=== PATIENT | male | born 1945 | race Caucasian/White ===

== ENCOUNTER 2016-08-15 05:56 | Inpatient (IN) | payer MEDICARE ==
[~2016-08-15] VITALS: Ht 167.6 cm; Wt 71.5 kg
[~2016-08-15 05:56] MED LIST: ADVAIR 500/501 DISK INH; ALDACTONE25 MG PO; ANUSOL-HC 2.5%30 GM RC; ASPIRIN81 MG PO; BYSTOLIC5 MG PO; CATAPRES0.1 MG PO; CELEXA20 MG PO; CORDARONE200 MG PO; EXFORGE HCT 101 EAC2 PO; FERREX 150 PLUS1 CAP PO; FLAGYL500 MG PO; FOLIC ACID1 MG PO; HYDROCODONE-APA1 TAB PO; K-DUR20 MEQ PO; K-TAB10 MEQ PO; LASIX20 MG PO; LASIX40 MG PO; MELATONIN 3 MG1 TAB PO; METOPROLOL TART50 MG PO; MUCINEX DM ER1 EAC1 PO; PLAVIX75 MG PO; PRAVACHOL20 MG PO; PREDNISONE20 MG PO; PROTONIX40 MG PO; SODIUM BICARBO650 MG PO; STERAPRED 5MG 125 MG PO; TESSALON PERLE100 MG PO; THIAMINE HCL50 MG PO; XOPENEX 1.1.25 MG/3 UPD; ZITHROMAX250 MG PO; ZITHROMAX500 MG PO
[2016-08-15 06:40] LABS: BASOPHILS 0.3 % (0.0-2.0); EOSINOPHILS 0.3 % (0-7); HEMATOCRIT 37.7 % (42.0-54.0); HEMOGLOBIN 12.1 g/dL (13.5-17.5); IMMATURE GRANULOCYTES 0.4 % (0-5); MCH 28.1 pg (26.0-34.0); MCHC 32.1 g/dL (31.0-37.0); MCV 87.5 fL (80.0-100.0); MEAN PLATELET VOLUME 10.5 fL (7.4-10.4); PLATELET COUNT 242 10x3/uL (130-400); RBC 4.31 10x6/uL (4.20-6.10); RDW 14.8 % (11.5-14.5); WBC 10.3 10x3/uL (4.8-10.8)
[2016-08-15 07:07] LABS: ALBUMIN 3.4 g/dL (3.4-5.0); ANION GAP 17.3 mmol/L (8-16); BILIRUBIN - TOTAL 1.3 mg/dL (0.2-1.3); CALCIUM 8.8 mg/dL (8.5-10.1); CARBON DIOXIDE 20.4 mmol/L (21.0-32.0); CREATININE - SERUM 2.1 mg/dL (0.6-1.3); POTASSIUM - SERUM 3.7 mmol/L (3.5-5.1); PROTEIN - SERUM 6.8 g/dL (6.4-8.2)
[2016-08-15 07:23] LABS: TROPONIN-I 0.072 ng/mL (0.000-0.060)
[2016-08-15 09:56] VITALS: BP 176/111; BMI 25.8
[2016-08-15] MEDS ORDERED: BYSTOLIC5 MG PO (10:32)
[2016-08-15] MEDS ORDERED: MUCINEX DM ER1 EAC1 PO (10:34)
[2016-08-15] MEDS ORDERED: LASIX40 MG PO (10:36)
[2016-08-15 11:47] VITALS: BP 156/106
[2016-08-15 15:54] VITALS: BP 150/97
--- NOTE | 2016-08-15 20:21 | NUR ---
BEDSIDE SHIFT REPORT COMPLETED PT LAYING IN BED EYES CLOSED PT APPERS TO BE SLEEPING PT ON 2LNC AND RESPERATIONS EVEN AND UNLABORED. TELEMETRY READING SR AND NO DISTRESS OBSERVED CALL LIGHT IN REACH SRX2 BED LOW AND LOCKED WILL MONITOR
[2016-08-15 20:37] VITALS: BP 150/87
--- NOTE | 2016-08-15 22:29 | NUR ---
PT ASSESSMENT COMPLETED NO DISTRESS OBSERVED CALL LIGHT IN REACH SRX2 BED LOW AND LOCKED RESPERATIONS EVEN AND UNLABORED WILL MONITOR
[2016-08-16 00:17] VITALS: BP 135/97
[2016-08-16 04:29] VITALS: BP 142/109
[2016-08-16 05:09] LABS: BASOPHILS 0.1 % (0.0-2.0); EOSINOPHILS 0 % (0-7); HEMATOCRIT 35.3 % (42.0-54.0); HEMOGLOBIN 11.3 g/dL (13.5-17.5); IMMATURE GRANULOCYTES 0.4 % (0-5); LYMPHOCYTES 2.6 % (15-50); MCV 87.4 fL (80.0-100.0); MEAN PLATELET VOLUME 10.6 fL (7.4-10.4); MONOCYTES 2.8 % (2-11); NEUTROPHILS 94.1 % (40-80); PLATELET COUNT 204 10x3/uL (130-400); RBC 4.04 10x6/uL (4.20-6.10); RDW 14.8 % (11.5-14.5); WBC 11.4 10x3/uL (4.8-10.8)
[2016-08-16 05:43] LABS: ANION GAP 16.8 mmol/L (8-16); CREATININE - SERUM 2.5 mg/dL (0.6-1.3); POTASSIUM - SERUM 3.8 mmol/L (3.5-5.1)
[2016-08-16 07:55] VITALS: BP 148/94
--- NOTE | 2016-08-16 09:34 | NUR ---
RESP UL ON 02 2L NC. TELEMETRY SR. CALL LIGHT IN REACH. WILL MONITOR NEEDS.
[2016-08-16 12:00] VITALS: BP 144/91
[2016-08-16 16:00] VITALS: BP 176/114
--- NOTE | 2016-08-16 19:19 | NUR ---
BEDSIDE SHIFT REPORT COMPLETED PT LAYING IN BED ON LEFT SIDE EYES CLOSED PT APPERS TO BE SLEEPING NO DISTRESS OBSERVED RESPERATIONS EVEN AND UNLABORED ON 2LNC IVP SALINE LOCKED WILL MONITOR CALL LIGHT IN REACH SRX2 BED LOW AND LOCKED
[2016-08-16 20:00] VITALS: BP 139/93
--- NOTE | 2016-08-16 21:59 | NUR ---
PT LAYING IN BED EYES CLOSED NO DISTRESS OBSERVED PT APPERS TO BE SLEEPING CALL LIGHT IN REACH SRX2 WILL MONITOR
[2016-08-17] VITALS: BP 120/75
[2016-08-17 04:00] VITALS: BP 138/91
[2016-08-17 05:46] LABS: BASOPHILS 0 % (0.0-2.0); EOSINOPHILS 0 % (0-7); HEMATOCRIT 36.6 % (42.0-54.0); HEMOGLOBIN 11.5 g/dL (13.5-17.5); IMMATURE GRANULOCYTES 0.5 % (0-5); MCH 27.8 pg (26.0-34.0); MCHC 31.4 g/dL (31.0-37.0); MCV 88.6 fL (80.0-100.0); MEAN PLATELET VOLUME 10.8 fL (7.4-10.4); MONOCYTES 2.3 % (2-11); NEUTROPHILS 95.2 % (40-80); PLATELET COUNT 231 10x3/uL (130-400); RBC 4.13 10x6/uL (4.20-6.10); RDW 15.1 % (11.5-14.5)
[2016-08-17 06:04] LABS: ANION GAP 16.1 mmol/L (8-16); CALCIUM 9.1 mg/dL (8.5-10.1); CARBON DIOXIDE 25.4 mmol/L (21.0-32.0); CREATININE - SERUM 2.9 mg/dL (0.6-1.3); POTASSIUM - SERUM 3.5 mmol/L (3.5-5.1)
[2016-08-17 06:11] LABS: WBC 17.2 10x3/uL (4.8-10.8)
--- NOTE | 2016-08-17 07:14 | NUR ---
RESTING QUIETLY EYES CLOSED RESP UNLABORED NAD NOTED
[2016-08-17 08:07] VITALS: BP 137/89
[2016-08-17 12:07] VITALS: BP 136/98
[2016-08-17 12:37] VITALS: Ht 167.6 cm; Wt 71.5 kg
[2016-08-17 16:00] VITALS: BP 135/82
[2016-08-17 19:00] VITALS: BP 139/82
[2016-08-18] VITALS (7 sets, daily range): BP systolic 113–191; BP diastolic 68–114
--- NOTE | 2016-08-18 01:14 | NUR ---
RESTING, WATCHING TELEVISION. UNLABORED BREATHING, TELEMETRY SHOWING 71 BPM IN NSR. 2L NC FOR O2 THERAPY. BED LOW AND LOCKED, CALL LIGHT IN REACH, WILL CONTINUE TO MONITOR.
--- NOTE | 2016-08-18 01:22 | NUR ---
NO S&S OF ACUTED DISTRESS NOTED.
--- NOTE | 2016-08-18 03:05 | NUR ---
RESTING WITH EYES CLOSED, RESPERATIONS EVEN, NO S/S DISTRESS NOTED.
--- NOTE | 2016-08-18 07:14 | NUR ---
0655-AM ROUNDING DONE. ON HEART MONITOR SHOWING SR, HR 60. ON 2L PER NC, BILATERAL LUNGS ARE CLEAR. SALINE LOCK SEEN TO RIGHT FOREARM. DENIES NEEDS AT PRESENT TIME. WILL CONTINUE TO MONITOR.
--- NOTE | 2016-08-18 12:27 | NUR ---
JUST FINISHING HIS LUNCH. DENIES NEEDS AT THIS TIME. WILL CONTINUE TO MONITOR.
[2016-08-18 12:33] LABS: BASOPHILS 0 % (0.0-2.0); EOSINOPHILS 0 % (0-7); HEMOGLOBIN 12.8 g/dL (13.5-17.5); IMMATURE GRANULOCYTES 0.2 % (0-5); LYMPHOCYTES 1.6 % (15-50); MCH 28.3 pg (26.0-34.0); MCHC 31.2 g/dL (31.0-37.0); NEUTROPHILS 95.2 % (40-80); PLATELET COUNT 220 10x3/uL (130-400); RBC 4.52 10x6/uL (4.20-6.10)
[2016-08-18 12:34] LABS: MCV 90.7 fL (80.0-100.0); WBC 12.8 10x3/uL (4.8-10.8)
[2016-08-18 12:40] LABS: ANION GAP 13.6 mmol/L (8-16); CALCIUM 8.2 mg/dL (8.5-10.1); CARBON DIOXIDE 29.1 mmol/L (21.0-32.0); CREATININE - SERUM 2.7 mg/dL (0.6-1.3); POTASSIUM - SERUM 3.7 mmol/L (3.5-5.1)
--- NOTE | 2016-08-18 15:29 | NUR ---
B/P IS 191/117, CATAPRESS GIVEN ORDERED.
--- NOTE | 2016-08-18 16:18 | NUR ---
RE-CHECKED B/P WITH RESULTS OF 113/68
--- NOTE | 2016-08-18 16:27 | NUR ---
CALL PLACED TO SABAS MARTINEZ NP TO SEE ABOUT GIVING LASIX B/P IS 113/68. AWAITING CALL BACK.
--- NOTE | 2016-08-18 17:04 | NUR ---
SABAS MARTINEZ TO CALL BACK AND TELL ME IT IS OKAY TO HOLD THE LASIX FOR TODAY.
--- NOTE | 2016-08-18 19:50 | NUR ---
ASSESSMENT COMPLETE. A&O. RESPERAITONS EVEN ON 02 AT 2 LITER. IV TO RIGHT FOREARM SL. PT DENIES PAIN OR NEEDS, BED LOW, CL IN REACH.
[2016-08-19 01:12] VITALS: BP 123/74
--- NOTE | 2016-08-19 01:48 | NUR ---
RESTING QUIETLY EYES CLOSED RESP UNLABORED NAD NOTED
--- NOTE | 2016-08-19 02:39 | NUR ---
RESTING WITH EYES CLOSED, RESPERATIONS EVEN, NO S/S DISTRESS NOTED.
[2016-08-19 05:21] VITALS: BP 121/71
[2016-08-19 06:56] LABS: BASOPHILS 0 % (0.0-2.0); EOSINOPHILS 0 % (0-7); HEMATOCRIT 38.7 % (42.0-54.0); IMMATURE GRANULOCYTES 0.5 % (0-5); LYMPHOCYTES 1.9 % (15-50); MCH 27.8 pg (26.0-34.0); MCV 89.6 fL (80.0-100.0); MONOCYTES 3.4 % (2-11); NEUTROPHILS 94.2 % (40-80); PLATELET COUNT 217 10x3/uL (130-400); RBC 4.32 10x6/uL (4.20-6.10); RDW 14.7 % (11.5-14.5); WBC 11.5 10x3/uL (4.8-10.8)
[2016-08-19 07:07] LABS: ANION GAP 11.2 mmol/L (8-16); CALCIUM 8.6 mg/dL (8.5-10.1); CARBON DIOXIDE 32.2 mmol/L (21.0-32.0); CREATININE - SERUM 2.7 mg/dL (0.6-1.3); POTASSIUM - SERUM 3.4 mmol/L (3.5-5.1)
[2016-08-19 08:21] VITALS: BP 133/85
--- NOTE | 2016-08-19 09:17 | NUR ---
TELEMETRY SR. RESP UL ON 02 2L NC. CALL LIGHT IN REACH. WILL MONITOR NEEDS.
--- NOTE | 2016-08-19 09:39 | NUR ---
AMBULATES 250 FT WITH PT ASSIST.
[2016-08-19 12:05] VITALS: BP 135/77
--- NOTE | 2016-08-19 14:16 | CN ---
PATIENT NAME:HUI FAUST MEDICAL RECORD: [id number] : 49 LOCATION:[facility] D.2116 ADMIT DATE: 08/15/16 ACCOUNT: [id number] CONSULTING PHYSICIAN: SERA BERTRAND MD REFERRING PHYSICIAN: JOVAN SAEED MD DATE OF CONSULTATION: HISTORY OF PRESENT ILLNESS: A 71-year-old gentleman with a history of coronary artery disease as well as cardiomyopathy, atrial fibrillation and longstanding tobacco, alcohol and illicit substance abuse. Apparently, he ran out of his oxygen, was at neighbor's house. The patient is a very poor historian, began getting more dyspneic as of late. He has a history of respiratory failure in the past requiring intubation secondary to COPD, noted to have markedly elevated BNP as well as elevated troponin. We are asked to see him concerning his cardiovascular status. PAST MEDICAL HISTORY: Include: 1. History of hypertension. 2. O2 dependent COPD. 3. Prostatic cancer. 4. Cardiomyopathy. 5. Coronary artery disease as described above. 6. Noncompliance. ALLERGIES: None known. MEDICATIONS: When taken, include Plavix 75 daily, pravastatin 20 daily, clonidine 0.1 p.r.n., Aldactone 25 daily, amiodarone 200 b.i.d., Lopressor 50 b.i.d., Blair 10/325 daily, aspirin 81 daily, Lasix 40 daily and Protonix 40 daily. SOCIAL HISTORY: He is a smoker, drinks intermittently heavily, occasionally uses amphetamine and/or cocaine. REVIEW OF SYSTEMS: The patient reports easy bruising but reports no swollen glands. The patient reports no fever, no night sweats, no significant weight gain, no significant weight loss. No significant exercise tolerance. The patient reports no dry eyes, no irritation, no vision change. Patient reports no difficulty hearing and no ear pain. Patient reports no frequent nose bleeds or nose and sinus problems. Patient reports on arm pain on exertion. No shortness of breath while lying down. No history of heart murmur. Patient reports no cough, no wheezing or coughing up blood. Patient reports no abdominal pain, no vomiting. Normal appetite. No diarrhea and not vomiting blood. No nausea and no constipation. Patient reports no incontinence. No difficulty urinating. No hematuria. No increased frequency. Patient reports no muscle aches. No weakness, no arthralgias, no back pain. No swelling of the extremities. Patient reports no abnormal mole, no jaundice, no rashes. Reports no loss of consciousness. No weakness and no numbness. No seizures, dizziness, or headaches. The patient reports no depression, no sleep disturbance, feeling safe in a relationship and no alcohol abuse. Patient reports on fatigue. Reports no runny nose or sinus pressure. No itching, no hives, and no frequent sneezing. PHYSICAL EXAMINATION: GENERAL: Unkempt gentleman in no acute distress, poor historian. CONSULT REPORT [id number] GOVINDHUI Clare VITAL SIGNS: Blood pressure 176/111 and pulse 89. HEENT: Normocephalic and atraumatic. NECK: No bruits noted. HEART: Regular. S3 gallop is noted, II/ systolic ejection murmur. LUNGS: Fair air excursion, expiratory wheezes. ABDOMEN: Soft and nontender. EXTREMITIES: Pulses are decreased 1+. There is no edema. DIAGNOSTIC DATA: ECG without acute change. IMPRESSION: Elevated BNP, suspect exacerbation secondary to noncompliance with O2, etc., [id number] systolic dysfunction, we will diurese gently and restart home meds. TRANSINT:[id number] Voice Confirmation ID: [id number] DOCUMENT ID: [id number] SERA BERTRAND MD at 1416 CC: [id number] DICTATION DATE: 08/15/16 1118 PRINCIPAL GIFTS OFFICER: 08/15/161955 ADM IN [facility] [address] [id number]
--- NOTE | 2016-08-19 14:16 | EC ---
PATIENT:HUI FAUST DATE OF SERVICE: 08/15/16 SEX: M MEDICAL RECORD: [id number] DATE OF : [birth year] LOCATION:D.M2 D.211 AGE OF PATIENT: 71 ADMISSION DATE: 08/15/16 REFERRING PHYSICIAN: INTERPRETING PHYSICIAN: SERA BERTRAND MD ECHOCARDIOGRAM REPORT ECHO CHARGES 4 ECHO COMPLETE CLINICAL DIAGNOSIS: CHF ECHOCARDIOGRAPHIC MEASUREMENTS (adult normal given) AC root (d.<3.7cm) 3.3 LV Septum d (<1.2 cm> 1.6 Valve Excursion 1.6 LV Septum (systole) 1.8 Left Atria (s.<4.0cm> 4.3 LVPW d(<1.2cm) 1.4 RV (d.<2.3cm) 3.5 LVPW (sytole) 1.6 LV diastole(<5.6CM) 6.3 MV E-F(>70mm/sec) LV systole 5.3 LVOT Diameter 1.8 MV exc.(>10mm) 1.2 Est.ejection fraction (50-75%) Pericardial Effusion N DOPPLER: LVIT A 73.0 E 93.0 LA RVSP 16 LVOT 106 AOP1/2T Asc. Ao 140 RVOT 99 RA PA 149 AV Gradient Peak 7.89 AV Mean 4.09 AV Area 1.7 MV Gradient Peak 4.4 MV Mean 1.56 MV Area COMMENTS: Reel Cutter: Wilma BRUNNER Shipper/Receiver:Eula Callaway TAPE# PACS DATE OF SERVICE: 08/15/2016 Adequate 2D echo, color flow and spectral Doppler, and M-mode. LVH is present. LV internal dimensions are dilated at 6.3 cm. LV is globally hypokinetic with EF reduced, estimated EF 30% to 35%. Aortic valve sclerosis without stenosis by Doppler interrogation. The left atrium is mildly dilated at 4.3 cm. Mitral valve shows no prolapse. Mild MR. Right-sided chamber is grossly normal. Trace TR. TRANSINT:[id number] Voice Confirmation ID: [id number] DOCUMENT ID: [id number] ECHOCARDIOGRAM REPORT [id number] HUI FAUST 08/19/2013 Edited to correct date of service, dmm. SERA BERTRAND MD at 0958 CC: [id number] DICTATION DATE: 08/16/16 1051 LOG WASHER: 08/16/16 193 ADM IN [facility] [address] [id number]
[2016-08-19 16:00] VITALS: BP 128/71
--- NOTE | 2016-08-19 19:24 | NUR ---
RESUMED CARE OF PT, LYING IN BED RESPIRATIONS EVEN AND UNLABORED ON 2LPM VIA NC. UPDRAFT IN PROGRESS. 64 SR ON TELEMETRY. LEFT FOREARM SALINE LOCKED. NO NEEDS VOICED AT THIS TIME. WILL CONTINUE TO MONITOR. SEE NURSE ASSESSMENT. CALL LIGHT IN REACH.
[2016-08-19 19:56] VITALS: BP 115/66
[2016-08-20] VITALS: BP 122/72
--- NOTE | 2016-08-20 01:30 | NUR ---
LYING IN BED, CALL LIGHT IN REACH. WILL CONTINUE WITH PLAN OF CARE.
[2016-08-20 04:00] VITALS: BP 121/73
[2016-08-20 06:05] LABS: BASOPHILS 0 % (0.0-2.0); EOSINOPHILS 0 % (0-7); HEMATOCRIT 39.2 % (42.0-54.0); HEMOGLOBIN 12.1 g/dL (13.5-17.5); IMMATURE GRANULOCYTES 0.5 % (0-5); LYMPHOCYTES 4.4 % (15-50); MCH 27.5 pg (26.0-34.0); MCHC 30.9 g/dL (31.0-37.0); MCV 89.1 fL (80.0-100.0); MEAN PLATELET VOLUME 10.4 fL (7.4-10.4); MONOCYTES 6.9 % (2-11); NEUTROPHILS 88.2 % (40-80); PLATELET COUNT 187 10x3/uL (130-400); RDW 14.5 % (11.5-14.5); WBC 10.1 10x3/uL (4.8-10.8)
--- NOTE | 2016-08-20 06:28 | NUR ---
NO CHANGES FROM PREVIOUS ASSESSMENT, CALL LIGHT IN REACH.
[2016-08-20 06:44] LABS: ANION GAP 12.8 mmol/L (8-16); CALCIUM 8.6 mg/dL (8.5-10.1); CREATININE - SERUM 2.8 mg/dL (0.6-1.3); POTASSIUM - SERUM 3.8 mmol/L (3.5-5.1)
[2016-08-20 08:34] VITALS: BP 116/80
--- NOTE | 2016-08-20 09:46 | NUR ---
TELEMETRY SR. AMBULATES HALLWAY WITH PT ON RA. 02 SATS 95%. WILL CONT. PLAN OF CARE.
[2016-08-20 11:00] VITALS: BP 122/73
--- NOTE | 2016-08-20 11:49 | NUR ---
Patient Name: HUI FAUST Admission Status: ER Accout number: [id number] Admission Date: 08-15-2016 : 1945 Admission Diagnosis:ACUTE ON CHRONIC SYSTOLIC (CONGESTIVE) HEART FAILURE Attending: CHRISTOPHE Current LOS: 5 Anticipated DC Date: 08-20-2016 Planned Disposition: Inpatient Rehab Primary Insurance: MEDICARE A & B PLANNED EXTERNAL PROVIDER: [facility] Discharge Planning Comments: * Is the patient Alert and Oriented? Yes 0 * How many steps to enter\exit or inside your home? 3 0 * PCP NO PRIMARY DOCTOR PT DID NOT FOLLOW UP WITH [facility] INSTRUCTED AFTER LAST VISIT 05-08-16. 0 * Pharmacy [facility] [place] 0 * Preadmission Environment Home with Family 0 * ADLs Independent 0 * Equipment Cane Oxygen Walker 0 * Other Equipment [facility] 0 * List name and contact numbers for known caregivers / representatives who currently or will assist patient after discharge: NATY FAUST, MOTHER, (LIVES AT [facility]) 0 * Community resources currently utilized None 0 * Please name any agencies selected above. NONE 0 * Additional services required to return to the preadmission environment? Yes * Can the patient safely return to the preadmission environment? Yes 0 * Has this patient been hospitalized within the prior 30 days at any hospital? No 0 CM MET WITH PT IN ROOM TO DISCUSS DISCHARGE PLANNING AND NEEDS. PT REPORTS LIVING AT HOME INDEPENDENTLY WITH FRIENDS AT [address] [place] [address] [place]. PT HAS A CANE, WALKER AND OXYGEN THAT HE USES AT NIGHT FROM [facility]. PT HAS NO OUTSIDE SERVICES ASSISTING IN THE HOME. CM DISCUSSED AVAILABILITY OF HOME HEALTH, REHAB SERVICES AND MEDICAL EQUIPMENT. PT WOULD LIKE REHAB AT [place] IF THEY WILL ACCEPT HIM AND PLANS TO RETURN TO HIS FRIENDS HOME AT DISCHARGE. PT REPORTS HIS FRIEND WILL PICK HIM UP FOR DISCHARGE HOME. IMPORTANT MESSAGE FROM MEDICARE PROVIDED AND EXPLAINED. CM ENCOURAGED PT TO CONTACT AND MAKE APPOINTMENT WITH [facility] TO GET ESTABLISHED WITH PRIMARY CARE DOCTOR. RN AZ TAMAYO SPOKE TO CARA OF [facility], THEY PLAN TO ACCEPT PT TODAY FOR REHAB. [facility] TO CONTACT MED 2 NURSE WITH ROOM NUMBER WHEN READY TO ACCEPT PT AND NURSE REPORT. Special Education Teaching Assistant: Miguel Calderon
[2016-08-20] MEDS ORDERED: PREDNISONE10 MG PO (12:57)
[2016-08-20 16:39] VITALS: BP 128/68
--- NOTE | 2016-08-20 19:32 | NUR ---
RESUMED CARE OF PT, LYING IN BED RESPIRATIONS EVEN AND UNLABORED ON ROOM AIR. 62 SR ON TELEMETRY. AWAITING ACCEPTANCE FROM REHAB, CALL LIGHT IN REACH. WILL CONTINUE TO MONITOR. SEE NURSE ASSESSMENT.
[2016-08-20 20:00] VITALS: BP 125/59
[2016-08-21] VITALS: BP 128/75
--- NOTE | 2016-08-21 03:19 | NUR ---
AUTOPSY PATHOLOGIST AT BEDSIDE TO OBTAIN VITALS, CALL LIGHT IN REACH. WILL CONTINUE WITH PLAN OF CARE.
[2016-08-21 06:07] LABS: ANION GAP 13.1 mmol/L (8-16); BASOPHILS 0.1 % (0.0-2.0); CALCIUM 8.6 mg/dL (8.5-10.1); CARBON DIOXIDE 30.2 mmol/L (21.0-32.0); CREATININE - SERUM 2.9 mg/dL (0.6-1.3); EOSINOPHILS 0 % (0-7); HEMATOCRIT 39.6 % (42.0-54.0); HEMOGLOBIN 12.4 g/dL (13.5-17.5); IMMATURE GRANULOCYTES 0.6 % (0-5); LYMPHOCYTES 3.2 % (15-50); MCH 27.7 pg (26.0-34.0); MCHC 31.3 g/dL (31.0-37.0); MCV 88.6 fL (80.0-100.0); MEAN PLATELET VOLUME 11.3 fL (7.4-10.4); MONOCYTES 7.6 % (2-11); NEUTROPHILS 88.5 % (40-80); PLATELET COUNT 198 10x3/uL (130-400); POTASSIUM - SERUM 4.3 mmol/L (3.5-5.1); RBC 4.47 10x6/uL (4.20-6.10); RDW 14.4 % (11.5-14.5); WBC 10.8 10x3/uL (4.8-10.8)
[2016-08-21 07:26] VITALS: BP 136/81
--- NOTE | 2016-08-21 09:57 | NUR ---
TELEMETRY SR. CALL LIGHT N REACH. WILL CONT. PLAN OF CARE.
--- NOTE | 2016-08-21 11:17 | NUR ---
RECIEVED/WC FROM ACUTE CARE TO ROOM 1118B.ORIENTED TO ROOM AND SURROUNDINGS;ACTIVITY,FALL PRECAUTIONS.CL SYSTEM.WATER GIVEN AND BED ALARM SET.
--- NOTE | 2016-08-21 11:39 | NUR ---
DC PLANS CALLED TO REHAB. ESCORTED TO REHAB BY W/C.
--- NOTE | 2016-09-28 12:39 | DS ---
PATIENT:HUI FAUST :49 MEDICAL RECORD: [id number] DISCHARGE SUMMARY ADMISSION DATE: 08/15/16 DISCHARGE DATE: 08/21/16 ADMISSION DATE: 08/15/2016. DISCHARGE DATE: 08/21/2016. DISCHARGE DIAGNOSES: 1. Atrial fibrillation with rapid ventricular response. 2. Acute shortness of breath. 3. Acute exacerbation of chronic obstructive pulmonary disease. 4. Hypertension. 5. Cocaine abuse. 6. Acute systolic congestive heart failure. 7. Chronic kidney disease. CONSULTS: Dr. Juarez Callaway. HOSPITAL COURSE: The full H&P is listed elsewhere on the chart for this patient, who was admitted with acute shortness of breath, was noted to have a COPD exacerbation and some zeosb-kd-bbieazq systolic dysfunction. He was started on aggressive pulmonary toilet with updrafts and IV steroids as well as gentle diuresis with IV Lasix. A 2D Echo revealed an EF of 30% to 35% with mild MR and TR. His LV function was improved from a previous echo back in 2014, which showed his EF at 10%. The patient did have some atrial fib with RVR, was placed on p.o. amiodarone and metoprolol for rate control. He did convert to normal sinus rhythm on the antiarrhythmic and his rates were controlled. He was counseled on cessation of crack cocaine. His medical therapy in terms of his steroids were deescalated. He was ambulating in the hoffman about 100 feet without any problems. He was thought to be medically stable and was discharged to home to follow up in the outpatient setting TRANSINT:[id number] Voice Confirmation ID: [id number] DOCUMENT ID: [id number] Dictated By: CHRIS RUIZ I have interviewed/examined the above patient and agree with these documented findings. CHRIS ARIZA MD at 1233 at 1238 CC: [id number] DICTATION DATE: 09/24/16 08 MACHINING TECHNICIAN: 09/24/16 2314 DIS IN 08/21/16 [place] [id number] [place] [id number]
== END 2016-08-21 11:40 | DRG 291 ==
LOC: D.ER 05:56 → D.REHAB 08:52 → D.M2 08:52 → D.REHAB 08-21 11:05 → D.M2 08-21 11:34
PROVIDERS: Family Medicine; ADMIT Family Medicine
DX: I13.0 Hypertensive heart and chronic kidney disease with heart failure and stage 1 through stage 4 chronic kidney disease, or unspecified chronic kidney disease (principal); I50.23 Acute on chronic systolic (congestive) heart failure; N18.4 Chronic kidney disease, stage 4 (severe); J44.1 Chronic obstructive pulmonary disease with (acute) exacerbation; N17.9 Acute kidney failure, unspecified; I25.10 Atherosclerotic heart disease of native coronary artery without angina pectoris; I42.9 Cardiomyopathy, unspecified; I48.91 Unspecified atrial fibrillation; F10.10 Alcohol abuse, uncomplicated; F14.10 Cocaine abuse, uncomplicated; E78.5 Hyperlipidemia, unspecified; I08.1 Rheumatic disorders of both mitral and tricuspid valves; R73.9 Hyperglycemia, unspecified; T38.0X5A Adverse effect of glucocorticoids and synthetic analogues, initial encounter; Z99.81 Dependence on supplemental oxygen; Z91.19 Patient's noncompliance with other medical treatment and regimen; Z72.0 Tobacco use

== ENCOUNTER 2016-08-21 11:36 | Inpatient (IN) | payer MEDICARE ==
[~2016-08-21] VITALS: Ht 167.6 cm; Wt 71.2 kg
[~2016-08-21 11:36] MED LIST changes: +PREDNISONE10 MG PO
--- NOTE | 2016-08-21 11:41 | NUR ---
RECIEVED FROM ACUTE CARE/ TO ROOM 1118B.ORIENTED TO ROOM AND SURROUNDINGS.REVIEWED CL AND PREVENTION OF FALLS.ALARM SET.STATES UNDERSTANDING.
--- NOTE | 2016-08-21 16:00 | NUR ---
RESTING QUIETLY IN BED.DENIES NEEDS.CL IN REACH.HAD 1 ACCIDENT WITH URINAL;CHANGED INTO NEW SCRUBS.
[2016-08-21 16:04] VITALS: BP 118/71; BMI 25.5
[2016-08-21 19:50] VITALS: BP 117/75
--- NOTE | 2016-08-21 20:30 | NUR ---
PT RESTING IN BED. HAS O2 AT BEDSIDE FOR PRN USE. PT REQ AND REC'D PRN MELATONIN ALONG WITH HS MEDS. WCTM. BED LOW. CL IN REACH.
--- NOTE | 2016-08-21 23:15 | NUR ---
PT RESTING, EYES CLOSED. BED LOW. CL IN REACH.
--- NOTE | 2016-08-22 02:45 | NUR ---
PT RESTING, EYES CLOSED. BED LOW. CL IN REACH.
--- NOTE | 2016-08-22 05:10 | NUR ---
PT AWAKE, RESTING IN BED, DENIES NEEDS. WCTM BED LOW. CL IN REACH.
[2016-08-22 07:00] VITALS: BP 104/45
--- NOTE | 2016-08-22 08:00 | NUR ---
SHIFT ASSMT COMPLETED.DENIES NEEDS.EATING BREAKFAST.
[2016-08-22 08:10] LABS: BASOPHILS 0 % (0.0-2.0); EOSINOPHILS 0.7 % (0-7); HEMATOCRIT 41.2 % (42.0-54.0); HEMOGLOBIN 12.9 g/dL (13.5-17.5); IMMATURE GRANULOCYTES 0.8 % (0-5); MCH 27.8 pg (26.0-34.0); MCHC 31.3 g/dL (31.0-37.0); MCV 88.8 fL (80.0-100.0); MEAN PLATELET VOLUME 9.9 fL (7.4-10.4); MONOCYTES 9.6 % (2-11); NEUTROPHILS 81.9 % (40-80); PLATELET COUNT 175 10x3/uL (130-400); RBC 4.64 10x6/uL (4.20-6.10); RDW 14.5 % (11.5-14.5); WBC 10.1 10x3/uL (4.8-10.8)
[2016-08-22 08:24] LABS: CALCIUM 8.3 mg/dL (8.5-10.1); CARBON DIOXIDE 30.2 mmol/L (21.0-32.0); CREATININE - SERUM 2.7 mg/dL (0.6-1.3); POTASSIUM - SERUM 4.2 mmol/L (3.5-5.1)
--- NOTE | 2016-08-22 12:00 | NUR ---
EATING LUNCH.DENIES NEEDS.
--- NOTE | 2016-08-22 16:00 | NUR ---
RESTING ON SIDE.CL IN REACH.
[2016-08-22 17:01] VITALS: Ht 167.6 cm; Wt 71.2 kg
--- NOTE | 2016-08-22 19:30 | NUR ---
PT IS RESTING IN BED WITH EYES OPEN. ALERT AND ORIENTED X 3. VSS. NO 02 ON. NO SOB NOTED. SR'S ARE UP X 3 IN BED. CALL LIGHT AND BEDSIDE TABLE ARE WITHIN EASY REACH.
[2016-08-22 20:00] VITALS: BP 110/61
--- NOTE | 2016-08-22 22:03 | NUR ---
PT IS RESTING IN BED WITH EYES CLOSED. RESPS ARE EVEN AND UNLABORED. NO ACUTE DISTRESS NOTED.
--- NOTE | 2016-08-23 00:30 | NUR ---
PT RESTING IN BED WITH EYES CLOSED. NO ACUTE DISTRESS NOTED.
--- NOTE | 2016-08-23 01:05 | NUR ---
pt stated he couldn't sleep and requested vanilla ice cream and a coke, pt eating the ice cream now. Needed some assistance to get the top of of the ice cream.
--- NOTE | 2016-08-23 03:51 | NUR ---
RESTING QUIETLY IN BED WITH EYES CLOSED. NO DISTRESS NOTED.
--- NOTE | 2016-08-23 06:15 | NUR ---
pt resting quietly, light on in room, ate 100% of midnight snack. respirations reg and unlabored.
[2016-08-23 07:00] VITALS: BP 138/72
--- NOTE | 2016-08-23 08:00 | NUR ---
SHIFT ASSMT COMPLETED.AWAKE AND ALERT.DENIES NEEDS.CL IN REACH.MEAL PROVIDED.
--- NOTE | 2016-08-23 12:00 | NUR ---
MEAL TRAY GIVEN.DENIES NEEDS.
--- NOTE | 2016-08-23 20:00 | NUR ---
PT RESTING IN BED WATCHING TV. ALERT AND ORIENTED X 3. DENIES PAIN OR DISCOMFORT AT THIS TIME. VSS. SR'S ARE UP X 2 IN BED. CALL LIGHT AND BEDSIDE TABLE ARE WITHIN EASY REACH.
[2016-08-23 20:39] VITALS: BP 127/73
--- NOTE | 2016-08-23 22:15 | NUR ---
RESTING IN BED WITH EYES CLOSED. NO DISTRESS NOTED.
--- NOTE | 2016-08-24 00:12 | NUR ---
PT RESTING IN BED, AWAKE, DENIES NEEDS AT THIS TIME. BED LOW. CL IN REACH.
--- NOTE | 2016-08-24 06:06 | NUR ---
RESTING IN BED WITH EYES CLOSED. AWOKE EASILY TO VERBAL STIMULI. TOLERATED AM MED WITHOUT DIFFICULTY. NO NEEDS VOICED.
[2016-08-24 06:50] LABS: ANION GAP 12.7 mmol/L (8-16); CALCIUM 8.3 mg/dL (8.5-10.1); CARBON DIOXIDE 27.9 mmol/L (21.0-32.0); CREATININE - SERUM 2.6 mg/dL (0.6-1.3); POTASSIUM - SERUM 4.6 mmol/L (3.5-5.1)
[2016-08-24 06:53] LABS: BASOPHILS 0.1 % (0.0-2.0); EOSINOPHILS 0.1 % (0-7); HEMATOCRIT 39.1 % (42.0-54.0); HEMOGLOBIN 12.3 g/dL (13.5-17.5); IMMATURE GRANULOCYTES 1.3 % (0-5); LYMPHOCYTES 4.9 % (15-50); MCH 27.5 pg (26.0-34.0); MCHC 31.5 g/dL (31.0-37.0); MCV 87.3 fL (80.0-100.0); MEAN PLATELET VOLUME 11.1 fL (7.4-10.4); MONOCYTES 6.2 % (2-11); NEUTROPHILS 87.4 % (40-80); RBC 4.48 10x6/uL (4.20-6.10); RDW 14.7 % (11.5-14.5)
[2016-08-24 07:00] LABS: PLATELET COUNT 219 10x3/uL (130-400); WBC 13.9 10x3/uL (4.8-10.8)
[2016-08-24 07:54] VITALS: BP 118/67
--- NOTE | 2016-08-24 18:36 | NUR ---
RESTING QUIETLY IN BED WATCHING TV. CALL LIGHT IN REACH
[2016-08-24 19:15] VITALS: BP 118/69
--- NOTE | 2016-08-24 19:40 | NUR ---
PT. REQUESTING BED ALARM WAIVER FORM. FORM EXPLAINED AND SIGNED BY PT. PT. HAS NO VOICED NEEDS AT THIS TIME. ASSESSMENT COMPLETED. CALL LIGHT WITHIN REACH FOR ANY NEEDS PT. MAY HAVE.
--- NOTE | 2016-08-24 22:25 | NUR ---
PT. IN BED WITH HOB UP FOR COMFORT AND AWAKENS EASILY UPON MY ENTERING ROOM. PT. DENIES ANY NEEDS AND HAS HIS CALL LIGHT WITHIN REACH.
--- NOTE | 2016-08-25 02:11 | NUR ---
PT. IN BED WITH HOB UP FOR COMFORT WITH EYES CLOSED AND RESP. EVEN. CALL LIGHT WITHIN REACH.
[2016-08-25 08:47] VITALS: BP 141/98
--- NOTE | 2016-08-25 13:48 | NUR ---
Nutrition Follow Up: Pt reported that his appetite is good. He is eating 92% meal avg on an AHA diet. Wt loss 1# since admit. +BM 08/22/16. Labs noted - BUN, Cr elevated. Meds noted including Prednisone, Thiamine, Lasix. Pt with good po intake at this time. Rec continue current diet. RD following.
--- NOTE | 2016-08-25 18:38 | NUR ---
RESTING QUIETLY IN BED. CALL LIGHT IN BED
[2016-08-25 18:40] VITALS: BP 118/72
--- NOTE | 2016-08-25 21:00 | NUR ---
PT RESTING IN BED, HS MEDS GIVEN. PT REQ AND REC'D PRN MELATONIN FOR SLEEP. PT DENIES FURTHUR NEEDS AT THIS TIME. BED LOW. CL INR EACH.
--- NOTE | 2016-08-25 22:16 | NUR ---
PT RESTING IN BED, WATCHING TV, DENIES NEEDS. WCTM. BED LOW. CLIN REACH.
--- NOTE | 2016-08-26 00:33 | NUR ---
PT RESTING, EYES CLOSED. BED LOW. CL IN REACH.
--- NOTE | 2016-08-26 02:07 | NUR ---
PT RESTING, EYES CLOSED. RR ARE EVEN AND UNLABORED. WCTM. BED LOW. CL IN REACH.
[2016-08-26 07:02] LABS: BASOPHILS 0.1 % (0.0-2.0); EOSINOPHILS 0.1 % (0-7); HEMATOCRIT 39.9 % (42.0-54.0); HEMOGLOBIN 12.6 g/dL (13.5-17.5); IMMATURE GRANULOCYTES 1.6 % (0-5); LYMPHOCYTES 5.6 % (15-50); MCH 27.8 pg (26.0-34.0); MCHC 31.6 g/dL (31.0-37.0); MCV 88.1 fL (80.0-100.0); MEAN PLATELET VOLUME 10.9 fL (7.4-10.4); MONOCYTES 6.2 % (2-11); NEUTROPHILS 86.4 % (40-80); PLATELET COUNT 219 10x3/uL (130-400); RBC 4.53 10x6/uL (4.20-6.10); WBC 13.6 10x3/uL (4.8-10.8)
[2016-08-26 07:04] LABS: CALCIUM 8.5 mg/dL (8.5-10.1); CARBON DIOXIDE 30.5 mmol/L (21.0-32.0); CREATININE - SERUM 2.9 mg/dL (0.6-1.3); POTASSIUM - SERUM 5.5 mmol/L (3.5-5.1)
--- NOTE | 2016-08-26 08:00 | NUR ---
SHIFT ASSMT COMPLETED.FINISHED BREAKFAST.DENIES NEEDS.
[2016-08-26 08:10] VITALS: BP 120/71
--- NOTE | 2016-08-26 08:44 | RHP ---
PATIENT: HUI FAUST MEDICAL RECORD: [id number] ACCOUNT: [id number] LOCATION:[facility]1118 : [birth year] ADMISSION DATE: 08/21/16 REHABILITATION HISTORY AND PHYSICAL EXAMINATION POST ADMISSION PHYSICIAN EXAMINATION Post Admission Physical Examination and History and Physical DATE OF ADMISSION: 08/21/2016 ADMITTING DIAGNOSES: Acute exacerbation of congestive heart failure, rmxpj-mi-kqslfva systolic dysfunction and acute atrial fibrillation with rapid ventricular response. HISTORY OF PRESENT ILLNESS: The patient was admitted for inpatient rehabilitation for acute exacerbation of congestive heart failure. Also, with acute exacerbation of chronic obstructive pulmonary disease, which is O2 dependent. He is a 71-year-old gentleman who is admitted from the Emergency Room on August 15 for shortness of breath. He reported history of congestive heart failure, chronic obstructive pulmonary disease and uses crack cocaine on August 14. He has had an increasing shortness of breath the past few days prior to this hospital admit. He left his O2 at a friend's house and ran out of his inhalers. He also had some chest pain, but got better during his hospital stay. He has got a chronic cough, lives with friends who apparently a pretty bad influences on him. He is admitting BNP of 122,000. He states he is independent with his ADLs and mobility. He is currently requiring amendable moderate assist with most ADLs and also with mobility, also required using a rolling walker at times. Prior to hospitalizations, he does not use assistive devices for ambulation. He has COPD and is O2 dependent, states he only wears it as needed. He is currently on 2 liters continuously and noted upon ambulation required up to 3 liters to keep his sat up, definitely inpatient rehab will benefit him to get back to his prior level of functioning. COMORBIDITIES: Include acute exacerbation of chronic obstructive pulmonary disease, dyspnea, acute atrial fibrillation with rapid ventricular response, uncontrolled hypertension, history of chronic cocaine use, and chronic gout. History of O2 dependency, history of prostate cancer, hyperlipidemia, pneumonia, history of tobacco and alcohol use and also use of illicit drugs. PAST MEDICAL HISTORY: Significant for hypertension, O2 dependent, chronic obstructive pulmonary disease, prostate cancer, cardiomyopathy, coronary artery disease, hyperlipidemia, pneumonia, and lymphoma. PAST SURGICAL HISTORY: Includes TURP and laparoscopic cholecystectomy. ALLERGIES: No known drug allergies. CURRENT MEDICATIONS: Include he is on a prednisone taper. He is on potassium 20 mEq daily, Protonix 40 mg daily, thiamine 100 mg daily, spironolactone 25 mg daily, sodium bicarbonate 650 mg daily, furosemide 40 mg daily, Folic acid 1 mg daily, Plavix 75 mg daily, Celexa 20 mg daily, 81 mg chewable aspirin daily, Pravachol 20 mg at bedtime, metoprolol 50 mg b.i.d., melatonin 3 mg at bedtime p.r.n., Xopenex 1.25 mg q.4 hours p.r.n., Niferex 1 cap b.i.d., [place] 1 tab q.4 hours p.r.n., Mucinex 2 tabs b.i.d. He is on Advair one inhalation b.i.d. at the 500/50 inhaler. He is on clonidine p.r.n. elevated blood pressures, HISTORY AND PHYSICAL [id number] HUI FAUST Perles 100 mg t.i.d. and amiodarone 200 mg b.i.d. HABITS: He does have a history of alcohol, tobacco and illicit drug use. FAMILY HISTORY: Noncontributory. SOCIAL HISTORY: The patient hopes to return back and continue with his current lifestyle, but hopefully avoid drugs if possible. REVIEW OF SYSTEMS: GENERAL: Does complain of some weakness or fatigue. HEENT: Denies cold, cough, or congestion. CARDIOVASCULAR: He denies any chest pain. LUNGS: ____ some shortness of breath at times. PHYSICAL EXAMINATION: VITAL SIGNS: Stable, afebrile. GENERAL: A thin gentleman in no acute distress, alert upon exam. HEENT: Normocephalic and atraumatic. Mucosa is moist. NECK: Supple. No lymphadenopathy. LUNGS: Clear at this time. HEART: Irregular rate and rhythm. ABDOMEN: Benign. EXTREMITIES: No clubbing, cyanosis or edema. NEUROLOGIC: Intact. LABORATORY DATA: His white count is 10.1, H&H of 12 and 41 and platelet count was noted to be 175. His sodium is 138, potassium 4.2, BUN and creatinine of 69 and 2.7 and blood sugar was noted to be 139. ASSESSMENT: This is a 71-year-old gentleman admitted to the rehab with a working diagnosis of exacerbation of congestive heart failure complicated by illicit drug use and chronic obstructive pulmonary disease. The patient has potential to make improvement. We instituted the following multidisciplinary therapies including to, but not limited to physical, occupational, respiratory, speech, nutritional services, prosthetics and orthotics. Given his complex condition and risk for more complications, rehabilitation services cannot be provided at a low level of care such as a fpc facility. PLAN: 1. Admit to [facility] rehab for intensive inpatient therapy to include the following disciplines: A. Physical therapy to improve gait, all transfer skills and bed mobility to a modified independent level. B. Occupational therapy to improve activities of daily living to a modified independent level. C. Case management to assist with discharge planning and placement options. D. Nutrition to assist with nutritional needs. E. Rehabilitation nursing to assist in monitoring the patient's underlying medical conditions and to assist with any type of bowel or bladder management. 3. The patient's current medication and medical care will be continued. 4. The patient will be placed on standard fall precautions. 5. The patient's estimated length of stay is approximately 7-10 days. 6. We will discuss this patient during care team staff meeting this week. HISTORY AND PHYSICAL [id number] HUI FAUST TRANSINT:[id number] Voice Confirmation ID: [id number] DOCUMENT ID: [id number] DIMAS ZEPEDA MD at 0844 CC: [id number] DICTATION DATE: 08/22/16 1014 SOFTWARE SYSTEMS ANALYST: 08/22/16 1412 ADM IN [facility] [address] [place] [address]
--- NOTE | 2016-08-26 12:00 | NUR ---
RESTING QUIETLY.LUNCH GIVEN.
--- NOTE | 2016-08-26 16:00 | NUR ---
SITTING UP IN CHAIR.DENIES NEEDS.
--- NOTE | 2016-08-26 16:50 | NUR ---
CARE TEAM MEETING: PATIENT TENATIVE DISCHARGE DATE IS 08/28/16. WILL CONTINUE TO FOLLOW WITH PATIENT UNTIL DISCHARGED.
[2016-08-26 19:10] VITALS: BP 98/65
--- NOTE | 2016-08-26 19:10 | NUR ---
IN BED, AWAKE. NO COMPLAINTS AT THIS TIME.
--- NOTE | 2016-08-26 19:31 | NUR ---
PT RESTING IN A RECLINER CHAIR IN HIS ROOM WATCHING TV. PT STATED: " I JUST HAD A GOOD SHOWER, AND NOW IM KICKING BACK FOR THE NIGHT. SR'S ARE UP X 2 IN BED. CALL LIGHT AND BEDSIDE TABLE ARE WITHIN EASY REACH.
--- NOTE | 2016-08-26 21:36 | NUR ---
RESTING QUIETLY IN BED WITH EYES CLOSED. RESPS ARE EVEN AND UNLABORED. NO ACUTE DISTRESS NOTED.
--- NOTE | 2016-08-27 | NUR ---
RESTING QUIETLY IN BED WITH EYES CLOSED. RESPS ARE EVEN AND UNLABORED. NO ACUTE DSITRESS NOTED.
--- NOTE | 2016-08-27 03:01 | NUR ---
RESTING IN BED STARTING A UPDRAFT TX AT THIS TIME.
--- NOTE | 2016-08-27 05:21 | NUR ---
RESTING IN BED WITH EYES CLOSED.
[2016-08-27 05:37] LABS: ANION GAP 13.1 mmol/L (8-16); CALCIUM 8.5 mg/dL (8.5-10.1); CREATININE - SERUM 3.2 mg/dL (0.6-1.3); POTASSIUM - SERUM 5.1 mmol/L (3.5-5.1)
--- NOTE | 2016-08-27 08:00 | NUR ---
SHIFT ASSMT COMPLETED.STATED RESTED GOOD THROUGH NIGHT.LOOKING FORWARD TO NE HOME TOMARROW.CL IN REACH.DENIES NEEDS.
[2016-08-27 09:44] VITALS: BP 108/61
--- NOTE | 2016-08-27 12:00 | NUR ---
EATING LUNCH.CL IN REACH.
--- NOTE | 2016-08-27 15:44 | NUR ---
PATIENT IS DISCHARGING HOME WITH FRIENDS ON 08/28/16, HE DECLINES HOME HEALTH. HE HAS O2, NEBULIZER AND WALKER AT HOME.APPOINTMENT: DR. AMI ARBOLEDA AND GIVEN [facility] NUMBER TO PATIENT TO GET ESTABLISHED WITH A PCP ( [address] [place] [address], ). ATTEMPTED TO ASSIT PATIENT WITH HELP OF HIS ILICIT DRUG USE, HE TOLD ME THAT HE ONLY USES CRACK COCAINE VERY SELDOM AND HE FEELS HE HAS NO PROBLEM. HE WOULD NOT ACCEPT ANY INFORMATION REGARDING ANY ASSISTANCE. WILL CONTINUE TO FOLLOW WITH PATIENT UNTIL DISCHARGED
--- NOTE | 2016-08-27 15:55 | NUR ---
[facility] FORM SIGNED, EXPLAINED AND FILED IN CHART. PATIENT CHOICE FORM FOR HOME HEALTH SIGNED AND WRITTEN THAT PATIENT HAS DECLINED HOME HEALTH.
--- NOTE | 2016-08-27 16:00 | NUR ---
RESTING QUIETLY.CL IN REACH.DENIES NEEDS.
[2016-08-27 18:45] VITALS: BP 113/45
--- NOTE | 2016-08-27 19:56 | NUR ---
PT IS RESTING QUIETLY IN BED WITH EYES OPEN. ALERT AND ORIENTED X 3. DENIES DISCOMFORT AT THIS TIME. VSS. PT STATES HE IS LOOKING FORWARD TO DC HOME TOMORROW. SR'S ARE UP X 2 IN BED. CALL LIGHT AND BEDSIDE TABLE ARE WITHIN EASY REACH.
--- NOTE | 2016-08-27 22:09 | NUR ---
PT RESTING IN BED WITH EYES OPEN. STATES: "I WOKE UP WHEN SOMEONE YELLED FOR HELP." (VOICE COMING FROM LONG TERM.)
--- NOTE | 2016-08-28 00:07 | NUR ---
RESTING IN BED WITH EYES CLOSED.
--- NOTE | 2016-08-28 02:15 | NUR ---
PATIENT IN BED, AWAKE. DENIES NEEDS.
--- NOTE | 2016-08-28 06:12 | NUR ---
PT RESTING IN BED WATCHING TV. DENIES ANY NEEDS. TOLERATED AM MED WITHOUT DIFFICULTY.
--- NOTE | 2016-08-28 07:50 | NUR ---
ALERT AND RESTING IN BED WITH SIDERAILS UPX2. CALLIGHT IN REACH. NO NEEDS VOICED.
[2016-08-28 08:33] VITALS: BP 124/78
--- NOTE | 2016-08-28 09:34 | NUR ---
DISCHARGE INSTRUCTIONS GIVEN AND EXPLAINED TO PT.
--- NOTE | 2016-08-28 11:00 | NUR ---
D/C HOME VIA WHEELCHAIR. CONDITION STABE.
--- NOTE | 2016-10-07 12:28 | DS ---
PATIENT:HUI FAUST :49 MEDICAL RECORD: [id number] DISCHARGE SUMMARY ADMISSION DATE: 08/21/16 DISCHARGE DATE: 08/28/16 This is a discharge dated 08/28/2016 from inpatient rehab. PRIMARY DIAGNOSES: Decreased functional ability, inability to provide activities of daily living secondary to acute exacerbation of congestive heart failure. SECONDARY DIAGNOSES: 1. Atrial fibrillation with rapid ventricular response. 2. Nxilf-qd-xszxcfk systolic congestive heart failure. 3. Multi-substance abuse including cocaine, alcohol and tobacco. 4. Pneumonia. 5. Hypertension. 6. Acute exacerbation of chronic obstructive pulmonary disease. 7. Hyperlipidemia. 8. Hypokalemia. 9. Gout. 10. Chronic hypoxic respiratory failure. 11. Acute shortness of breath. 12. Non-Q-wave myocardial infarction. 13. Acute renal failure. HOSPITAL COURSE: Full H&P is located elsewhere on the chart on this 71-year-old male who was admitted to inpatient rehab for physical therapy and occupational therapy to improve gait, transfer skills, bed mobility, and activities of daily living to a modified independent level. He was evaluated by PT and OT and their plans of care were followed. He required mcfp care for observation and assessment and medication administration. He was on nebulized medications for respiratory support, remained on Advair, home inhalers. He was on a tapering dose of prednisone and supplemental oxygen. He was cooperative with therapies, progressing towards goals. Case management was involved for discharge planning. He was considered stable for discharge on ____. DISCHARGE MEDICATIONS: As per discharge medication reconciliation. DISCHARGE DISPOSITION: The patient is discharged home. He will continue his current diet and level of activity and will have home health for continued PT and OT. He will follow up with primary care and specialists as directed. TRANSINT:[id number] Voice Confirmation ID: [id number] DOCUMENT ID: [id number] Dictated By: DENIA HOLDEN I have interviewed/examined the above patient and agree with these documented findings. DISCHARGE SUMMARY REPORT [id number] HUI FAUST SCOTT MD at 1228 at 1231 CC: [id number] DICTATION DATE: 10/03/16 1354 SENIOR INTERNATIONAL TAX MANAGER: 10/04/16 0304 DIS IN 08/28/16 [facility] [address] [place] [address]
== END 2016-08-28 11:00 | disposition home or self-care (01) | DRG 291 ==
LOC: D.REHAB 11:36
PROVIDERS: ADMIT Emergency Medicine
DX: I50.23 Acute on chronic systolic (congestive) heart failure (principal); J18.9 Pneumonia, unspecified organism; J44.1 Chronic obstructive pulmonary disease with (acute) exacerbation; I42.9 Cardiomyopathy, unspecified; I48.91 Unspecified atrial fibrillation; R06.00 Dyspnea, unspecified; I10 Essential (primary) hypertension; M1A.9XX0 Chronic gout, unspecified, without tophus (tophi); Z85.46 Personal history of malignant neoplasm of prostate; E78.5 Hyperlipidemia, unspecified; Z87.891 Personal history of nicotine dependence; Z99.81 Dependence on supplemental oxygen; F14.10 Cocaine abuse, uncomplicated; I25.10 Atherosclerotic heart disease of native coronary artery without angina pectoris

== ENCOUNTER 2016-09-02 16:14 | Inpatient (IN) | payer MEDICARE ==
[~2016-09-02] VITALS: Ht 167.6 cm; Wt 85.5 kg
[2016-09-02 17:24] LABS: BASOPHILS 0.1 % (0.0-2.0); EOSINOPHILS 0.1 % (0-7); HEMATOCRIT 39.1 % (42.0-54.0); HEMOGLOBIN 12.7 g/dL (13.5-17.5); IMMATURE GRANULOCYTES 0.3 % (0-5); LYMPHOCYTES 2.9 % (15-50); MCH 28.6 pg (26.0-34.0); MCHC 32.5 g/dL (31.0-37.0); MCV 88.1 fL (80.0-100.0); MEAN PLATELET VOLUME 10.2 fL (7.4-10.4); MONOCYTES 6.3 % (2-11); NEUTROPHILS 90.3 % (40-80); RBC 4.44 10x6/uL (4.20-6.10); RDW 16.1 % (11.5-14.5); WBC 17.8 10x3/uL (4.8-10.8)
[2016-09-02 17:27] LABS: PLATELET COUNT 104 10x3/uL (130-400)
[2016-09-02 17:58] LABS: ALBUMIN 2.8 g/dL (3.4-5.0); ANION GAP 13.3 mmol/L (8-16); CALCIUM 8.4 mg/dL (8.5-10.1); CARBON DIOXIDE 22.5 mmol/L (21.0-32.0); CREATININE - SERUM 2.4 mg/dL (0.6-1.3); POTASSIUM - SERUM 3.8 mmol/L (3.5-5.1); PROTEIN - SERUM 6.5 g/dL (6.4-8.2)
[2016-09-02 18:38] LABS: CKMB 1.2 U/L (0.0-3.6); CREATINE KINASE 35 UL (21-232); TROPONIN-I 0.042 ng/mL (0.000-0.060)
--- NOTE | 2016-09-02 20:22 | NUR ---
RECEIVED FROM ER, PT VITALS, BP-108/53, T-99, R-20, P-59, -2L, BEING ADMITTED WITH COPD EXACERBATION, IV-RFA-SL, DENIES ANY NEEDS, CALL LIGHT IN REACH, BED IS LOW, WILL CONTINUE TO MONITOR
[2016-09-03 01:11] VITALS: BP 124/81
[2016-09-03 04:36] VITALS: BP 108/64
--- NOTE | 2016-09-03 05:14 | NUR ---
SLEEPING, BED IS LOW, SRX2, CALL LIGHT IN REACH
[2016-09-03 08:00] VITALS: BP 104/69
--- NOTE | 2016-09-03 10:11 | NUR ---
RESP UL ON O2 2L NC. IV PATENT. CALL LIGHT IN REACH. WILL MONITOR NEEDS.
--- NOTE | 2016-09-03 11:21 | NUR ---
REC'D REPORT FROM GONZALES CERVANTES. ASSUMED CARE FOR THIS PT. INTRODUCED MYSELF TO PT, PT DENIES ANY CURRENT NEEDS. WILL CPOC.
[2016-09-03 12:00] VITALS: BP 124/75
[2016-09-03 12:39] VITALS: Ht 167.6 cm; Wt 85.5 kg
--- NOTE | 2016-09-03 13:21 | CN ---
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 Most recent visit was positive for methamphetamine at that time. Intermittently homeless and intermittently noncompliant. He is a poor historian s per usual. Reports feeling bad and having difficulty following his medications. Reports generalized malaise, fatigue, dyspnea, shortness of breath. We are asked to see him concerning his cardiovascular status. PAST MEDICAL HISTORY: 1. History of hypertension. 2. Illicit drug abuse. 3. Alcohol abuse. 4. Cardiomyopathy. 5. Cardiac arrhythmias including PAF. 6. Dyslipidemia. 7. Chronic pain. 7. Chronic renal insufficiency. ALLERGIES: None known. MEDICATIONS: By report, but unclear if taking regularly Lasix 40 mg p.o. daily, [place] 10/325 q.4 p.r.n., Celexa 20 daily, aspirin 81 daily, Aldactone 25 daily, Pravachol 20 daily, metoprolol 50 b.i.d., Cordarone 200 b.i.d., Plavix 75 daily. SOCIAL HISTORY: Intermittently homeless by previous history, lives with friends, smokes, history of alcohol abuse with illicit drug abuse. REVIEW OF SYSTEMS: The patient reports easy bruising but reports no swollen glands. The patient reports no fever, no night sweats, no significant weight gain, no significant weight loss. No significant exercise tolerance. The patient reports no dry eyes, no irritation, no vision change. Patient reports no difficulty hearing and no ear pain. Patient reports no frequent nose bleeds or nose and sinus problems. Patient reports on arm pain on exertion. No shortness of breath while lying down. No history of heart murmur. Patient reports no cough, no wheezing or coughing up blood. Patient reports no abdominal pain, no vomiting. Normal appetite. No diarrhea and not vomiting blood. No nausea and no constipation. Patient reports no incontinence. No difficulty urinating. No hematuria. No increased frequency. Patient reports no muscle aches. No weakness, no arthralgias, no back pain. No swelling of the extremities. Patient reports no abnormal mole, no jaundice, no rashes. Reports no loss of consciousness. No weakness and no numbness. No seizures, dizziness, or headaches. The patient reports no depression, no sleep disturbance, feeling safe in a relationship and no alcohol abuse. Patient reports on fatigue. Reports no runny nose or sinus pressure. No itching, no hives, and no frequent sneezing. PHYSICAL EXAMINATION: CONSULT REPORT [id number] HUI FAUST GENERAL: Elderly gentleman, unkempt, in no acute distress. VITAL SIGNS: Blood pressure 108/64, pulse 72 and regular. HEENT: Normocephalic, atraumatic. NECK: No JVD or bruits. HEART: Regular. Currently, there is a II/ systolic ejection murmur. Question S3 gallop. LUNGS: Decreased air excursion with expiratory wheezes. ABDOMEN: Soft, nontender. EXTREMITIES: Pulses are decreased 1+, with no edema. IMPRESSION: Volume overload, multifactorial. Restart home medications. Further recommendations based on clinical course. TRANSINT:[id number] Voice Confirmation ID: [id number] DOCUMENT ID: [id number] SERA BERTRAND MD at 1321 CC: [id number] DICTATION DATE: 09/03/16826 METEOROLOGICAL OBSERVER: 09/03/16919 ADM IN [facility] [address] [id number]
[2016-09-03 16:00] VITALS: BP 147/86
--- NOTE | 2016-09-03 17:06 | NUR ---
Patient Name: HUI FAUST Admission Status: ER Accout number: [id number] Admission Date: 09-02-2016 : 1945 Admission Diagnosis: Attending: NERY Current LOS: 1 Anticipated DC Date: Planned Disposition: Home Primary Insurance: MEDICARE A & B Discharge Planning Comments: * Is the patient Alert and Oriented? Yes 0 * How many steps to enter\exit or inside your home? 3 0 * PCP NO PRIMARY DOCTOR PT HAS NOT FOLLOWED UP WITH [facility] REFERRAL INFORMATION REFERRED ON 05-08-16 / 08-20-16 0 * Pharmacy [facility] [place] 0 * Preadmission Environment Home with Family 0 * ADLs Independent 0 * Equipment Cane Oxygen Walker 0 * Other Equipment OXYGEN AT NIGHT ONLY [facility] - MEDICAL EQUIPMENT PROVIDER 0 * List name and contact numbers for known caregivers / representatives who currently or will assist patient after discharge: NATY FAUST, MOTHER, (LIVES AT [facility]) 0 * Community resources currently utilized None 0 * Please name any agencies selected above. NONE 0 * Additional services required to return to the preadmission environment? No 0 * Can the patient safely return to the preadmission environment? Yes 0 * Has this patient been hospitalized within the prior 30 days at any hospital? Yes 0 CM MET WITH PT IN ROOM TO DISCUSS DISCHARGE PLANNING AND NEEDS. PT REPORTS LIVING AT HOME INDEPENDENTLY WITH FRIENDS. PT HAS NIGHTTIME OXYGEN FROM [facility], A WALKER AND A CANE. PT HAS NO OUTSIDE SERVICES ASSISTING IN THE HOME. PT HAS NOT FOLLOWED UP, NOT EVEN WITH A PHONE CALL, TO [facility] CLINIC TO TRY TO ESTABLISH WITH PRIMARY CARE. CM DISCUSSED AVAILABILITY OF HOME HEALTH, REHAB SERVICES AND MEDICAL EQUIPMENT. PT DENIES DISCHARGE NEEDS, REPORTS A FRIEND WILL PICK HIM UP FOR DISCHARGE HOME. PT DISCHARGING HOME WITH FRIENDS, DENIES NEEDS. CM TO FOLLOW AND ASSIST NEEDED. Cabinet Mounter: Miguel Calderon
--- NOTE | 2016-09-03 20:00 | NUR ---
PT RESTING IN BED. ALERT/ORIENTED. O2 @ 2L/NC . NS @ KVO TO LEFT A/C. INSTRUCTED ON NEEDING TO MEASURE ALL URINE. SEE ASSESSMENT. CPOC.
[2016-09-03 20:39] VITALS: BP 119/79
--- NOTE | 2016-09-03 23:19 | NUR ---
RESTING IN BED. PAGED AND SPOKE WITH DR JHONSTON TO OBTAIN ORDER FOR NORCO FOR CHRONIC PAIN ISSUES. ORDER RECIEVED AND PT WAS MEDICATED WITH NORCO 5/325MG X 1 FOR PAIN. CPOC.
[2016-09-04 00:47] VITALS: BP 134/32
[2016-09-04 04:56] VITALS: BP 138/47
[2016-09-04 05:41] LABS: BASOPHILS 0 % (0.0-2.0); EOSINOPHILS 0 % (0-7); HEMATOCRIT 34.8 % (42.0-54.0); HEMOGLOBIN 11.1 g/dL (13.5-17.5); IMMATURE GRANULOCYTES 0.4 % (0-5); LYMPHOCYTES 1.3 % (15-50); MCH 28.2 pg (26.0-34.0); MCHC 31.9 g/dL (31.0-37.0); MCV 88.3 fL (80.0-100.0); MONOCYTES 1.9 % (2-11); NEUTROPHILS 96.4 % (40-80); PLATELET COUNT 118 10x3/uL (130-400); RBC 3.94 10x6/uL (4.20-6.10); RDW 15.7 % (11.5-14.5)
[2016-09-04 05:46] LABS: WBC 11.8 10x3/uL (4.8-10.8)
[2016-09-04 06:03] LABS: ALBUMIN 2.2 g/dL (3.4-5.0); ANION GAP 14.9 mmol/L (8-16); BILIRUBIN - TOTAL 0.26 mg/dL (0.2-1.3); CALCIUM 8.5 mg/dL (8.5-10.1); CARBON DIOXIDE 20.2 mmol/L (21.0-32.0); CREATININE - SERUM 2.6 mg/dL (0.6-1.3); MAGNESIUM - SERUM 1.9 mg/dL (1.8-2.4); PHOSPHOROUS 3.1 mg/dL (2.5-4.9); POTASSIUM - SERUM 4.1 mmol/L (3.5-5.1); PROTEIN - SERUM 6.7 g/dL (6.4-8.2)
[2016-09-04 08:26] VITALS: BP 132/66
--- NOTE | 2016-09-04 11:21 | NUR ---
PT RESTING QUIETLY IN BED DENIES ANY CURRENT NEEDS. CL IN REACH. WILL CPOC.
[2016-09-04 12:10] VITALS: BP 144/79
--- NOTE | 2016-09-04 12:40 | CN ---
PATIENT NAME:HUI GIRON MEDICAL RECORD: [id number] : 49 LOCATION:. D.2138 ADMIT DATE: 09/02/16 ACCOUNT: [id number] CONSULTING PHYSICIAN: STORMY MEADE MD REFERRING PHYSICIAN: ROBIN WU DO DATE OF CONSULTATION: 09/03/2016 CONSULT REQUESTING PHYSICIAN: Robin Wu DO REASON FOR CONSULTATION: Acute exacerbation of chronic obstructive pulmonary disease, pulmonary edema, cough, and wheezing. HISTORY OF PRESENT ILLNESS: Mr. Giron is a 71-year-old gentleman, very well known to our service. The patient was recently hospitalized in first week of July. The patient was discharged to the skilled nursing and for the last 4-5 days, he is coughing, wheezing, fever, shortness of breath. The patient came into the ER. The patient has increased pulmonary edema as well as admitted for COPD exacerbation. REVIEW OF SYSTEMS: GENERAL: The patient has generalized weakness. HEENT: There is sinus congestion. RESPIRATORY: As in history of present illness. CARDIOVASCULAR: Negative. GASTROINTESTINAL: Negative. GENITOURINARY: He has a chronic kidney disease. Other review of the systems is negative. PAST MEDICAL HISTORY: 1. COPD. 2. Congestive heart failure. 3. Chronic kidney disease. 4. Hypertension. 5. Hyperlipidemia. 6. Chronic hypoxic respiratory failure. 7. History of recurrent pneumonia. 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 9. Lymphoma. PAST SURGICAL HISTORY: He is status post chemotherapy and radiation therapy. ALLERGIES: There are no known drug allergies. PRESENT MEDICATIONS: [employer] was reviewed. PERSONAL AND SOCIAL HISTORY: The patient is an ex-smoker. He is a nondrinker. FAMILY HISTORY: Significant for cancer and cardiovascular diseases. PHYSICAL EXAMINATION: GENERAL: Now, the patient is lying comfortably in bed. He is not in any acute distress. VITAL SIGNS: The blood pressure is 124/75, pulse is 59, respirations 22, temperature 98.1, and SPO2 is 94% on 2 liter nasal cannula. HEENT: Conjunctivae are pink. Sclerae nonicteric. CONSULT REPORT [id number] HUI GIRON NECK: Neck is supple. No JVD. CHEST: The chest excursion is minimal on both sides. There is prolonged expiration with wheezing. HEART: Rhythm regular, normal sound, no murmur. ABDOMEN: Abdomen is soft. Bowel sounds present. No hepatosplenomegaly. RECTAL: Deferred. EXTREMITIES: No cyanosis, no clubbing, no pedal edema. SKIN: The skin is warm, normal turgor. CENTRAL NERVOUS SYSTEM: The patient is awake and alert. There are no obvious cranial nerve abnormality. The gait was not tested. IMAGING: Chest radiograph, there are bilateral increased interstitial marking. There is infiltrate, right lower lobe. LABORATORY DATA: CBC: The WBC is 17.9, hemoglobin 12.7, hematocrit 39.1, and the platelet count 304. Chemistry: Sodium 137, potassium 3.8, BUN is 37, and creatinine 2.4. IMPRESSION: 1. Acute exacerbation of chronic obstructive pulmonary disease. 2. Pneumonia, right lower lobe, most likely hospital-acquired pneumonia with recent hospitalization. 3. Congestive heart failure with chronic systolic dysfunction. 4. Leukocytosis secondary to pneumonia. 5. Pulmonary edema. 6. Chronic kidney disease. 7. Ex-smoker. RECOMMENDATION: 1. I will discontinue the Rocephin and start him on cefepime and Levaquin to cover for hospital-acquired pneumonia for Gram-negative rods. 2. Lasix 40 mg b.i.d. 3. Methylprednisolone IV. 4. Xopenex and ipratropium nebulizers. Start on Brovana and budesonide nebulizer. Start him on Singulair 10 mg a day and supplemental oxygen. 5. Follow up labs and chest radiograph in the morning. Dr. Wu, once again, thank you for involving me in the care of Mr. Giron. TRANSINT:[id number] Voice Confirmation ID: [id number] DOCUMENT ID: [id number] STORMY MEADE MD at 1240 CC: ROBIN WU DO [id number] DICTATION DATE: 09/03/16 1638 MARGIN ANALYST: 09/03/16 1931 ADM IN [facility] [address] [place] [address]
[2016-09-04 16:25] VITALS: BP 136/79
--- NOTE | 2016-09-04 17:41 | NUR ---
PT C/O PAIN ALL OVER, REQUESTED AND PROVIDED WITH PRN PAIN MEDICATION. PT IS RESTING QUIETLY IN BED WATCHING TV. PROVIDED PT WITH FRESH ICED COKE. CL IN REACH, NO FURTHER NEEDS AT THIS TIME. WILL CTM.
--- NOTE | 2016-09-04 20:00 | NUR ---
RESTING IN BED WITH NO DISTRESS. O2 @ 2L/NC. VOIDS TO URINAL . IV TO LFA WITH NS @ KVO FOR ABT. DENIES PAIN OR DISCOMFORT. ENCOURAGED HIM TO LET NURSE KNOW IF HE NEEDED ANYTHING. CPOC.
[2016-09-04 20:06] VITALS: BP 121/72
--- NOTE | 2016-09-04 22:27 | NUR ---
HS MEDS GIVEN. IVF INFUSING. NO DISTRESS. CPOC.
[2016-09-05 00:01] VITALS: BP 148/86
[2016-09-05 05:01] VITALS: BP 167/97
[2016-09-05 05:33] LABS: BASOPHILS 0 % (0.0-2.0); EOSINOPHILS 0 % (0-7); HEMATOCRIT 33.1 % (42.0-54.0); HEMOGLOBIN 10.5 g/dL (13.5-17.5); IMMATURE GRANULOCYTES 0.4 % (0-5); LYMPHOCYTES 1.2 % (15-50); MCH 27.9 pg (26.0-34.0); MCHC 31.7 g/dL (31.0-37.0); MCV 87.8 fL (80.0-100.0); MEAN PLATELET VOLUME 10.6 fL (7.4-10.4); MONOCYTES 2.2 % (2-11); NEUTROPHILS 96.2 % (40-80); PLATELET COUNT 137 10x3/uL (130-400); RBC 3.77 10x6/uL (4.20-6.10); RDW 15.6 % (11.5-14.5)
[2016-09-05 05:54] LABS: ALBUMIN 2.2 g/dL (3.4-5.0); ANION GAP 15.4 mmol/L (8-16); BILIRUBIN - TOTAL 0.3 mg/dL (0.2-1.3); CALCIUM 8.5 mg/dL (8.5-10.1); CARBON DIOXIDE 19.6 mmol/L (21.0-32.0); CREATININE - SERUM 2.5 mg/dL (0.6-1.3); PROTEIN - SERUM 6.7 g/dL (6.4-8.2)
[2016-09-05 07:20] VITALS: BP 130/80
--- NOTE | 2016-09-05 07:50 | NUR ---
0725-AM ROUNDING MADE WITH PATIENT DENIING NEEDS. PATIENT HAS A BODY ODOR, WILL TRY AND SEE IF PATIENT WILL BATHE TODAY. ON 2L PER NC, LEFT AC SEEN WITH NS INFUSING AT 5 CC/HR. WILL CONTINUE TO MONITOR.
[2016-09-05 11:13] VITALS: BP 130/80
--- NOTE | 2016-09-05 13:26 | NUR ---
RESTING ON RIGHT SIDE WITH EYES CLOSED, RESP APPEARS EVEN AND NON LABORED. WILL CONTINUE TO MONITOR.
[2016-09-05 15:12] VITALS: BP 149/80
--- NOTE | 2016-09-05 18:21 | NUR ---
RESTING ON RIGHT SIDE, DENIES NEEDS AT PRESENT TIME. WILL CONTINUE TO MONITOR. USING HIS URINAL TO VOID.
--- NOTE | 2016-09-05 20:33 | NUR ---
PT RESTING IN BED WITH NO DISTRESS. IVF NS @ KVO INFUSING TO LEFT A/C. USES URINAL TO VOID. O2 @ 2L/NC WITH NONLABORED RESPIRATIONS. REVIEWED PLAN OF CARE. SEE SHIFT ASSESSMENT.
[2016-09-05 20:51] VITALS: BP 157/85
--- NOTE | 2016-09-05 21:08 | NUR ---
HS MEDS GIVEN. [place] FOR CHRONIC BACK PAIN. WILL MONITOR.
--- NOTE | 2016-09-05 23:15 | NUR ---
PT RESTING IN BED WITH EYES CLOSED. NO DISTRESS. IVF INFUSING. CPOC.
[2016-09-06 00:30] VITALS: BP 130/86
--- NOTE | 2016-09-06 01:26 | NUR ---
AFTER ABT COMPLETED, SALINE LOCKED PIV DUE TO FREQUENT ALARMING FROM PT CURLING UP HIS ARM AND IV THINKING IT IS OCCLUDED. WILL MONITOR.
[2016-09-06 04:30] VITALS: BP 154/92
[2016-09-06 05:42] LABS: BASOPHILS 0 % (0.0-2.0); EOSINOPHILS 0 % (0-7); HEMOGLOBIN 10.9 g/dL (13.5-17.5); IMMATURE GRANULOCYTES 0.4 % (0-5); LYMPHOCYTES 2.1 % (15-50); MCH 27.6 pg (26.0-34.0); MCHC 32.1 g/dL (31.0-37.0); MCV 86.1 fL (80.0-100.0); MEAN PLATELET VOLUME 10.5 fL (7.4-10.4); MONOCYTES 2.5 % (2-11); PLATELET COUNT 152 10x3/uL (130-400); RBC 3.95 10x6/uL (4.20-6.10); RDW 15.6 % (11.5-14.5)
[2016-09-06 05:43] LABS: WBC 9.7 10x3/uL (4.8-10.8)
[2016-09-06 06:10] LABS: ANION GAP 17.2 mmol/L (8-16); CALCIUM 8.9 mg/dL (8.5-10.1); CARBON DIOXIDE 21.7 mmol/L (21.0-32.0); CREATININE - SERUM 2.6 mg/dL (0.6-1.3); MAGNESIUM - SERUM 1.8 mg/dL (1.8-2.4); PHOSPHOROUS 3.9 mg/dL (2.5-4.9); POTASSIUM - SERUM 3.9 mmol/L (3.5-5.1)
--- NOTE | 2016-09-06 07:31 | NUR ---
AROUSES EASILY, URINAL EMTIED WITH CLEAR LIGHT YELLOW URINE. O2 AT 2L PER NC. SALIINE LOCK SEEN TO LEFT AC. ON EP, LABS ARE WNL. WILL CONTINUE TO MONITOR.
[2016-09-06 08:28] VITALS: BP 135/96
[2016-09-06 12:42] VITALS: BP 144/76
[2016-09-06 16:03] VITALS: BP 136/84
--- NOTE | 2016-09-06 18:14 | NUR ---
RESTING ON LEFT SIDE, DENIES ANY NEEDS AT PRESENT TIME. REQUESTED COLA, GIVEN. WILL CONTINUE TO MONITOR.
[2016-09-06 20:51] VITALS: BP 160/90
--- NOTE | 2016-09-06 20:58 | NUR ---
PT RECEIVED LYING IN BED AAO X4. ASSESSMENT COMPLETED. IV NOTED TO LEFT FOREARM INFUSING NS @ 10 CC/HR. PT VOIDED 150 CC INTO URINAL. ADMINISTERED PM MEDS. PT REQUESTS YAMILE MONTANO. DENIES OTHER NEEDS AT THIS TIME. BED LOW. PHONE AND CALL LIGHT IN REACH. SIDE RAILS UP X2.
--- NOTE | 2016-09-06 23:27 | NUR ---
PT LYING IN BED RESTING QUIETLY WITH EYES CLOSED. AROUSED EASILY. ADMINISTERED LASIX IVP. DENIES NEEDS AT THIS TIME.
[2016-09-07 00:30] VITALS: BP 153/102
--- NOTE | 2016-09-07 01:39 | NUR ---
PT BP 153/102 AFTER RETURNING FROM USING THE RESTROOM. PT STATES HE FEELS OKAY. STATES HE HAS A SMALL HEADACHE. WILL CONTINUE TO MONITOR.
--- NOTE | 2016-09-07 02:31 | NUR ---
PT BP 155/106. ADMINISTERED CLONIDINE 0.1 MG PO PER ORDERS. PT STATES HE FEELS FINE EXCEPT FOR A SMALL HEADACHE RATING PAIN 7/10. DENIES NEEDS AT THIS TIME.
--- NOTE | 2016-09-07 02:46 | NUR ---
PT VOIDED 385 CC IN URINAL. DENIES NEEDS AT THIS TIME. BED LOW. PHONE AND CALL LIGHT IN REACH. SIDE RAILS UP X2.
--- NOTE | 2016-09-07 03:38 | NUR ---
PT RESTING QUIETLY WITH EYES CLOSED. RESPIRATIONS EVEN, NON-LABORED. NO ACUTE DISTRESS NOTED AT THIS TIME.
--- NOTE | 2016-09-07 04:59 | NUR ---
PT BP 137/93. NO NEEDS NOTED AT THIS TIME.
[2016-09-07 05:33] LABS: BASOPHILS 0 % (0.0-2.0); EOSINOPHILS 0 % (0-7); HEMATOCRIT 36.2 % (42.0-54.0); HEMOGLOBIN 11.6 g/dL (13.5-17.5); IMMATURE GRANULOCYTES 0.6 % (0-5); LYMPHOCYTES 2.6 % (15-50); MCH 27.6 pg (26.0-34.0); MEAN PLATELET VOLUME 10.4 fL (7.4-10.4); MONOCYTES 8.6 % (2-11); NEUTROPHILS 88.2 % (40-80); PLATELET COUNT 172 10x3/uL (130-400); RBC 4.21 10x6/uL (4.20-6.10); RDW 15.6 % (11.5-14.5)
[2016-09-07 05:36] LABS: WBC 6.9 10x3/uL (4.8-10.8)
[2016-09-07 05:56] LABS: ANION GAP 15.1 mmol/L (8-16); CALCIUM 8.6 mg/dL (8.5-10.1); CARBON DIOXIDE 24.7 mmol/L (21.0-32.0); CREATININE - SERUM 2.6 mg/dL (0.6-1.3); POTASSIUM - SERUM 3.8 mmol/L (3.5-5.1)
--- NOTE | 2016-09-07 06:45 | NUR ---
PT LYING IN BED WITH EYES CLOSED. AROUSED EASILY. ADMINISTERED SOLU-MEDROL IVP. FLUSHED. PT DENIES NEEDS AT THIS TIME. BED LOW. PHONE AND CALL LIGHT IN REACH. SIDE RAILS UP X2.
--- NOTE | 2016-09-07 07:30 | NUR ---
ASSESSMENT DONE. PT A/O. LAYING IN BED WATCHING TV. STATES SOB IS IMPROVING. DENIES NEEDS OR WANTS AT THIS TIME. CALL LIGHT WITH IN REACH. WILL CONT. TO MAI.
[2016-09-07 08:03] VITALS: BP 129/86
--- NOTE | 2016-09-07 09:53 | NUR ---
RESP UL ON . IV PATENT. CALL LIGHT IN REACH. WILL CONT. PLAN OF CARE.
[2016-09-07 12:19] VITALS: BP 126/53
--- NOTE | 2016-09-07 13:50 | NUR ---
Nutrition follow-up: Diet: Renal PO Intake 100% of meals Labs reviewed +BM Wt: 172# PO intake is good at this time RDN following.
--- NOTE | 2016-09-07 15:18 | NUR ---
PT LAYING IN BED WATCHING TV. A/O. DENIES NEEDS OR WANTS. NO DISTRESS NOTED. CALL LIGHT WITH IN REACH. WILL CONT. TO MONITOR.
[2016-09-07 16:12] VITALS: BP 113/44
--- NOTE | 2016-09-07 16:26 | NUR ---
PT'S IV PULLED OUT. NURSE RE-SITED TO LEFT FOREARM WITH 20G X1 ATTEMPT. PT TOLERATED WELL. ANTIBIOTIC NOW INFUSING.
--- NOTE | 2016-09-07 17:46 | NUR ---
PT LAYING ON SIDE IN BED SLEEPING. EYES CLOSED. RESP EVEN AND UNLABORED. NO DISTRESS NOTED. CALL LIGHT WITH IN REACH. WILL CONT. TO MONITOR.
--- NOTE | 2016-09-07 19:30 | NUR ---
ASSESSMENT COMPLETE, DENIES NEEDS AT THIS TIME. HOB UP SR UP X2, C/L IN REACH. RESP UNLAB WITH O2 @2L NC IN USE. LEFT FA SL INTACT WITH NO R/S NOTED AT SITE. UP AD JEFFREY. USES URINAL W/O DIFF. REFUSING TO WEAR SCDS. CONTINUE TO MONITOR.
[2016-09-07 20:23] VITALS: BP 87/63
[2016-09-08 01:04] VITALS: BP 128/77
[2016-09-08 04:29] VITALS: BP 117/81
[2016-09-08 05:36] LABS: BASOPHILS 0.2 % (0.0-2.0); EOSINOPHILS 0.3 % (0-7); HEMATOCRIT 38.3 % (42.0-54.0); HEMOGLOBIN 12.4 g/dL (13.5-17.5); IMMATURE GRANULOCYTES 3.2 % (0-5); MCH 27.7 pg (26.0-34.0); MCHC 32.4 g/dL (31.0-37.0); MCV 85.5 fL (80.0-100.0); MEAN PLATELET VOLUME 10.4 fL (7.4-10.4); MONOCYTES 11.5 % (2-11); NEUTROPHILS 77.8 % (40-80); PLATELET COUNT 180 10x3/uL (130-400); RBC 4.48 10x6/uL (4.20-6.10); RDW 15.7 % (11.5-14.5); WBC 6.3 10x3/uL (4.8-10.8)
[2016-09-08 06:00] LABS: ANION GAP 13.3 mmol/L (8-16); CALCIUM 8.5 mg/dL (8.5-10.1); CARBON DIOXIDE 27.4 mmol/L (21.0-32.0); CREATININE - SERUM 2.8 mg/dL (0.6-1.3); POTASSIUM - SERUM 3.7 mmol/L (3.5-5.1)
--- NOTE | 2016-09-08 06:28 | NUR ---
AWAKE ALERT VOICES NO C/O PAIN AT THIS TIME. C/L IN REACH
--- NOTE | 2016-09-08 07:46 | NUR ---
ASSESSMENT DONE. PT LAYING IN BED WATCHING TV. A/O. SEEMS TO BE IN A BETTER MOOD TODAY. PT IS NOT CURRENTLY WEARING O2. STATE IT IS " NEEDED ANYWAY." O2 SAT 96% ON RA. PT STATES HE WAS LIVING WITH FRIENDS PRIOR TO ADMIT, AND HE PLANS TO GO BACK TO STAY WITH THEM WHEN HE IS D/C. PT DID MENTION BEING WEAK, AND WAS CONSIDERING SEEING IF THE REHAB WOULD TAKE HIM BACK. WILL SPEAK TO CM ABOUT THIS. PT TAKEN TO X-RAY VIA WC.
[2016-09-08 08:07] VITALS: BP 118/79
--- NOTE | 2016-09-08 09:54 | NUR ---
RESTS WITH EYES CLOSED. CALL LIGHT IN REACH. WILL CONT. PLAN OF CARE.
[2016-09-08 12:00] VITALS: BP 106/65
[2016-09-08 16:08] VITALS: BP 125/73
--- NOTE | 2016-09-08 19:30 | NUR ---
ASSESSMENT COMPLETE, DENIES NEEDS AT THIS TIME. HOB UP SR UP X2, C/L IN REACH. NOT WEARING O2 @ 2L NC AT THIS TIME. NO SOB NOTED. LEFT FA IV W/O R/S NOTED AT SITE. USES URINAL AT BEDSIDE W/O DIFF. CONTINUE TO MONITOR.
[2016-09-08 20:00] VITALS: BP 105/76
[2016-09-09 00:21] VITALS: BP 133/80
--- NOTE | 2016-09-09 03:07 | NUR ---
EYES CLOSED, RESP UNLAB WITH NO S/S OF ACUTE DISTRESS NOTED. C/L IN REACH. CONTINUE TO MONITOR.
[2016-09-09 04:37] VITALS: BP 134/97
[2016-09-09 04:44] LABS: BASOPHILS 0.1 % (0.0-2.0); EOSINOPHILS 0 % (0-7); HEMATOCRIT 38.7 % (42.0-54.0); HEMOGLOBIN 12.8 g/dL (13.5-17.5); IMMATURE GRANULOCYTES 1.4 % (0-5); LYMPHOCYTES 2.6 % (15-50); MCH 28.2 pg (26.0-34.0); MCHC 33.1 g/dL (31.0-37.0); MCV 85.2 fL (80.0-100.0); MEAN PLATELET VOLUME 10.4 fL (7.4-10.4); MONOCYTES 3.9 % (2-11); PLATELET COUNT 205 10x3/uL (130-400); RBC 4.54 10x6/uL (4.20-6.10); RDW 15.8 % (11.5-14.5)
[2016-09-09 04:46] LABS: WBC 8.8 10x3/uL (4.8-10.8)
[2016-09-09 04:58] LABS: ANION GAP 15.3 mmol/L (8-16); CALCIUM 8.8 mg/dL (8.5-10.1); CARBON DIOXIDE 25.7 mmol/L (21.0-32.0); CREATININE - SERUM 3.2 mg/dL (0.6-1.3)
[2016-09-09 07:17] LABS: MAGNESIUM - SERUM 2.2 mg/dL (1.8-2.4); PHOSPHOROUS 5.5 mg/dL (2.5-4.9)
--- NOTE | 2016-09-09 07:43 | NUR ---
AM ROUNDING DONE WITH PATIENT ON ROOM AIR. LUNGS ARE DIMINISHED, NO WHEEZES HEARD WHEN TAKEN CARE OF BEFORE OVER THE WEEKEND. PATIENT IS ASKING ABUT GOING TO REHAB FOR STRENGHTING. LEFT FA SEEN WITH SALINE LOCK. ON EP, LAB VALUES ARE GOOD, NO REPLACEMENTS NEEDED. WILL CONTINUE TO MONITOR.
[2016-09-09 08:40] VITALS: BP 125/75
--- NOTE | 2016-09-09 09:53 | NUR ---
UP WITH THERAPY AMBULATING AROUND NURSE STATION, LINENS CHANGED.
[2016-09-09 12:25] VITALS: BP 103/73
--- NOTE | 2016-09-09 14:19 | NUR ---
Patient Name: HUI FAUST Encounter No: [id number] : 1945 Primary Insurance: MEDICARE A & B Anticipated DC Date: 09-09-2016 Planned Disposition: Inpatient Rehab External Planned Provider: [facility] DCP follow-up note: CM RECEIVED ORDER FOR INPATIENT REHAB PRESCREEN, MET WITH PT IN ROOM TO DISCUSS DISCHARGE NEEDS AND PLANNING. CM DISCUSSED REHAP OPTIONS. PT WOULD LIKE TO STAY AT [facility] INPATIENT [facility] HE HAS BEEN IN RECENTLY AND RECEIVED GOOD THERAPY. IMPORTANT MESSAGE FROM MEDICARE PROVIDED AND EXPLAINED. CM SPOKE TO RN AZ TAMAYO WHO ADVISED THAT INPATIENT REHAB WILL ACCEPT PT TODAY FOR REHAB IF BEING DISCHARGED. PT NOTIFIED, IN AGREEMENT WITH DISCHARGE TO INPATIENT REHAB. CM NOTIFIED BEDSIDE NURSE AND DR. JOHNSTON. [facility] IN[facility] TO CONTACT MED 2 NURSE WITH ROOM NUMBER WHEN READY TO ACCEPT PT AND NURSE REPORT. Miguel Calderon, CASE MANAGEMENT
[2016-09-09 15:28] VITALS: BP 113/71
--- NOTE | 2016-09-09 16:27 | NUR ---
DR ABEBE HERE TO SEE PATIENT.
[2016-09-09] MEDS ORDERED: BROVANA15 MCG/2 M INH (16:46)
[2016-09-09] MEDS ORDERED: SINGULAIR10 MG PO (16:47)
[2016-09-09] MEDS ORDERED: ATROVENT 0.02%2.5 ML UPD (16:48)
[2016-09-09] MEDS ORDERED: PULMICORT0.5 MG/21 UPD (16:48)
[2016-09-09] MEDS ORDERED: Levaquin PREMIX IV (16:51)
--- NOTE | 2016-09-09 17:07 | NUR ---
170-CALL PLACED TO TANIA SLATER APN R/T LASIX OR NOT AND FOR HOW LONG, AWAITING CALLBACK. 170-TANIA TO CALL AND STATES TO PLACED PATIENT ON LASIX 40 MG PO DAILY UNTIL FURTHER NOTICE. CALL PLACED TO DR JOHNSTON TO SEE ABOUT WHAT IV MEDICATIONS HE WANTS TO CONTINUE IN IP REHAB. AWAITING CALL BACK. 1711-DR JOHNSTON TO CALL BACK AND STATES THAT HE WANTS HIM ON THE IV LEVAQUIN ANTIBIOTICS IF THEY WILL TAKE HIM DOWN THERE ON IT. I SPOKE TO MARIE IN REHAB AND THEY WILL TAKE THE IV AND USE IT UNTIL DR ZEPEDA WANTS IT CHANGED TO ORAL.
--- NOTE | 2016-09-09 18:16 | NUR ---
REPORT CALLED TO MARIE IN REHAB AND SHE SAID THAT WE CAN BRING HIM DOWN AFTER THE IV LEVAQUIN IS FINISHED.
[2016-09-09 20:04] VITALS: BP 110/65
--- NOTE | 2016-09-09 20:30 | NUR ---
D/C PAPERS AND INSTRUCTIONS SIGNED AND UNDERSTANDING VERBALIZED. GOING TO INHOUSE REHAB. ALERT AND ORIENTED X3, RESP UNLAB, 2100 MEDICATIONS GIVEN W/O DIFF, IVPB ANTIBIOTIC INFUSING W/O DIFF VIA PUMP TO LEFT FA NO R/S NOTED AT SITE. PRUNE JUICE GIVEN FOR CONSTIATION. GOING TO ROOM 1112B VIA W/C WITH ASSIST OF STAFF. NO S/S OF ACUTE DISTRESS NOTED.
--- NOTE | 2016-09-18 08:46 | EC ---
PATIENT:HUI FAUST DATE OF SERVICE: 09/02/16 SEX: M MEDICAL RECORD: [id number] DATE OF : [birth year] LOCATION:D.M2 D.213 AGE OF PATIENT: 71 ADMISSION DATE: 09/02/16 REFERRING PHYSICIAN: INTERPRETING PHYSICIAN: STEVEN ROGERS MD ECHOCARDIOGRAM REPORT ECHO CHARGES 5 ECHO LIMITED CLINICAL DIAGNOSIS: CHF/ LIMITED TO ASSESS EF ECHOCARDIOGRAPHIC MEASUREMENTS (adult normal given) AC root (d.<3.7cm) 3.2 LV Septum d (<1.2 cm> 1.3 Valve Excursion 2.0 LV Septum (systole) 1.5 Left Atria (s.<4.0cm> 3.6 LVPW d(<1.2cm) 1.3 RV (d.<2.3cm) 4.1 LVPW (sytole) 1.4 LV diastole(<5.6CM) 6.3 MV E-F(>70mm/sec) LV systole 5.0 LVOT Diameter 2.3 MV exc.(>10mm) 1.8 Est.ejection fraction (50-75%) Pericardial Effusion N DOPPLER: LVIT A E LA RVSP LVOT AOP1/2T Asc. Ao RVOT RA PA AV Gradient Peak AV Mean AV Area MV Gradient Peak MV Mean MV Area COMMENTS: Physician Obstetrician: Wilma BRUNNER Filter Tender:Eula Callaway TAPE# PACS DATE OF SERVICE: 09/08/2016 Limited Echocardiogram for ejection fraction FINDINGS: Left ventricular chamber size is upper limits of normal to mildly dilated. Left ventricular systolic function is mildly reduced, overall ejection fraction 40%. This is overall unchanged, slightly improved from previous ejection fraction. TRANSINT:[id number] Voice Confirmation ID: [id number] DOCUMENT ID: [id number] ECHOCARDIOGRAM REPORT [id number] HUI FAUST STEVEN ROGERS MD at 0846 CC: [id number] DICTATION DATE: 09/08/16 1044 COMPUTER CUSTOMER SUPPORT SPECIALIST: 09/08/16 1748 DIS IN 09/09/[address] [address]
== END 2016-09-09 20:30 | DRG 190 ==
LOC: D.ER 16:14 → D.M2 19:16
PROVIDERS: Family Medicine; Internal Medicine Nephrology; Nurse Practitioner Acute Care; ADMIT Family Medicine
DX: J44.1 Chronic obstructive pulmonary disease with (acute) exacerbation (principal); I50.23 Acute on chronic systolic (congestive) heart failure; J18.9 Pneumonia, unspecified organism; I42.9 Cardiomyopathy, unspecified; I13.0 Hypertensive heart and chronic kidney disease with heart failure and stage 1 through stage 4 chronic kidney disease, or unspecified chronic kidney disease; J96.11 Chronic respiratory failure with hypoxia; N17.9 Acute kidney failure, unspecified; I25.10 Atherosclerotic heart disease of native coronary artery without angina pectoris; N18.9 Chronic kidney disease, unspecified; I48.0 Paroxysmal atrial fibrillation; E78.5 Hyperlipidemia, unspecified; G89.29 Other chronic pain; K59.00 Constipation, unspecified; Z95.5 Presence of coronary angioplasty implant and graft; Z85.46 Personal history of malignant neoplasm of prostate; Z87.891 Personal history of nicotine dependence

== ENCOUNTER 2016-09-09 20:55 | Inpatient (IN) | payer MEDICARE ==
[~2016-09-09] VITALS: Ht 167.6 cm; Wt 68.9 kg
--- NOTE | 2016-09-09 20:45 | NUR ---
PT ARRIVED TO UNIT VIA WHEELCHAIR AND ACCOMPANIED BY HOSPITAL STAFF. PT HAS IV ABX RUNNING. HS MEDS GIVEN UPSTAIRS PRIOR TO ARRIVAL. PT ASSISTED INTO BED AND DENIES NEEDS AT THIS TIME. BED LOW. CL IN [facility].
[~2016-09-09 20:55] MED LIST changes: +ATROVENT 0.02%2.5 ML UPD; +BROVANA15 MCG/2 M INH; +Levaquin PREMIX IV; +PULMICORT0.5 MG/21 UPD; +SINGULAIR10 MG PO
[2016-09-09 21:29] VITALS: BP 102/58; BMI 24.5
--- NOTE | 2016-09-09 22:42 | NUR ---
PT RESTING, EYES CLOSED. BED LOW. CL IN REACH.
--- NOTE | 2016-09-10 00:25 | NUR ---
PT RESTING, EYES CLOSED. BED LOW. CL IN REACH. WCTM.
--- NOTE | 2016-09-10 02:15 | NUR ---
PT RESTING, EYES CLOSED. BED LOW. CL IN REACH.
--- NOTE | 2016-09-10 04:48 | NUR ---
PT RESTING, EYES CLOSED. BED LOW. CLIN [facility].
--- NOTE | 2016-09-10 06:39 | NUR ---
PT REQ AND REC'D PRN PAIN MEDICATION WITH AM MEDS. WCTM. BED LOW. CL IN [facility].
--- NOTE | 2016-09-10 07:00 | NUR ---
Pt. was received in bed at the beginning of this shift. Awake and oriented x 3. Lf forearm with saline lock. 02 per nc going at 2L/min. Denies any pain or discomfort. No signs of any discomfort or distress found. Vital signs: Temp. 98.0, pulse 59, resp. 14, b/p 146/69, 02Sat. 99%. Will be monitoring him and assisting prn with his adl's. Call light is in reach.
[2016-09-10 07:16] LABS: BASOPHILS 0.1 % (0.0-2.0); EOSINOPHILS 0 % (0-7); HEMATOCRIT 38.3 % (42.0-54.0); HEMOGLOBIN 12.7 g/dL (13.5-17.5); IMMATURE GRANULOCYTES 1.6 % (0-5); LYMPHOCYTES 6.6 % (15-50); MCHC 33.2 g/dL (31.0-37.0); MCV 84.5 fL (80.0-100.0); MEAN PLATELET VOLUME 10.1 fL (7.4-10.4); MONOCYTES 1.9 % (2-11); NEUTROPHILS 89.8 % (40-80); PLATELET COUNT 188 10x3/uL (130-400); RBC 4.53 10x6/uL (4.20-6.10)
[2016-09-10 07:19] LABS: WBC 12.2 10x3/uL (4.8-10.8)
[2016-09-10 07:33] LABS: ANION GAP 16.2 mmol/L (8-16); CALCIUM 8.6 mg/dL (8.5-10.1); CARBON DIOXIDE 24.2 mmol/L (21.0-32.0); POTASSIUM - SERUM 4.4 mmol/L (3.5-5.1)
[2016-09-10 08:01] VITALS: BP 146/69
--- NOTE | 2016-09-10 12:00 | NUR ---
Pt. continues to be stable. Pt. went to therapy this morning and participated well. Will continue to observe. No changes to report. Call light is in reach.
[2016-09-10 12:24] VITALS: Ht 167.6 cm; Wt 68.9 kg
--- NOTE | 2016-09-10 20:38 | NUR ---
PT PRN PAIN MEDICATION GIVEN PER ORDERS AT THIS TIME. PT DENIES FURTHUR NEEDS. WCTM. BED LOW. CLIN REACH.
[2016-09-10 20:45] VITALS: BP 112/72
--- NOTE | 2016-09-10 23:47 | NUR ---
PT RESTING, EYES CLOSED. BED LOW. CL IN [facility].
[2016-09-11 05:42] LABS: BASOPHILS 0.1 % (0.0-2.0); EOSINOPHILS 0.1 % (0-7); IMMATURE GRANULOCYTES 1.6 % (0-5); LYMPHOCYTES 2.1 % (15-50); MCH 28.5 pg (26.0-34.0); MCHC 33.3 g/dL (31.0-37.0); MCV 85.4 fL (80.0-100.0); MEAN PLATELET VOLUME 10.3 fL (7.4-10.4); MONOCYTES 5.2 % (2-11); NEUTROPHILS 90.9 % (40-80); PLATELET COUNT 206 10x3/uL (130-400); RBC 4.92 10x6/uL (4.20-6.10); RDW 16.1 % (11.5-14.5); WBC 13.4 10x3/uL (4.8-10.8)
[2016-09-11 05:56] LABS: ANION GAP 15.6 mmol/L (8-16); CALCIUM 9.2 mg/dL (8.5-10.1); CARBON DIOXIDE 25.5 mmol/L (21.0-32.0); CREATININE - SERUM 3.4 mg/dL (0.6-1.3)
[2016-09-11 05:57] LABS: POTASSIUM - SERUM 5.1 mmol/L (3.5-5.1)
--- NOTE | 2016-09-11 06:04 | NUR ---
PT REQ AND REC'D PRN PAIN MEDICAIOTN WITH AM MEDS. PT DENIES FURTHUR NEEDS. WCTM. BED LOW. CLIN REACH.
--- NOTE | 2016-09-11 07:45 | NUR ---
SITTING UP IN BED WITHOUT ANY NEEDS VOICED.
[2016-09-11 07:54] VITALS: BP 103/65
--- NOTE | 2016-09-11 09:58 | NUR ---
PT EXERCISING IN WHEELCHAIR WHILE SITTING IN WHEELCHAIR IN THE GYM. C/O ABDOMINAL PAIN, PRN GIVEN.
--- NOTE | 2016-09-11 10:44 | RHP ---
PATIENT: HUI FAUST MEDICAL RECORD: [id number] ACCOUNT: [id number] LOCATION:[facility]12 : 49 ADMISSION DATE: 09/09/16 REHABILITATION HISTORY AND PHYSICAL EXAMINATION POST ADMISSION PHYSICIAN EXAMINATION Post-admission Physical Exam and History and Physical DATE OF ADMISSION: 09/09/2016 ADMITTING DIAGNOSES: Acute exacerbation of chronic obstructive pulmonary disease and right lower lobe pneumonia. HISTORY OF PRESENT ILLNESS: The patient is admitted to inpatient rehabilitation for acute exacerbation of COPD with right lower lobe pneumonia. He is a 71-year-old gentleman that was recently in the inpatient rehab for congestive heart failure. He did pretty well during his stay in the IRF and was able to return home at his prior level of functioning. He developed some dyspnea and shortness of breath, malaise, and fatigue and presented to the ED, he was found to have an acute exacerbation of COPD, a right lower lobe pneumonia and pulmonary congestion. He was admitted to the acute hospital and has been followed by Pulmonary, Cardiology, and Nephrology, began physical therapy and is noted to require moderate assist with ambulation. The patient is currently min to max assist with ADLs and mobility and his prior level of functioning was completely independent with ADLs and mobility. He is very eager and motivated to return to inpatient rehab due to such a good experience recently. He is receiving IV antibiotics, Levaquin and Maxipime, currently, he is also on IV Solu-Medrol and Lasix. He is requiring the use of Xopenex, Pulmicort and Atrovent updrafts and Brovana inhalers, and is currently on 2 liters of nasal cannula for his O2 requirements. COMORBIDITIES: In this patient include congestive heart failure and pneumonia. He has got pulmonary edema, chronic kidney disease, history of tobacco use, chronic renal insufficiency, illicit drug use, hypertension, history of alcohol abuse, cardiomyopathy, chronic renal insufficiency, hyperlipidemia, recurrent pneumonia, cancer of the prostate and lymphoma. PAST MEDICAL HISTORY: Significant for history of illicit drug use, alcohol use, cardiomyopathy, cardiac dysrhythmia, dyslipidemia, chronic renal insufficiency, COPD, congestive heart failure, hyperlipidemia, recurrent pneumonia, cancer of the prostate, and lymphoma. PAST SURGICAL HISTORY: Includes chemotherapy, radiation therapy, transurethral resection of the prostate. He has had a laparoscopic cholecystectomy in the past and coronary artery disease with stents. ALLERGIES: No known drug allergies. CURRENT MEDICATIONS: He is on a tapering dose of prednisone. He is on Levaquin 750 mg q.48 hours. He is on Xopenex 1.25 q.4 hours p.r.n., Tessalon Perles 100 mg t.i.d., Atrovent ____ q.i.d., thiamine 100 mg daily, spironolactone 25 mg daily, and sodium bicarbonate 650 mg daily. He is on Pravachol 20 mg at bedtime, potassium 20 mEq daily, and Protonix 40 mg daily. He is on Singulair 10 mg q.h.s., metoprolol 50 mg b.i.d. He is on Mucinex D 2 tabs b.i.d., furosemide 40 mg daily, folic acid 1 mg daily, Plavix 75 mg daily, Celexa 20 mg HISTORY AND PHYSICAL [id number] DAUBER,HUI E daily, Pulmicort 0.5 mg b.i.d., aspirin 81 mg daily, Brovana 15 mcg b.i.d., amiodarone 200 mg b.i.d., melatonin 3 mg q.h.s., and [place] 10/325, one tab q.4 hours p.r.n. He is on clonidine p.r.n. elevated blood pressure, and polyethylene glycol 17 grams in 8 ounces of water daily. HABITS: He does have a history of alcohol and tobacco use. FAMILY HISTORY: Noncontributory. SOCIAL HISTORY: The patient hopes to return back home. He usually lives with friends or relatives. REVIEW OF SYSTEMS: GENERAL: He does complain of weakness and fatigue. HEENT: He denies cold, cough, or congestion. CARDIOVASCULAR: Denies any chest pain. LUNGS: Does complain of some shortness of breath. PHYSICAL EXAMINATION: VITAL SIGNS: Stable, afebrile. GENERAL: A well-developed gentleman in no acute distress, alert upon exam. HEENT: Normocephalic and atraumatic. Mucosa moist. NECK: Supple. No lymphadenopathy. LUNGS: Coarse breath sounds bilaterally and decreased breath sounds in the bases. CARDIOVASCULAR: Irregular rate and rhythm. ABDOMEN: Benign. EXTREMITIES: No clubbing, cyanosis, or edema. NEUROLOGIC: Intact. LABORATORY DATA: His white count is 12.12, H&H of 13 and 38 and platelet count was noted to be 188. His sodium is 135, potassium 4.4, BUN and creatinine of 114 and 3.0 and his blood sugars noted to be 164. ASSESSMENT: This is a 71-year-old gentleman admitted to the rehab with a working diagnosis of acute exacerbation of chronic obstructive pulmonary disease. The patient has potential to make improvement. We instituted the following multidisciplinary therapies including to, but not limited to physical, occupational, respiratory, speech, nutritional services, prosthetics and orthotics. Given his complex condition and risk for more complications, rehabilitation services cannot be provided at a low level of care such as a nursing home facility. PLAN: 1. Admit to [facility] rehab for intensive inpatient therapy to include the following disciplines: A. Physical therapy to improve gait, all transfer skills and bed mobility to a modified independent level. B. Occupational therapy to improve activities of daily living to a modified independent level. C. Case management to assist with discharge planning and placement options. D. Nutrition to assist with nutritional needs. E. Rehabilitation nursing to assist in monitoring the patient's underlying medical conditions and to assist with any type of bowel or bladder management. 2. The patient's current medication and medical care will be continued. HISTORY AND PHYSICAL [id number] HUI FAUST 3. The patient will be placed on standard fall precautions. 4. We will continue his IV antibiotic therapy for his pneumonia. 5. We will watch for any signs of congestive heart failure. 6. We will discuss this patient during care team staff meeting this week. TRANSINT:[id number] Voice Confirmation ID: [id number] DOCUMENT ID: [id number] DIMAS ZEPEDA MD at 1044 CC: [id number] DICTATION DATE: 09/10/16 0828 ENROLLER: 09/10/16 1216 ADM IN [facility] [address] [place] [address]
--- NOTE | 2016-09-11 11:55 | NUR ---
ROLLING IN WHEELCHAIR FROM THERAPY ROOM. GIVEN [place] FOR BOWELS.
--- NOTE | 2016-09-11 13:30 | NUR ---
RESTING IN BED WITH CALLIGHT IN REACH.
--- NOTE | 2016-09-11 15:30 | NUR ---
SLEEPING ON RT SIDE IN BED. NO DISTRESS NOTED.
--- NOTE | 2016-09-11 17:18 | NUR ---
RESTING IN BED WITH CALLIGHT IN REACH.
--- NOTE | 2016-09-11 19:22 | NUR ---
PT LYING IN BED, PREFERS DOOR SHUT, RESPIRATIONS REGULAR AND UNLABORED. IV MEDICATION INFUSED, SALINE LOCK PATENT.
[2016-09-11 19:54] VITALS: BP 100/58
--- NOTE | 2016-09-11 20:30 | NUR ---
pt refuses all offers to promote evacuation of stool.
--- NOTE | 2016-09-12 00:26 | NUR ---
PT RESTING QUIETLY, NO S/S OF ACUTE DISTRESS. RESPIRATIONS REGULAR AND UNLABORE.D
--- NOTE | 2016-09-12 07:10 | NUR ---
pt stated rest well, denies any needs.
--- NOTE | 2016-09-12 07:30 | NUR ---
RESTING QUIETLY IN BED CALL LIGHT IN REACH
[2016-09-12 08:00] VITALS: BP 114/73
--- NOTE | 2016-09-12 10:40 | NUR ---
PATIENT IN REHAB ROOM. WORKING WITH OCCUPATIONAL THERAPIST. STATES HE FEELS TERRIBLE DUE TO CONSTIPATION. STATES HE HAS NOT HAD A BOWEL MOVEMENT FOR TEN DAYS. THIS IS THE FIRST DAY THIS NURSE HAS HAD PATIENT. IN REPORT HS NURSE STATED THAT PATIENT HAS BEEN REFUSING TO TAKE ANY MEDICATION FOR CONSTIPATION. PATIENT STATED THAT HE WILL NOW TAKE PRN MEDICATION FOR CONSTIPATION. PRN MIRALAX AND PRN STOOL SOFTNER GIVEN
--- NOTE | 2016-09-12 13:00 | NUR ---
PATIENT RESTING IN BED AFTER THERAPY AND LUNCH. VOICES NO NEEDS AT THIS TIME
--- NOTE | 2016-09-12 14:36 | NUR ---
NEW ORDER RECEIVED FOR DUCOLOX SUPP. FOR NO BOWEL MOVEMENT MORE THEN THREE DAYS.
--- NOTE | 2016-09-12 17:48 | NUR ---
PATIENT HAS NOT HAD A BOWEL MOVEMENT. PRN DUCOLAX SUPP GIVEN
[2016-09-12 19:28] VITALS: BP 107/74
--- NOTE | 2016-09-12 19:53 | NUR ---
PT STATES HE IS FEELING BETTER SINCE HE HAD A BM, DENIES PAIN, DENIES NEEDS. RESTING IN ROOM.
--- NOTE | 2016-09-13 00:28 | NUR ---
PT RESTING QUIETLY, NO SIGNS OR SYMPTOMS OF DISTRESS.
--- NOTE | 2016-09-13 07:06 | NUR ---
RESTING QUIETLY IN BED. CALL LIGHT IN REACH
[2016-09-13 08:00] VITALS: BP 114/56
--- NOTE | 2016-09-13 10:17 | NUR ---
PATIENT HAS A STEADY GAIT. ABLE TO WALK AROUND ROOM AND TAKE SELF TO BATHROOM BY SELF
--- NOTE | 2016-09-13 13:32 | NUR ---
PATIENT RESTING IN ROOM. RESPITORY THERAPIST IN ROOM GIVEN BREATHING TX
--- NOTE | 2016-09-13 18:38 | NUR ---
LEVAQUIN ANTIBIOTIC RUNNING. LA PERIPHERAL LINE
[2016-09-13 20:43] VITALS: BP 109/66
--- NOTE | 2016-09-13 21:00 | NUR ---
PT TOOK HS MEDS WITHOUT DIFFICULTY. PT REQ AND REC'D PRN PAIN MEDICATION AND MELATONIN PER ORDERS AT THIS TIME. PT DENIES FURTHUR NEEDS. WCTM. BED LOW. CL IN [facility].
--- NOTE | 2016-09-13 23:15 | NUR ---
PT RESTING, EYES CLOSED. BED LOW. CL IN [facility]. WCTM.
--- NOTE | 2016-09-14 00:20 | NUR ---
PT RESTING, EYES CLOSED. BED LOW. CL IN REACH.
--- NOTE | 2016-09-14 02:15 | NUR ---
PT RESTING, EYES CLOSE.D BED LOW. CL IN REACH.
--- NOTE | 2016-09-14 04:55 | NUR ---
PT RESTING, EYES CLOSED. BED LOW. CL IN REACH.
[2016-09-14 06:00] LABS: BASOPHILS 0.1 % (0.0-2.0); EOSINOPHILS 0.1 % (0-7); HEMATOCRIT 40.4 % (42.0-54.0); HEMOGLOBIN 13.1 g/dL (13.5-17.5); IMMATURE GRANULOCYTES 1.7 % (0-5); LYMPHOCYTES 2.9 % (15-50); MCH 27.9 pg (26.0-34.0); MCHC 32.4 g/dL (31.0-37.0); MEAN PLATELET VOLUME 10.7 fL (7.4-10.4); MONOCYTES 4.7 % (2-11); NEUTROPHILS 90.5 % (40-80); PLATELET COUNT 188 10x3/uL (130-400); RDW 16.2 % (11.5-14.5); WBC 13.9 10x3/uL (4.8-10.8)
[2016-09-14 06:21] LABS: ANION GAP 13.8 mmol/L (8-16); CARBON DIOXIDE 25.7 mmol/L (21.0-32.0); CREATININE - SERUM 3.7 mg/dL (0.6-1.3); POTASSIUM - SERUM 5.5 mmol/L (3.5-5.1)
[2016-09-14 08:00] VITALS: BP 129/57
--- NOTE | 2016-09-14 08:15 | NUR ---
DR. Victor Manuel ZEPEDA INTO SEE PATIENT. NEW ORDERS RECEIVED.
--- NOTE | 2016-09-14 09:25 | NUR ---
RESTING QUIETLY IN BED
--- NOTE | 2016-09-14 10:26 | NUR ---
PATIENT IN REHAB ROOM WORKING WITH PHYSICAL THERAPIST. DENIES ANY PAIN/DISC AT THIS TIME
--- NOTE | 2016-09-14 11:13 | NUR ---
PRN [place] GIVEN FOR CONSTIPATION
--- NOTE | 2016-09-14 14:57 | NUR ---
OCCUPATIONAL THERAPIST IN ROOM HELPING PATIENT WITH A SHOWER. LINENS ON BED CHANGED
--- NOTE | 2016-09-14 17:39 | NUR ---
PATIENT SITTING UP AT THE SIDE OF THE BED TO EAT SUPPER. CALL LIGHT WITHIN REACH. VOICES NO NEEDS
[2016-09-14 20:19] VITALS: BP 93/44
--- NOTE | 2016-09-14 20:25 | NUR ---
PT REQ AND REC'D PRN PAIN MED AND MELATONIN ALONG WITH HS MEDS. PT DENIES FURTHUR NEEDS AT THIS TIME. BED LOW. CLIN [facility].
--- NOTE | 2016-09-14 22:49 | NUR ---
PT RESTING, EYES CLOSED. BED LOW. CL IN REACH.
--- NOTE | 2016-09-15 01:55 | NUR ---
PT RESTING, EYES CLOSED. BED LOW. CL IN REACH. WCTM.
--- NOTE | 2016-09-15 05:42 | NUR ---
PT TOOK AM MEDS WITHOUT DIFFICULTY. PT DENIES NEEDS AT THIS TIME. BED LOW. CL IN REACH.
[2016-09-15 06:25] LABS: ANION GAP 15.9 mmol/L (8-16); CALCIUM 9.1 mg/dL (8.5-10.1); CARBON DIOXIDE 24.6 mmol/L (21.0-32.0); CREATININE - SERUM 4.1 mg/dL (0.6-1.3); POTASSIUM - SERUM 5.5 mmol/L (3.5-5.1)
--- NOTE | 2016-09-15 08:00 | NUR ---
SHIFT ASSMT COMPLETED.DENIES NEEDS.BREAKFAST GIVEN.CL IN REACH.
[2016-09-15 08:03] VITALS: BP 90/58
--- NOTE | 2016-09-15 12:00 | NUR ---
LUNCH GIVEN.CL IN REACH.
--- NOTE | 2016-09-15 20:05 | NUR ---
PT AGGRAVATED WITH THE IV PUMP ALARM, PT ACCEPTED MY APOLOGY. PT STATES HE WOULD LIKE A PAIN MEDICATION WITH HIS EVENING MEDS. PT STATES HE HAD AN OK DAY, PT STATES HE DOESN'T WANT TO WEAR HIS OXYGEN N/C.
[2016-09-15 20:15] VITALS: BP 134/72
--- NOTE | 2016-09-16 02:12 | NUR ---
PT RESTING ON RIGHT SIDE, RESPIRATIONS REGULAR AND UNLABORED. NO S/S OF ACUTE DISTRESS.
--- NOTE | 2016-09-16 07:00 | NUR ---
Pt. was received in bed at the beginning of this shift. He was awake and oriented x 3. Denies any pain or discomfort at this time. Left forearm has saline lock that is patent. Vital signs: Temp. 98.0, pulse 72, resp. 15, b/p 115/68, 02sat. 96%. Stable condition observed.
[2016-09-16 08:42] VITALS: BP 115/68
--- NOTE | 2016-09-16 13:07 | NUR ---
Pt. is having an uneventful shift. He went to therapy this morning and is resting now after having eatten his lunch. Call light is in reach.
--- NOTE | 2016-09-16 13:51 | NUR ---
Nutrition Follow Up: Pt reported that his appetite is not very good. He said that he feels he cannot taste the food. He said that everything lacks flavor. RD encouraged po intake and for pt to make staff aware of any food preferences. Pt is eating 50% meal avg on a Renal diet. +BM 09/15/16. Labs noted - BUN, Cr, K+ elevated. Meds noted including Prednisone, Thiamine and Lasix. Pt with poor po intake at this time. Pt may benefit from an appetite stimulant. Rec continue current diet. Will continue to send selective menus and honor food preferences. RD following.
--- NOTE | 2016-09-16 13:52 | NUR ---
CARE TEAM MEETING: PATIENT TENATIVE DISCHARGE DATE IS 09/22/16. PATIENT PLASN ARE FOR HIM TO RETURN TO FRIENDS HOUSE. WILL CONTINUE TO FOLLOW WITH PATIENT
--- NOTE | 2016-09-16 15:53 | NUR ---
PT HAD A ORTHOSTATIC HYPOTENSIVE EPISODE IN THERAPY THIS AFTERNOON. HIS BLOOD PRESSURE WAS 76/29 AND PULSE OF 57. HE WAS TAKEN TO HIS ROOM AND LAYED DOWN. BLOOD PRESSURE RAISED TO 128/72 AND PULSE 55. AT 1430 B/P WAS 109/69, PULSE 57, RESP. [address] ZEPEDA WAS NOTIFIED AND HE DECREASED THE LOPRESSOR TO 25MG BID. NEW ORDER PUT IN AND WILL BEGIN TONIGHT.
[2016-09-16 19:00] VITALS: BP 94/60
--- NOTE | 2016-09-16 19:09 | NUR ---
Pt. is stable and resting with eyes closed in bed and light is off. Bed alarm device is attached to pt. and is working properly. No signs of any discomfort or distress.
--- NOTE | 2016-09-17 06:35 | NUR ---
PT STATED HE HAD AN OK SLEEP.
--- NOTE | 2016-09-17 07:24 | NUR ---
RESTING QUIETLY IN BED. CALL LIGHT IN REACH
--- NOTE | 2016-09-17 08:15 | NUR ---
PT RESTING IN BED WITH EYES OPEN CALL LIGHT IN REACH PT EATING BREAKFAST TOLERATING WELL WILL MONITER
[2016-09-17 08:22] VITALS: BP 89/65
--- NOTE | 2016-09-17 13:25 | NUR ---
PT RESTING IN BED WITH EYES OPEN CALL LIGHT IN REACH WILL MONITER
--- NOTE | 2016-09-17 18:43 | NUR ---
PT RESTING IN BED WITH EYES OPEN CALL LIGHT IN REACH NO PROBLEMS WILL MONITER
[2016-09-17 19:00] VITALS: BP 125/70
--- NOTE | 2016-09-17 19:00 | NUR ---
RECEIVED PT IN BED WITH HOB UP FOR COMFORT, 02 @ 2.5L VIA N/C, LEFT FOREARM IV SALINE LOCK PATENT, FLUSHES EASILY, AND SHOWS NO S/S OF INFECTION. PT HAS NO COMPLAINTS AT THIS TIME. BED IN LOWEST POSITION AND CALL LIGHT WITHIN REACH.
--- NOTE | 2016-09-18 01:30 | NUR ---
PT IN BED HOB UP FOR COMFORT, EYES CLOSED, CHEST RISING AND FALLING, BED IN LOWEST POSITION, CALL LIGHT WITHIN REACH.
--- NOTE | 2016-09-18 03:44 | NUR ---
PT RESTING, EYES CLOSED. BED LOW. CL IN REACH.
--- NOTE | 2016-09-18 05:51 | NUR ---
PT IN BED WITH HOB UP FOR COMFORT, EYES CLOSED, CHEST RISING AND FALLING, 02 @ 2.5L VIA N/C, BED IN LOWEST POSITIONAND CALL LIGHT WITHIN REACH.
[2016-09-18 08:23] VITALS: BP 99/67
--- NOTE | 2016-09-18 09:30 | NUR ---
RESTING IN BED ON RT SIDE WITHOUT ANY NEEDS VOICED.
--- NOTE | 2016-09-18 11:40 | NUR ---
SITTING IN WHEELCHAIR WORKING IN THERAPY. NO NEEDS VOICED.
--- NOTE | 2016-09-18 13:35 | NUR ---
AMBULATING IN THE HALLWAY WITH THERAPY. NO FALLS NOTED.
--- NOTE | 2016-09-18 15:23 | NUR ---
SLEEPING IN BE ON RT SIDE. NO DISTRESS NOTED.
--- NOTE | 2016-09-18 17:02 | NUR ---
SLEEPING IN THE BED.
[2016-09-18 19:30] VITALS: BP 81/51
--- NOTE | 2016-09-18 22:10 | NUR ---
PT REQ AND REC'D PRN PAIN MEDICATION AND MELATONIN ALONG WITH HS MEDS PER ORDERS AT THIS TIME. PT BP MEDICATION NOT GIVEN DUE TO LOW BP. PT DENIES FURTHUR NEEDS. WCTM. BED LOW. CL IN REACH.
--- NOTE | 2016-09-19 01:50 | NUR ---
PT RESTING, EYES CLOSED. BED LOW. CL IN REACH. WCTM.
--- NOTE | 2016-09-19 05:28 | NUR ---
PT TOOK AM MEDS WITHOUT DIFFICULTY. PT DENIES NEEDS AT THIS TIME. BED LOW. CL IN REACH.
[2016-09-19 07:00] VITALS: BP 118/80
--- NOTE | 2016-09-19 08:00 | NUR ---
PT. OBSERVED LYING IN BED WITH EYES CLOSED. RESPIRATIONS EVEN AND UNLABORED. PT. DENIES ANY CONCERNS AT THIS TIME. CALL LIGHT AND PERSONAL ITEMS WITHIN REACH. BED IN LOWEST POSITION.
--- NOTE | 2016-09-19 10:00 | NUR ---
RECHECKED BLOOD PRESSURE AFTER MEDICATIONS THIS MORNING. LYING DOWN ON RIGHT SIDE BP 83/43 RIGHT. RECHECKED BP AGAIN ARM 96/64. PT IS ALERT AND ORIENTED TIMES FOUR. PT REPORTS HE HAS NO DIZZINES AND DOES NOT FEEL NAUSEATED SKIN PIGMENTATION WNL. ENCOURAGED PT. TO DRINK FLUIDS. WILL CONTINUE TO MONITOR.
--- NOTE | 2016-09-19 12:00 | NUR ---
PT OBSERVED SITTING UP IN BED EATING LUNCH. PT DENIES ANY CONCERNS AT THIS TIME. CALL LIGHT AND PERSONAL ITEMS WITHIN REACH. BED IN LOWEST POSITION.
--- NOTE | 2016-09-19 14:00 | NUR ---
LYING ON SIDE.DENIES NEEDS.CL IN REACH.
--- NOTE | 2016-09-19 18:11 | NUR ---
CONTACTED DR. ZEPEDA AND LEFT A MESSAGE ON HIS CELL PHONE REGARDING PT'S LOW BLOOD PRESSURE. WILL NOTIFY ON COMING SHIFT OF PT'S CURRENT CONDITION.
[2016-09-19 19:26] VITALS: BP 95/61
--- NOTE | 2016-09-19 19:28 | NUR ---
pt states he does have periods of occasionally dizziness when going from sit to stand position, pt verbalizes understanding not to stand rapidly.
--- NOTE | 2016-09-20 00:44 | NUR ---
pt resting quietly, respirations regular and unlabored. no s/s of acute distress, emptied urinal.
--- NOTE | 2016-09-20 02:44 | NUR ---
pt resting quietly, no s/s of acute distress. respirations regular and unlabored. pt uses urinal. emptied.
[2016-09-20 06:32] LABS: BASOPHILS 0.1 % (0.0-2.0); EOSINOPHILS 0.3 % (0-7); HEMATOCRIT 37.9 % (42.0-54.0); HEMOGLOBIN 12.4 g/dL (13.5-17.5); IMMATURE GRANULOCYTES 1.2 % (0-5); LYMPHOCYTES 8.4 % (15-50); MCH 27.9 pg (26.0-34.0); MCHC 32.7 g/dL (31.0-37.0); MCV 85.4 fL (80.0-100.0); MEAN PLATELET VOLUME 10.5 fL (7.4-10.4); MONOCYTES 2.8 % (2-11); NEUTROPHILS 87.2 % (40-80); PLATELET COUNT 160 10x3/uL (130-400); RBC 4.44 10x6/uL (4.20-6.10); RDW 15.8 % (11.5-14.5); WBC 13.3 10x3/uL (4.8-10.8)
[2016-09-20 06:43] LABS: ANION GAP 14.3 mmol/L (8-16); CALCIUM 8.7 mg/dL (8.5-10.1); CARBON DIOXIDE 25.2 mmol/L (21.0-32.0); CREATININE - SERUM 4.4 mg/dL (0.6-1.3); POTASSIUM - SERUM 4.5 mmol/L (3.5-5.1)
[2016-09-20 08:00] VITALS: BP 115/73
--- NOTE | 2016-09-20 08:00 | NUR ---
PT OBSERVED LYING IN BED RESTING WITH EYES CLOSED. RESPIRATIONS EVEN AND UNLABORED. PT DENIES ANY CONCERNS AT THIS TIME. CALL LIGHT AND PERSONAL ITEMS WITHIN REACH.
--- NOTE | 2016-09-20 12:00 | NUR ---
PT OBSERVED SITTING UP RIGHT IN BED EATING LUNCH. PT DENIES ANY CONCERNS AT THIS TIME. CALL LIGHT AND PERSONAL ITEMS WITHIN REACH BED IN LOWEST POSITION.
--- NOTE | 2016-09-20 15:43 | NUR ---
PT RESTING QUIETLY EYES CLOSED. RESPIRATIONS EVEN AND UNLABORED. BED IN LOWEST POSITION. SIDE RAILS UP TIMES TWO. CALL LIGHT AND PERSONAL ITEMS WITHIN REACH.
--- NOTE | 2016-09-20 17:43 | NUR ---
PATIENT EATING DINNER. DENIES NEEDS. CALL LIGHT IN REACH. BED RAILS UP X'S 2. BED IN LOWEST POSITION.
[2016-09-20 19:40] VITALS: BP 87/56
--- NOTE | 2016-09-20 19:45 | NUR ---
PT RESTING IN BED WITH EYES OPEN. ALERT AND ORIENTED X 3. DENIES ACUTE DISCOMFORT AT THIS TIME, BUT STATES HE THINKS HE IS GETTING WEAKER INSTEAD OF STRONGER. ASSISTED TO THE BATHROOM AT THIS TIME. ALL TASKS DONE WITH SBA. PT OFFERED A SHOWER. HE REFUSED STATING: " I KNOW I KEEP PUTTING IT OFF, BUT I JUST DONT WANT ONE TODAY. I PROMISE I WILL TAKE ONE NEXT TIME." SR'S ARE UP X 2 WHILE IN BED. CALL LIGHT AND BEDSIDE TABLE ARE WITHIN EASY REACH.
--- NOTE | 2016-09-20 20:00 | NUR ---
UP IN W/C AT BEDSIDE HAVING JUST RETURNED FROM TOILETING IN BR.
--- NOTE | 2016-09-20 22:16 | NUR ---
PT IS RESTING QUIETLY IN BED WITH EYES CLOSED. RESPS ARE EVEN AND UNLABORED. NO ACUTE DISTRESS NOTED.
--- NOTE | 2016-09-21 02:03 | NUR ---
PT IS RESTING QUIETLY IN BED WITH EYES CLOSED. RESPS ARE EVEN AND UNLABORED. NO ACUTE DISTRESS NOTED.
--- NOTE | 2016-09-21 04:56 | NUR ---
PT RESTING IN BED WITH EYES CLOSED.
[2016-09-21 06:43] LABS: ANION GAP 14.9 mmol/L (8-16); CALCIUM 9.1 mg/dL (8.5-10.1); CARBON DIOXIDE 24.1 mmol/L (21.0-32.0); CREATININE - SERUM 3.9 mg/dL (0.6-1.3)
--- NOTE | 2016-09-21 07:22 | NUR ---
RESTING QUIETLY IN BED CALL LIGHT IN REACH
[2016-09-21 08:00] VITALS: BP 101/50
--- NOTE | 2016-09-21 08:00 | NUR ---
PATIENT INDEPENDANT IN ROOM. SITTING UP ON THE SIDE OF THE BED TO EAT BREAKFAST. CALL LIGHT WITHIN REACH
--- NOTE | 2016-09-21 08:35 | NUR ---
LOPRESSOR HELD DUE TO LOW B/P OF 101/50.
--- NOTE | 2016-09-21 10:38 | NUR ---
DR. BONDS OFFICE CALLED FOR CONSULT REGARDING LOW BLOOD PRESURES. THIS NURSE TALKED WITH MATEUSZ RN AT OFFICE WHO STATED SHE WILL GIVE DR. BURGESS MESSAGE IN REGARD TO.
--- NOTE | 2016-09-21 13:52 | NUR ---
PATIENT ALERT/ORIENT X4. HAS INDEPENDACE IN ROOM. STEADY GAIT. WALKING TO AND FROM THE BATHROOM
--- NOTE | 2016-09-21 15:30 | NUR ---
DR. BERTRAND INTO SEE PATIENT. NOTES. WILL STOP LASIX OK TO D/C FROM CV STANDPOINT.
--- NOTE | 2016-09-21 17:48 | NUR ---
PATIENT SITTING UP AT THE SIDE OF THE BED TO EAT SUPPER. POOR APPETITE. ONLY ATE 10% OF SUPPER.
[2016-09-21 19:00] VITALS: BP 104/71
--- NOTE | 2016-09-21 19:30 | NUR ---
RESTING QUIETLY IN BED ON RIGHT SIDE. NO DISTRESS NOTED.
--- NOTE | 2016-09-21 22:30 | NUR ---
ASSESSMENT AND HS MEDS COMPLETE. PATIENT DENIES NEEDS. ASSISTED HIM TO COMPLETE HIS MENU.
--- NOTE | 2016-09-21 23:45 | NUR ---
RESTING IN BED ON RIGHT SIDE. NO DISTRESS NOTED.
--- NOTE | 2016-09-22 02:00 | NUR ---
CONTINUES IN BED, LYING ON RIGHT SIDE. EMPTIED 200ML FROM BEDSIDE URINAL.
--- NOTE | 2016-09-22 06:00 | NUR ---
GAVE PATIENT SCHEDULED PROTONIX. DENIES NEEDS.
[2016-09-22 06:54] LABS: BASOPHILS 0.1 % (0.0-2.0); EOSINOPHILS 0.4 % (0-7); HEMATOCRIT 36.9 % (42.0-54.0); HEMOGLOBIN 12.1 g/dL (13.5-17.5); IMMATURE GRANULOCYTES 1.3 % (0-5); LYMPHOCYTES 3.5 % (15-50); MCH 27.9 pg (26.0-34.0); MCHC 32.8 g/dL (31.0-37.0); MEAN PLATELET VOLUME 10.3 fL (7.4-10.4); MONOCYTES 6.9 % (2-11); NEUTROPHILS 87.8 % (40-80); PLATELET COUNT 140 10x3/uL (130-400); RBC 4.34 10x6/uL (4.20-6.10); WBC 12.2 10x3/uL (4.8-10.8)
[2016-09-22 07:12] LABS: ANION GAP 15.1 mmol/L (8-16); CALCIUM 8.9 mg/dL (8.5-10.1); CARBON DIOXIDE 24.8 mmol/L (21.0-32.0); CREATININE - SERUM 3.5 mg/dL (0.6-1.3); POTASSIUM - SERUM 3.9 mmol/L (3.5-5.1)
--- NOTE | 2016-09-22 08:04 | NUR ---
ALERT/ORIENT X4. POSSIBLE DISCHARGE TODAY. HAS SIGNED A BED/CHAIR ALARM WAVIOR. INDEPENDANCE IN ROOM.
[2016-09-22] MEDS ORDERED: LOPRESSOR25 MG PO (08:12)
[2016-09-22 08:17] VITALS: BP 86/51
--- NOTE | 2016-09-22 09:00 | NUR ---
SCHDULED LASIX AND SCHDULED LOPRESSOR HELD DUE TO LOW BLOOD PRESSURE. SEE DR. MADDOX NOTE
--- NOTE | 2016-09-22 10:43 | NUR ---
DISCHARGE ORDERS WRITTEN. LAUREEN STATED THAT PATIENT WILL BE DISCHARGED ON WEDNESDAY DUE TO PATIENT NOT BEING ABLE TO GO BACK TO WHERE HE WAS LIVING BEFORE
--- NOTE | 2016-09-22 11:49 | NUR ---
PATIENT SITTING UP AT BEDSIDE TO EAT LUNCH. VOICES NO NEEDS AT THIS TIME. HAS INDEPENDANCE IN ROOM. WALKING TO AND FROM BATHROOM BY SELF
--- NOTE | 2016-09-22 12:22 | NUR ---
Nutrition Follow Up: Chart reviewed. Pt is to d/c Wednesday. Pt is eating 78% meal avg on a Renal diet. +BM 09/21/16. Labs noted - BUN, Cr continue elevated. Meds noted including Thiamine, Lasix, Folate. Pt with good po intake at this time. Rec continue current diet. RD following.
--- NOTE | 2016-09-22 13:57 | NUR ---
PATIENT IN REHAB ROOM. WORKING WITH PHYSICAL THERAPIST. DENIES ANY PAIN/DISC.
--- NOTE | 2016-09-22 17:57 | NUR ---
PATIENT SITTING UP ON THE SIDE OF THE BED TO EAT SUPPER. CONTINUE TO HAVE A POOR APPETITE. AT ABOUT 20% OF SUPPER
--- NOTE | 2016-09-22 18:23 | NUR ---
RESTING QUIETLY IN BED
--- NOTE | 2016-09-22 19:20 | NUR ---
PT LYING ON SIDELYING POSITION, RESPIRATIONS REGULAR AND UNLABORED, EYES CLOSED, DINNER TRAY REMOVED WITH MIN AMOUNT EATEN. NO S/S OF ACUTE DISTRESS.
[2016-09-22 19:35] VITALS: BP 95/47
--- NOTE | 2016-09-22 21:00 | NUR ---
PT REQ AND REC'D PRN PAIN MEDICATION WITH HS MEDS. LOPRESSOR HELD DUE TO LOW BP OF 95/47. WCTM. BED LOW. CL IN REACH.
--- NOTE | 2016-09-23 00:14 | NUR ---
PT RESTING, EYES CLOSED. BED LOW. CLIN REACH.
--- NOTE | 2016-09-23 01:57 | NUR ---
PT RESTING, EYES CLOSED. BED LOW. CL IN REACH. WCTM.
--- NOTE | 2016-09-23 04:44 | NUR ---
PT RESTING, EYES CLOSED. BED LOW. CL IN REACH.
--- NOTE | 2016-09-23 06:31 | NUR ---
PT TOOK AM MEDS WITHOUT DIFFICULTY. PT DENIES FURTHUR NEEDS AT THIS TIME. BED LOW. CL IN REACH.
--- NOTE | 2016-09-23 08:00 | NUR ---
PATIENT ALERT/ORIENT X4. SITTING UP AT THE SIDE OF THE BED TO EAT BREAKFAST. PATIENT HAS SIGNED A BED/CHAIR ALARM WAVIOR. HAS INDEPENDANCE TO WALK IN ROOM.
[2016-09-23 08:17] VITALS: BP 89/48
--- NOTE | 2016-09-23 09:00 | NUR ---
SCHEDULED LOPRESSER HELD. B/P 48.
--- NOTE | 2016-09-23 09:49 | NUR ---
PATIENT IN REHAB ROOM. WORKING WITH OCCUPATIONAL THERAPIST. DENIES ANY PAIN/DISC AT THIS TIME
--- NOTE | 2016-09-23 11:30 | NUR ---
PATIENT BACK IN ROOM AFTER THERAPY. RESTING IN BED.
[2016-09-23 13:08] LABS: BASOPHILS 0.1 % (0.0-2.0); EOSINOPHILS 0.4 % (0-7); HEMATOCRIT 36.1 % (42.0-54.0); HEMOGLOBIN 11.9 g/dL (13.5-17.5); IMMATURE GRANULOCYTES 1.2 % (0-5); LYMPHOCYTES 6.6 % (15-50); MCH 28.2 pg (26.0-34.0); MCV 85.5 fL (80.0-100.0); MEAN PLATELET VOLUME 10.6 fL (7.4-10.4); MONOCYTES 4.2 % (2-11); NEUTROPHILS 87.5 % (40-80); PLATELET COUNT 122 10x3/uL (130-400); RBC 4.22 10x6/uL (4.20-6.10); WBC 10.7 10x3/uL (4.8-10.8)
[2016-09-23 13:31] LABS: ANION GAP 13.2 mmol/L (8-16); CALCIUM 8.4 mg/dL (8.5-10.1); CARBON DIOXIDE 23.6 mmol/L (21.0-32.0); CREATININE - SERUM 3.2 mg/dL (0.6-1.3); POTASSIUM - SERUM 3.8 mmol/L (3.5-5.1)
--- NOTE | 2016-09-23 15:11 | NUR ---
PATIENT TO BE DISCHARGED FROM REHAB ON Wednesday09/25/16.
--- NOTE | 2016-09-23 15:21 | NUR ---
CARE TEAM MEETING: TENATIVE DISCHARGE DATE IS 09/25/16. PATIENT HAS NO PCP AND HAS BEEN INSTRUCTED ON SEVERAL OCCASIONS TO NOTIFY [facility] TO GET ESATBLISHED WITH A PCP. PATIENT HAS O2, WALKER AND NEBULIZER. WILL CONTINUE TO FOLLOW WITH PATIENT UNTILL DISCHARGED
--- NOTE | 2016-09-23 18:55 | NUR ---
PT HAS HAD AN UNEVENTFUL DAY. NO CHANGES IN HEALTH STATUS TO REPORT. PT. PARTICIPATED WELL IN THERAPY TODAY. STABLE CONDITION OBSERVED.
[2016-09-23 19:00] VITALS: BP 114/52
--- NOTE | 2016-09-23 19:30 | NUR ---
PT RESTING IN BED, DENIES NEEDS. WCTM. BED LOW. CLIN REACH.
--- NOTE | 2016-09-23 21:30 | NUR ---
PT REQ AND REC'D PRN PAIN MEDICATION, TESSALON PERLE AND MELATONIN ALONG WITH HS MEDS. METOPROLOL HELD DUE TO LOW BP OF 85/61. PT DENIES NEEDS AT THIS TIME. BED LOW. CL IN REACH.
--- NOTE | 2016-09-23 23:14 | NUR ---
PT RESTING, EYES CLOSED. BED LOW. CL IN REACH.
--- NOTE | 2016-09-24 01:47 | NUR ---
PT RESTING, EYES CLOSED. BED LOW. CLIN [facility].
--- NOTE | 2016-09-24 04:36 | NUR ---
PT RESTING, EYES CLOSED. BED LOW. CL IN REACH.
--- NOTE | 2016-09-24 06:28 | NUR ---
PT TOOK AM MEDS WITHOUT DIFFICULTY. PT DENIES NEEDS AT THIS TIME. BED LOW. CL INR EACH.
--- NOTE | 2016-09-24 07:00 | NUR ---
PT WAS RECEIVED AT THE BEGINNING OF THIS SHIFT. HE WAS RESTING IN BED AWAKE AND ORIENTED X 3. DENIED ANY PAIN OR DISCOMFORT. VITAL SIGNS; TEMP. 98.0, PULSE 80, RESP. 15, B/P 83/53, 02SAT. 98%. WILL BE MONITORING HIM AND ASSISTING PRN WITH ADL'S.
[2016-09-24 10:17] VITALS: BP 83/53
--- NOTE | 2016-09-24 12:00 | NUR ---
PT. WENT TO THERAPY THIS MORNING AND PARTICPATED WELL. NO VOICED COMPLAINTS OR CONCERNS. PT IS BACK IN HIS ROOM FOR LUNCH. WILL CONTINUE TO OBSERVE AND ASSIST NEEDED. CALL LIGHT IS IN REACH.
--- NOTE | 2016-09-24 18:44 | NUR ---
PT IS RESTING IN BED. LIGHTS ARE OUT. BREATHING EASY AND UNLABORED.
[2016-09-24 19:45] VITALS: BP 84/50
--- NOTE | 2016-09-24 19:50 | NUR ---
PT STATES HE IS READY TO GO HOME, PT REQUESTS A PAIN MEDICATION WITH HIS HS MEDICATIONS. PT STATES HE HAS AN OCCASIONAL COUGH.
--- NOTE | 2016-09-24 21:30 | NUR ---
PT INQUIRED IF IT WERE PM OR AM, TOLD THE PATIENT IT WAS PM, PT STATED HE WAS JUST HOPEFUL IT WAS ALREADY MORNING HE WANTS TO BE DISCHARGED BY 930A.
--- NOTE | 2016-09-25 00:26 | NUR ---
PT RESTING QUIETLY, EYES CLOSED, NO S/S OF ACUTE DISTRESS. PT PREFERS TO HAVE HIS DOOR CLOSED.
--- NOTE | 2016-09-25 06:28 | NUR ---
PT IN BED WITH HOB UP FOR COMFORT, EYES CLOSED, CHEST RISING AND FALLING, BED IN LOWEST POSITION AND CALL LIGHT WITHIN REACH.
--- NOTE | 2016-09-25 07:25 | NUR ---
RESTING IN BED ON LT SIDE SLEEPING.
[2016-09-25 08:54] VITALS: BP 90/56
--- NOTE | 2016-09-25 11:14 | NUR ---
PATIENT DISCHARGING HOME. PATIENT INSTRUCTED TO CALL [facility] TO GET ESTABLISHED WITH A PCP. DR. ARBOLEDA 10/27/16 @ 10:00. [facility] FORM SIGNED AND FILED IN CHART. PATIENT EDUCATED ON IMPORTANCE OF BEING COMPLIANT WITH MEDICATIONS AND FOLLOW UP CARE APPOINTMENTS. DECLINED HOME HEALTH
--- NOTE | 2016-09-25 11:50 | NUR ---
SITTING IN WHEELCHAIR IN ROOM.
--- NOTE | 2016-09-25 13:00 | NUR ---
D/C HOME VIA WHEELCHAIR. CONDITION STABLE.
== END 2016-09-25 13:00 | disposition home or self-care (01) | DRG 190 ==
LOC: D.REHAB 20:55
PROVIDERS: ADMIT Emergency Medicine
DX: J44.1 Chronic obstructive pulmonary disease with (acute) exacerbation (principal); J18.9 Pneumonia, unspecified organism; I13.0 Hypertensive heart and chronic kidney disease with heart failure and stage 1 through stage 4 chronic kidney disease, or unspecified chronic kidney disease; J81.1 Chronic pulmonary edema; I42.9 Cardiomyopathy, unspecified; I50.22 Chronic systolic (congestive) heart failure; N18.9 Chronic kidney disease, unspecified; Z87.891 Personal history of nicotine dependence; E78.5 Hyperlipidemia, unspecified; C61 Malignant neoplasm of prostate; I48.91 Unspecified atrial fibrillation; I25.2 Old myocardial infarction

== ENCOUNTER 2016-10-07 16:11 | Emergency (ER) | payer MEDICARE ==
[2016-09-10 12:24] VITALS: BMI 24.5
[~2016-10-07 16:11] MED LIST changes: +LOPRESSOR25 MG PO
[2016-10-07 17:05] LABS: BASOPHILS 0.2 % (0.0-2.0); EOSINOPHILS 1.7 % (0-7); HEMATOCRIT 38.1 % (42.0-54.0); IMMATURE GRANULOCYTES 0.6 % (0-5); MCHC 31.5 g/dL (31.0-37.0); MCV 88.8 fL (80.0-100.0); MEAN PLATELET VOLUME 9.1 fL (7.4-10.4); MONOCYTES 5.2 % (2-11); NEUTROPHILS 89.3 % (40-80); RBC 4.29 10x6/uL (4.20-6.10); RDW 16.8 % (11.5-14.5); WBC 5.4 10x3/uL (4.8-10.8)
[2016-10-07 17:24] LABS: ALBUMIN 2.7 g/dL (3.4-5.0); ANION GAP 12.9 mmol/L (8-16); BILIRUBIN - TOTAL 0.42 mg/dL (0.2-1.3); CALCIUM 8.5 mg/dL (8.5-10.1); CARBON DIOXIDE 26.7 mmol/L (21.0-32.0); CREATININE - SERUM 1.9 mg/dL (0.6-1.3); PLATELET COUNT 205 10x3/uL (130-400); POTASSIUM - SERUM 5.6 mmol/L (3.5-5.1); PROTEIN - SERUM 6.1 g/dL (6.4-8.2)
[2016-10-07 17:33] LABS: TROPONIN-I 0.038 ng/mL (0.000-0.060)
== END 2016-10-07 19:02 | disposition home or self-care (01) ==
LOC: D.ER 16:11
PROVIDERS: Family Medicine
DX: I50.9 Heart failure, unspecified (principal); N18.9 Chronic kidney disease, unspecified; I24.9 Acute ischemic heart disease, unspecified; J44.9 Chronic obstructive pulmonary disease, unspecified; R00.0 Tachycardia, unspecified

== ENCOUNTER 2016-10-09 17:50 | Emergency (ER) | payer MEDICARE ==
[2016-09-10 12:24] VITALS: BMI 24.5
[2016-10-09 19:34] LABS: BASOPHILS 0.5 % (0.0-2.0); EOSINOPHILS 1.6 % (0-7); HEMATOCRIT 34.4 % (42.0-54.0); HEMOGLOBIN 10.9 g/dL (13.5-17.5); IMMATURE GRANULOCYTES 1.9 % (0-5); LYMPHOCYTES 16.3 % (15-50); MCH 27.9 pg (26.0-34.0); MCHC 31.7 g/dL (31.0-37.0); MONOCYTES 16.8 % (2-11); NEUTROPHILS 62.9 % (40-80); PLATELET COUNT 218 10x3/uL (130-400); RBC 3.91 10x6/uL (4.20-6.10); RDW 16.8 % (11.5-14.5); WBC 3.7 10x3/uL (4.8-10.8)
[2016-10-09 19:53] LABS: ALBUMIN 2.6 g/dL (3.4-5.0); ANION GAP 10.1 mmol/L (8-16); BILIRUBIN - TOTAL 0.42 mg/dL (0.2-1.3); CALCIUM 8.2 mg/dL (8.5-10.1); CREATININE - SERUM 1.9 mg/dL (0.6-1.3); POTASSIUM - SERUM 4.1 mmol/L (3.5-5.1); PROTEIN - SERUM 6.6 g/dL (6.4-8.2)
== END 2016-10-09 20:43 | disposition home or self-care (01) ==
LOC: D.ER 17:50
PROVIDERS: Physician Assistant
DX: R42 Dizziness and giddiness (principal); I50.9 Heart failure, unspecified; J44.9 Chronic obstructive pulmonary disease, unspecified; I12.9 Hypertensive chronic kidney disease with stage 1 through stage 4 chronic kidney disease, or unspecified chronic kidney disease; N18.9 Chronic kidney disease, unspecified

== ENCOUNTER 2016-10-23 23:33 | Inpatient (IN) | payer MEDICARE ==
[~2016-10-23] VITALS: Ht 167.6 cm; Wt 79.5 kg
--- NOTE | ~2016-10-23 | PN ---
PATIENT:HUI FAUST MEDICAL RECORD: [id number] LOCATION:D.ICU D.230 ADMISSION DATE: 10/24/16 PROGRESS NOTE DATE OF SERVICE: 10/25/2016 CODE BLUE NOTE Code blue was called overhead. I came to the patient's bedside immediately. Reportedly, he had breakdown on telemetry just prior to developing a cardiopulmonary arrest. CPR was in progress. The initial rhythm was asystole. This was treated. The patient was then intubated easily with 8.0 endotracheal tube. There was good color change on the CO2 detector. This was an atraumatic intubation. The patient developed PEA and then ventricular fibrillation, all of which were treated. He then developed sinus tachycardia with an adequate blood pressure. He is being transported back to the intensive care unit. TRANSINT:[id number] Voice Confirmation ID: [id number] DOCUMENT ID: [id number] HARPAL IRELAND MD CC: [id number] DICTATION DATE: 10/25/16 0347 MEDICAL EXAMINER: 10/25/16 0841 ADM IN [facility] [address] [place] [address]
[2016-10-24 00:19] LABS: BASOPHILS 0.5 % (0.0-2.0); EOSINOPHILS 0.1 % (0-7); HEMATOCRIT 31.3 % (42.0-54.0); HEMOGLOBIN 9.8 g/dL (13.5-17.5); IMMATURE GRANULOCYTES 0.4 % (0-5); LYMPHOCYTES 7.6 % (15-50); MCH 27.8 pg (26.0-34.0); MCHC 31.3 g/dL (31.0-37.0); MCV 88.9 fL (80.0-100.0); MEAN PLATELET VOLUME 10.7 fL (7.4-10.4); MONOCYTES 7.4 % (2-11); PLATELET COUNT 228 10x3/uL (130-400); RBC 3.52 10x6/uL (4.20-6.10); RDW 17.5 % (11.5-14.5); WBC 14.4 10x3/uL (4.8-10.8)
[2016-10-24 00:37] LABS: ALKALINE PHOSPHATASE 125 U/L (46-116); ALT (SGPT) 94 U/L (10-68); BILIRUBIN - TOTAL 1.75 mg/dL (0.2-1.3); CALC OSMOLALITY 287 mosm/kg (275-300); CARBON DIOXIDE 18.5 mmol/L (21.0-32.0); CHLORIDE - SERUM 105 mmol/L (98-107); CREATININE - SERUM 2.3 mg/dL (0.6-1.3); POTASSIUM - SERUM 4.2 mmol/L (3.5-5.1); PROTEIN - SERUM 7.3 g/dL (6.4-8.2); SODIUM 140 mmol/L (136-145); UREA NITROGEN 30 mg/dL (7-18); eGFR NON AFRICAN AMERICAN 30 mL/min (90-120)
[2016-10-24 00:38] LABS: GLUCOSE 155 mg/dL (74-106)
[2016-10-24 00:58] LABS: CKMB 1.5 U/L (0.0-3.6); CREATINE KINASE 57 UL (21-232)
[2016-10-24 01:01] LABS: TROPONIN-I 0.188 ng/mL (0.000-0.060)
[2016-10-24 03:56] VITALS: BP 128/94; BMI 24.2
[2016-10-24 06:24] LABS: TROPONIN-I 0.18 ng/mL (0.000-0.060)
--- NOTE | 2016-10-24 07:56 | NUR ---
SCHEDULED TYLENOL ADMINISTERED AT THIS TIME. OXYGEN ON 2L VIA NC. ASSESSMENT PERFORMED PER FLOWSHEET. LUNG SOUNDS CLEAR TO ASCULTATION IN ALL LOBES BILATERALLY, BUT PT BREATHING FREQUENTLY WITH USE OF ACCESSORY MUSCLES. SWELLING TO LLE, BUT NOT TENDER, WARM OR RED. PT STATES, "I HAVEN'T BEEN TAKING MY LASIX." AUTO BODY MAN ON AND HR 95 SINUS RHYTHM. DENIES FURTHER NEEDS AT PRESENT TIME. SRX2 WITH BED IN LOWEST POSITION AND WHEELS LOCKED. CALL LIGHT IN REACH, WILL CONTINUE WITH PLAN OF CARE.
[2016-10-24 08:40] VITALS: BP 153/109
[2016-10-24 12:34] VITALS: BP 130/102
[2016-10-24 13:19] LABS: TROPONIN-I 0.194 ng/mL (0.000-0.060)
--- NOTE | 2016-10-24 13:51 | NUR ---
SCHEDULED TYLENOL ADMINISTERED AT THIS TIME. NO CHANGES SINCE INITIAL ASSESSMENT. DENIES NEEDS AT THIS TIME. CALL LIGHT IN REACH, WILL CONTINUE WITH PLAN OF CARE.
[2016-10-24 16:34] VITALS: BP 140/101
[2016-10-24 17:48] LABS: UDS - AMPHET NEGATIVE QUAL (NEGATIVE); UDS - BARB NEGATIVE QUAL (NEGATIVE); UDS - BENZO NEGATIVE QUAL (NEGATIVE); UDS - COCAINE POSITIVE QUAL (NEGATIVE); UDS - METH NEGATIVE QUAL (NEGATIVE); UDS - OPIATE POSITIVE QUAL (NEGATIVE); UDS - PCP NEGATIVE QUAL (NEGATIVE); UDS - THC NEGATIVE QUAL (NEGATIVE)
--- NOTE | 2016-10-24 18:04 | NUR ---
DENIES NEEDS AT PRESENT TIME. CALL LIGHT IN REACH, WILL CONTINUE WITH PLAN OF CARE.
[2016-10-24 19:02] LABS: CREATINE KINASE 452 UL (21-232)
[2016-10-24 19:14] LABS: CKMB 1.1 U/L (0.0-3.6)
--- NOTE | 2016-10-24 20:05 | NUR ---
LYING IN BED WATCHING TV, DENIES NEEDS, SR'S UP, CL IN REACH
[2016-10-24 21:36] VITALS: BP 120/72
[2016-10-25] VITALS (59 sets, daily range): BP systolic 75–147; BP diastolic 52–135
[2016-10-25 03:59] LABS: BASOPHILS 0.2 % (0.0-2.0); EOSINOPHILS 0 % (0-7); HEMOGLOBIN 9.2 g/dL (13.5-17.5); IMMATURE GRANULOCYTES 1.5 % (0-5); LYMPHOCYTES 7.9 % (15-50); MCHC 29.7 g/dL (31.0-37.0); MEAN PLATELET VOLUME 11.9 fL (7.4-10.4); MONOCYTES 6.9 % (2-11); NEUTROPHILS 83.5 % (40-80); RBC 3.29 10x6/uL (4.20-6.10); RDW 17.7 % (11.5-14.5)
[2016-10-25 04:00] LABS: MCV 94.2 fL (80.0-100.0); PLATELET COUNT 116 10x3/uL (130-400); WBC 18.4 10x3/uL (4.8-10.8)
--- NOTE | 2016-10-25 04:10 | NUR ---
TRANSFERRED TO ICU BED IN ROOM 2305 WITH DEFIBRLLATOR ATTACHED AND BEING OXYGENATED VIA AMBU BAG TO OETT-8.0 24CM AT THE LIP. PLACED ONTO CONTINUOUS CARDIAC MONITORING. NSR WITH PAC'S IN THE 70'S. TEMP 96.6-APPLIED BLANKET. BREATHING OVER THE SET RATE ON THE VENT ONCE VENT CONNECTED. VENT SETTINGS : AC-16; 600; 100% FIO2 AND PEEP 5. LEFT AC 20G PIV INTACT WITH BOLUS NS INFUSING FROM CODE. SCD WRAPS PLACED ONTO LE'S BILATERALLY. DUSKY IN COLOR. WEAK BUT PALPABLE PERIPHERAL PULSES. SIDDIQI CATHETER TO GRAVITY-CLOUDY, JAYSON URINE NOTED-MINIMAL IN SIDDIQI COLLECTION BAG. OGT PLACED TO LIWS-THICK DIALLO COLORED GASTRIC SECRETIONS BEING REMOVED.
[2016-10-25 04:23] LABS: ALBUMIN 2.7 g/dL (3.4-5.0); BILIRUBIN - TOTAL 1.08 mg/dL (0.2-1.3); CALCIUM 8.7 mg/dL (8.5-10.1); CREATININE - SERUM 3.5 mg/dL (0.6-1.3); POTASSIUM - SERUM 5.6 mmol/L (3.5-5.1); PROTEIN - SERUM 6.1 g/dL (6.4-8.2)
[2016-10-25 04:24] LABS: ANION GAP 32.1 mmol/L (8-16); CARBON DIOXIDE 9.5 mmol/L (21.0-32.0)
[2016-10-25 04:27] LABS: INR 2.63 (0.85-1.17); PROTIME 28.3 SECONDS (11.6-15.0)
--- NOTE | 2016-10-25 04:30 | NUR ---
MOTHER AND NLVECI-DC-HDY CALLED AND INFORMED OF CONDITION. DR. ARIZA MADE AWARE BY PHONE BY HERON CAIN RN WITH Radha FINLEY RN PRESENT.
--- NOTE | 2016-10-25 04:50 | NUR ---
DR. IRELAND CALLED AND INFORMED OF POST-CODE ABG RESULTS. NEW ORDERS RECEIVED.
--- NOTE | 2016-10-25 05:15 | NUR ---
BICARB GTT STARTED @ 150ML/HR.
[2016-10-25 05:38] LABS: MAGNESIUM - SERUM 2.4 mg/dL (1.8-2.4); PHOSPHOROUS 7.3 mg/dL (2.5-4.9)
--- NOTE | 2016-10-25 06:00 | NUR ---
NSR ON THE MONITOR WITH PAC'S NOTED. B/P IMPROVING. LEVOPHED NOT NEEDED TO START THUS FAR.
--- NOTE | 2016-10-25 12:48 | NUR ---
diprivan started per dr. lara order to slow down resp in 30-40's. and guppy breathing. bilateral lung sounds equal and congested. abd tight with no bowel sounds. ng to low intermitten suction with white milky to yellow drainage check placement and air injected heard in abd. scd on lower legs working well. i started in right posterior forearm after several attempts infusing with 1000cc d5w with 100 meq na bicarb currently at 50 ml hour. levophed started 0920 for systolic blood pressure below 90. currently at 3.2 mg min. diprivan effect at 20 mcg/kg/min. brandon cath patent with very low urine output less than [address] lara and Dr. hernandez notified. monitor sr with occ pac. noted.
[2016-10-25 13:51] LABS: APPEARANCE CLOUDY (CLEAR); BILIRUBIN NEGATIVE (NEGATIVE); COLOR YELLOW (YELLOW); GLUCOSE NEGATIVE (NEGATIVE); KETONE SMALL mg/dL (NEGATIVE); LEUKOCYTE ESTERASE TRACE (NEGATIVE); NITRITE NEGATIVE (NEGATIVE); PROTEIN 1+ mg/dL (NEGATIVE); SPECIFIC GRAVITY 1.025 (1.005-1.020)
[2016-10-25 13:52] LABS: AMORPHOUS SEDIMENT <1+ /lpf (NONE SEEN); BACTERIA MODERATE /hpf (NONE SEEN); EPITHELIAL CELLS 0-5 /hpf (0-5); GRANULAR CAST RARE /lpf (NONE SEEN); MUCUS <1+ /lpf (NONE SEEN); SPERMATOZOA PRESENT /hpf (NONE SEEN)
[2016-10-25 15:22] LABS: CALCIUM 8.1 mg/dL (8.5-10.1); CREATININE - SERUM 4.2 mg/dL (0.6-1.3)
[2016-10-25 15:23] LABS: ANION GAP 25.7 mmol/L (8-16); CARBON DIOXIDE 19.6 mmol/L (21.0-32.0); POTASSIUM - SERUM 4.3 mmol/L (3.5-5.1)
[2016-10-26] VITALS (24 sets, daily range): BP systolic 107–153; BP diastolic 82–105; Ht 167.6 cm; Wt 79.5 kg
[2016-10-26 05:22] LABS: BASOPHILS 0.1 % (0.0-2.0); EOSINOPHILS 0 % (0-7); HEMATOCRIT 25.1 % (42.0-54.0); HEMOGLOBIN 8.2 g/dL (13.5-17.5); IMMATURE GRANULOCYTES 0.7 % (0-5); LYMPHOCYTES 3.4 % (15-50); MCH 28.3 pg (26.0-34.0); MCHC 32.7 g/dL (31.0-37.0); MEAN PLATELET VOLUME 11.5 fL (7.4-10.4); MONOCYTES 3.2 % (2-11); NEUTROPHILS 92.6 % (40-80); PLATELET COUNT 104 10x3/uL (130-400); RDW 17.3 % (11.5-14.5); WBC 18.4 10x3/uL (4.8-10.8)
[2016-10-26 05:30] LABS: APTT 29.4 SECONDS (22.8-39.4); INR 2.48 (0.85-1.17); MCV 86.6 fL (80.0-100.0); PROTIME 26.9 SECONDS (11.6-15.0)
[2016-10-26 05:46] LABS: D-DIMER-QUANTITATIVE 18.77 ug/mLFEU (0.20-0.54)
[2016-10-26 05:50] LABS: ALBUMIN 2.6 g/dL (3.4-5.0); BILIRUBIN - TOTAL 1.52 mg/dL (0.2-1.3); CALCIUM 7.6 mg/dL (8.5-10.1); CREATININE - SERUM 4.7 mg/dL (0.6-1.3); MAGNESIUM - SERUM 2.1 mg/dL (1.8-2.4); PROTEIN - SERUM 5.7 g/dL (6.4-8.2)
[2016-10-26 06:03] LABS: CARBON DIOXIDE 25.6 mmol/L (21.0-32.0); PHOSPHOROUS 4.8 mg/dL (2.5-4.9); POTASSIUM - SERUM 3.6 mmol/L (3.5-5.1); TROPONIN-I 0.678 ng/mL (0.000-0.060)
--- NOTE | 2016-10-26 10:58 | NUR ---
0800 AM ASSESMSENT COMPLETE SEE FLOW SHEET FOR FINDINGS... PT IS ORALLY INTUBATEED AND SEDATED ON VENT.. LEFT AC PIV INFILTRATED FLUIDS CHANGED TO RIGHT ARM PIV... 0830 DR SOLARES AND YAMILETH MILLER IN TO SEE PT FOR RENAL.. UPDATE GIVEN AND ORDER RECIEVED FOR TRIALYSIS CATH PLACEMENT.. 0900 WIHTOUT VISITOR AT THIS TIME.. 1000 DR MEADE IN TO SEE PT... UPDATE IS GIVEN..
--- NOTE | 2016-10-26 14:42 | NUR ---
Patient Name: HUI FAUST Admission Status: ER Accout number: [id number] Admission Date: 10-24-2016 : 1945 Admission Diagnosis: Attending: OSWALDO Current LOS: 2 Anticipated DC Date: TO BE DETERMINED Planned Disposition: TO BE DETERMINED Primary Insurance: MEDICARE A & B Discharge Planning Comments: CM ATTEMPTED TO MEET WITH PT FOR INITIAL ASSESSMENT OF DISCHARGE NEEDS. PT WAS SEDATED ON VENT AT APPROXIMATELY 1300 HOURS. CM TO ATTEMPT ASSESSMENT OF PT AT A LATER TIME. Package Center Supervisor: Miguel Calderon
--- NOTE | 2016-10-26 14:43 | NUR ---
1130 DR ANGELA IN TO SEE PT AND SPOKE WITH DR MEADE IN UNIT... DR KELLEY RETURNED CALL AND CONSULT GIVEN QUERIES ANSWERED.. 1200 [address] TABOR IN TO PLACE TRIALYSIS CATH.. 1245 TRIALYSIS CATH PLACED INTO LEFT IJ AREA.. SOME SWELLING NOTED AND EDGES MARKED WITH SKIN MARKED FOR FURTHUR EVALUATION RE SWELLING AND BLEEDING.. 1330 CXR DONE FOR TRIALYSIS CATH PLACEMENT.. PT REMAINS WITHOUT APPROPRIATE RESPONSE TO COMMANDS WILL ... WIHTOUT FURTHUR SWELLING IN LEFT NECK AREA ATY THIS TIME..
--- NOTE | 2016-10-26 19:00 | NUR ---
REPORT RECIEVED, SHIFT ASSESSMENT COMPLETE, PT IS SEDATED ON VENT, ON 40% FIO2 WITH 97% O2 SAT, CRACKLES HEARD IN B/L UPPER LOBES, DIMINISHED IN B/L LOWER LOBES, S1S2, CM-NSR, PATENT LEFT IJ TRIALYSIS...SEE FLOW SHEET...PATENT OGT TO LIWS WITH BROWN DRAINAGE NOTED, ABDOMEN IS SOFT AND ROUND WITH HYPO BS, PATENT F/C WITH C/Y UOP, EDEMA NOTED IN ALL EXTREMETIES, ALL PPP, VSS, WILL CON'T TO MONITOR
--- NOTE | 2016-10-26 21:10 | NUR ---
NO VISITORS AT THIS TIME, REPOSITIONED FOR COMFORT,
--- NOTE | 2016-10-26 23:00 | NUR ---
REASSESSMENT COMPLETE, NO CHANGES NOTED, PT REPOSITIONED FOR COMFORT, ORAL CARE PROVIDED
[2016-10-27] VITALS (22 sets, daily range): BP systolic 91–147; BP diastolic 58–110
--- NOTE | 2016-10-27 01:00 | NUR ---
REPOSITIONED FOR COMFORT, ORAL CARE PROVIDED
--- NOTE | 2016-10-27 03:00 | NUR ---
REASSESSMENT COMPLETE, NO CHANGES NOTED, PT REPOSITIONED FOR COMFORT, ORAL CARE PROVIDED,
[2016-10-27 03:49] LABS: BASOPHILS 0.1 % (0.0-2.0); EOSINOPHILS 0 % (0-7); HEMATOCRIT 27.5 % (42.0-54.0); HEMOGLOBIN 8.7 g/dL (13.5-17.5); IMMATURE GRANULOCYTES 0.9 % (0-5); MCH 27.4 pg (26.0-34.0); MCHC 31.6 g/dL (31.0-37.0); MCV 86.5 fL (80.0-100.0); MEAN PLATELET VOLUME 11.5 fL (7.4-10.4); MONOCYTES 3.1 % (2-11); NEUTROPHILS 92.9 % (40-80); PLATELET COUNT 112 10x3/uL (130-400); RBC 3.18 10x6/uL (4.20-6.10); RDW 17.5 % (11.5-14.5); WBC 16.8 10x3/uL (4.8-10.8)
[2016-10-27 04:05] LABS: ALBUMIN 2.5 g/dL (3.4-5.0); ANION GAP 18.9 mmol/L (8-16); BILIRUBIN - TOTAL 1.22 mg/dL (0.2-1.3); CALCIUM 8.1 mg/dL (8.5-10.1); CREATININE - SERUM 5.5 mg/dL (0.6-1.3); POTASSIUM - SERUM 3.9 mmol/L (3.5-5.1); PROTEIN - SERUM 5.6 g/dL (6.4-8.2)
--- NOTE | 2016-10-27 05:27 | NUR ---
REPOSITIONED FOR COMFORT, ORAL CARE PROVIDED,
--- NOTE | 2016-10-27 08:11 | OP ---
PATIENT NAME: HUI FAUST MEDICAL RECORD: [id number] :49 LOCATION:D.ICU D.2305 ADMISSION DATE:10/24/16 SURGEON: BRYON TABOR MD DATE OF OPERATION: 10/26/2016 SURGEON: Bryon Tabor MD PREOPERATIVE DIAGNOSES: 1. Renal failure 2. Respiratory failure. 3. Acute exacerbation of chronic obstructive pulmonary disease. POSTOPERATIVE DIAGNOSES: 1. Renal failure. 2. Respiratory failure. 3. Acute exacerbation of chronic obstructive pulmonary disease. PROCEDURE PERFORMED: Emergent Ultrasound-Guided Left internal jugular Trialysis catheter placement. ANESTHESIA: Local. COMPLICATIONS: None. SPECIMENS: None. Case was clean. ESTIMATED BLOOD LOSS: 20 cc. OPERATIVE COURSE: An emergency consent was obtained after discussion with the critical care physician, Dr. Reid and myself. There was no family available. Once a discussion consent was obtained, the patient was placed in the supine position on his ICU bed, a shoulder roll was placed. The bed was placed into Trendelenburg position. The left neck and chest were prepped and draped in typical sterile fashion. Local anesthetic was administered. The ultrasound probe was used to identify the left internal jugular vein and the common carotid artery and Ultrasound-Guided Left internal jugular vein was cannulated. The guidewire was passed. The needle was removed. The skin incision was made with 11-blade scalpel. The dilator to pass the wire in a standard Seldinger fashion. The Trialysis catheter was then passed through the wire in standard Seldinger fashion, secured to the skin using 2-0 nylon suture. All 3 ports were aspirated and flushed with sterile Tegaderm dressing was applied. At the end of the case, all needle and instrument counts were correct. No complications occurred. Immediate post-procedure chest x-ray was performed, which showed appropriate proper placement of the ____ right atrium without pneumothorax. TRANSINT:[id number] Voice Confirmation ID: [id number] DOCUMENT ID: [id number] OPERATIVE REPORT [id number] HUI FAUST BRYON WILLIAM MD at 0811 CC: [id number] DICTATION DATE: 10/26/162139 HAT BAND ATTACHER: 10/27/16 0139 ADM IN [place] [id number] [place] [address]
--- NOTE | 2016-10-27 08:17 | NUR ---
0800 AM ASSESMENT IS COMPLETE SEE FLOW SHEET FOR FINDINGS.. PT CONITNUES SEDATED ON VENT.. DR PALOMINO IN UNIT SEEING PT.. 0815 DR KELLEY IN TO SEE PT ..
--- NOTE | 2016-10-27 09:22 | NUR ---
0900 WITHOUT VISITORS AT THIS TIME.. MEDS GIVEN
--- NOTE | 2016-10-27 10:13 | NUR ---
NUTRITION MONITORING & EVAL CHART REVIEWED. PT REMAINS ON VENT. NEPRO CURRENTLY @ 10 CC/HR WITH GOAL RATE 40 CC/HR. WILL SPEAK WITH NURSING RE:INCREASING TUBE FEED RATE. RD FOLLOWING
--- NOTE | 2016-10-27 11:00 | NUR ---
1000 DR KELLEY IN TO SEE PT.. 1100 FORENSIC DOCUMENT EXAMINER IN TO BEGIN PROCESS FOR OBTAINING AN EEG ON PT
--- NOTE | 2016-10-27 11:11 | NUR ---
Patient Name: HUI FAUST Admission Status: ER Accout number: [id number] Admission Date: 10-24-2016 : 1945 Admission Diagnosis:SHORTNESS OF BREATH Attending: OSWALDO Current LOS: 3 Anticipated DC Date: TO BE DETERMINED Planned Disposition: Jail Facility Primary Insurance: MEDICARE A & B PLANNED EXTERNAL PROVIDER: [facility], MEDICARE REHAB BED Discharge Planning Comments: * Is the patient Alert and Oriented? No 0 * How many steps to enter\\exit or inside your home? 3 0 * PCP NONE 0 * Pharmacy [facility] [place] 0 * Preadmission Environment Home with Family 0 * ADLs Independent 0 * Equipment Cane Oxygen Walker 0 * Other Equipment OXYGEN AT NIGHT ONLY [facility] - MEDICAL EQUIPMENT PROVIDER 0 * List name and contact numbers for known caregivers / representatives who currently or will assist patient after discharge: NATY FAUST, MOTHER, EMILY FAUST, SISTER IN LAW, 0 * Community resources currently utilized None 0 * Please name any agencies selected above. NONE 0 * Additional services required to return to the preadmission environment? Yes * Can the patient safely return to the preadmission environment? No 0 * Has this patient been hospitalized within the prior 30 days at any hospital? No 0 CM ATTEMPTED TO MEET WITH PT IN ROOM, PT STILL ON VENT. CM CALLED PT'S EMERGENCY CONTACT, NATY FAUST, . NATY REPORTS SHE WILL BE 98 YEARS OLD TOMORROW AND IS PT'S MOTHER. NATY REPORTS THAT SHE WILL MAKE PT'S DECISIONS WITH THE HELP OF EMILY FAUST, PT'S SISTER IN LAW, WHO ASSISTS NATY WITH EVERYTHING NOW. CM LEFT CONTACT INFORMATION. CM CALLED EMILY FAUST, WHO REPORTS THAT PT HAS USED DRUGS FOR MANY YEARS AND THE LAST TIME HE WAS ON LIFE SUPPORT, THEY DID NOT EXPECT HIM TO LIVE. PT LIVES WITH FRIENDS GENERALLY AND DOES NOT TELL FAMILY WHERE HE IS LIVING. PT HAS WARRANTS FOR HIS ARRREST FOR FAILURE TO APPEAR AFTER THE LOW PRESSURE KETTLE OPERATOR SENT PT TO [facility] AND PT WENT "AWOL." PT HAD PUT HIMSELF INTO [place] FOR TWO MONTHS AND THE FACILITY HAD APPLIED FOR MEDICAID AFTER MEDICARE DENIED PT'S REHAB CLAIM. PT LEFT THE FACLITY WHEN HE GOT PAID. IF PT GETS BETTER AND NEEDS REHAB, FAMILY WILL CONSIDER [facility]; IF PT GETS WORSE AND NEEDS HOSPICE, FAMILY WILL CONSIDER [facility]. CM PROVIDED CM CONTACT INFORMATION. PT'S MOTHER, NATY FAUST, , REPORTS THAT SHE WILL MAKE DECISIONS FOR PT WHILE HE IS NOT ABLE. NATY RELIES ON HER DAUGHTER IN LAW, EMILY FAUST TO ASSIST HER AND REPORTS IT TO BE OK TO PROVIDE ALL INFORMATION TO EMILY AT [phone]. FAMILY WOULD CONSIDER [facility] IF PT REQUIRES DETENTION PLACEMENT. FAMILY WOULD CONSIDER [facility] IF HOSPICE IS NEEDED. CM TO FOLLOW AND ASSIST NEEDED. Service Developer: Miguel Calderon
--- NOTE | 2016-10-27 18:14 | NUR ---
1200 WIOUT VISITORS AT THIS TIME.. [address] SCAN VIA BED WITH RESPIATORY PORTABLE VENT.. 1515 RETURNED FROM T SCAN.. 1630 PARTIL BATH AND LINEN CHANGE DONE.. PIV BILATERAL ARMS DCd A THIS TIME.. TRIALYSIS CATH IN USE FOR FLUID INFUSION.. DIPRIVAN HAS BEEN TURNED OFF SINCE DR KELLEY IN UNIT THIS AM PT REMAINS OBTUNDED AND WITH LIMITED RESPONSES.. REMAINS ORALLY INTUBATED ON THE VENT 1800 VISITORS AT THE BEDSIDE.. UPDATE IS GIVEN.. VISITORS ASKING ABOUT PT GLASSES AND GHAZALA
--- NOTE | 2016-10-27 19:00 | NUR ---
REPORT RECIEVED, SHIFT ASSESSMENT COMPLETE, PT IS ON VENT, 40% FIO2 WITH 98% O2 SAT, WHEEZES HEARD IN B/L UPPER LOBES, DIMINISHED IN B/L LOWER LOBES, S1S2, CM-NSR, PATENT LEFT IJ TRIALYSIS WITH D5 1/N NS INFUSING VIA PUMP, PATENT OGT WITH NEPRO INFUSING VIA PUMP, ABDOMEN IS DISTENDED WITH HYPO BS, PATENT F/C WITH YELLOW UOP, EDEMA NOTED IN ALL EXTREMETIES, ALL, PPP, VSS, WILL CON'T TO MONITOR
--- NOTE | 2016-10-27 21:00 | NUR ---
NO VISITORS AT THIS TIME, REPOSITIONED FOR COMFORT, ORAL CARE PROVIDED,
--- NOTE | 2016-10-27 23:11 | NUR ---
REASSESSMENT COMPLETE, NO CHANGES NOTED, REPOSITIONED FOR COMFORT, ORAL CARE PROVIDED,
[2016-10-28] VITALS (24 sets, daily range): BP systolic 102–144; BP diastolic 82–113
--- NOTE | 2016-10-28 01:15 | NUR ---
REPOSITIONED FOR COMFORT, ORAL CARE PROVIDED
--- NOTE | 2016-10-28 03:26 | NUR ---
RAD IN ROOM FOR DAILY CXR
[2016-10-28 04:06] LABS: HEMOGLOBIN 10.6 g/dL (13.5-17.5); MCH 27.5 pg (26.0-34.0); MCHC 31.2 g/dL (31.0-37.0); MCV 88.3 fL (80.0-100.0); MEAN PLATELET VOLUME 11.7 fL (7.4-10.4); PLATELET COUNT 132 10x3/uL (130-400); RBC 3.85 10x6/uL (4.20-6.10); RDW 17.7 % (11.5-14.5)
[2016-10-28 04:27] LABS: ALBUMIN 2.8 g/dL (3.4-5.0); BILIRUBIN - TOTAL 1.41 mg/dL (0.2-1.3); CALCIUM 8.4 mg/dL (8.5-10.1); CARBON DIOXIDE 25.5 mmol/L (21.0-32.0); PROTEIN - SERUM 6.3 g/dL (6.4-8.2)
[2016-10-28 04:29] LABS: POTASSIUM - SERUM 4.5 mmol/L (3.5-5.1)
[2016-10-28 04:46] LABS: LYMPHOCYTES 6 % (15-50); NEUTROPHILS 90 % (40-80); PLATELET ESTIMATE NORMAL; PLATELET MORPHOLOGY GIANT PLTS PRESENT
--- NOTE | 2016-10-28 05:13 | NUR ---
COMPLETE BATH AND LINEN CHANGE
--- NOTE | 2016-10-28 19:00 | NUR ---
REPORT RECEIVED AND ASSESSMENT COMPLETED. PT WEARING RESTRAINTS DURING TIME OF ASSESSMENT; HOWEVER, D/C'D DUE TO PT STATUS. WITH NO SEDATION, PT IS UNAROUSABLE. WILL CONTINUE TO MONITOR CLOSELY. VSS.
--- NOTE | 2016-10-28 21:00 | NUR ---
NO CHANGES IN STATUS AT THIS TIME. VSS. WILL CONTINUE TO MONITOR.
--- NOTE | 2016-10-28 23:00 | NUR ---
REASSESSMENT COMPLETED. SEE FLOWSHEET FOR FULL DETAILS. PT REMAINS UNAROUSABLE. VSS. WILL MONITOR.
[2016-10-29] VITALS (23 sets, daily range): BP systolic 92–168; BP diastolic 71–101
--- NOTE | 2016-10-29 01:00 | NUR ---
NO CHANGES IN STATUS AT THIS TIME.
--- NOTE | 2016-10-29 03:00 | NUR ---
reassessment completed. see flowsheet for full details.
[2016-10-29 04:55] LABS: BASOPHILS 0.2 % (0.0-2.0); EOSINOPHILS 0 % (0-7); HEMATOCRIT 36.2 % (42.0-54.0); HEMOGLOBIN 11.7 g/dL (13.5-17.5); IMMATURE GRANULOCYTES 1.5 % (0-5); LYMPHOCYTES 4.7 % (15-50); MCH 28.7 pg (26.0-34.0); MCHC 32.3 g/dL (31.0-37.0); MCV 88.9 fL (80.0-100.0); MEAN PLATELET VOLUME 11.8 fL (7.4-10.4); MONOCYTES 1.7 % (2-11); NEUTROPHILS 91.9 % (40-80); PLATELET COUNT 117 10x3/uL (130-400); RBC 4.07 10x6/uL (4.20-6.10); RDW 18.1 % (11.5-14.5); WBC 20.3 10x3/uL (4.8-10.8)
--- NOTE | 2016-10-29 05:00 | NUR ---
no changes at this time. vss. will monitor
[2016-10-29 05:11] LABS: ALBUMIN 2.6 g/dL (3.4-5.0); ANION GAP 17.8 mmol/L (8-16); BILIRUBIN - TOTAL 1.23 mg/dL (0.2-1.3); CARBON DIOXIDE 25.6 mmol/L (21.0-32.0); CREATININE - SERUM 5.2 mg/dL (0.6-1.3); POTASSIUM - SERUM 4.4 mmol/L (3.5-5.1)
--- NOTE | 2016-10-29 09:25 | NUR ---
0800 AM ASSESMENY IS COMPLETE SEE FLOW SHEET FOR FINDINGS.. PT IS ORALLY INTUBATED TO VENT.. OGT TO TUBE FEEDING.. THERE IS A TRIALYSIS CATHETER IN THE LEFT IJ.. DR PALOMINO IS IN UNIT AND SEEING PT AT THIS TIME.. 0900 WITHOUT VISITORS MEDS GIVEN..REPOSITIONED..
--- NOTE | 2016-10-29 09:59 | NUR ---
0945 DR MEADE IN TO SEE PT..
--- NOTE | 2016-10-29 10:35 | NUR ---
Nutrition Follow Up: Chart reviewed. Pt remains on vent. TF of Nepro @ 20 ml/hr with goal of 40 ml/hr. I>O. Wt stable. No BM since admit. Labs noted - BUN, Cr, Glucose elevated. Meds noted including Humalog, Levophed, Solu-Medrol, Diprivan. Rec continue current TF regimen. Advance as tolerated to goal rate of 40 ml/hr. RD following.
--- NOTE | 2016-10-29 14:56 | NUR ---
1200 WIHTOUT VISITORS AT THIS TIME.. 1300 DILAYSIS IN TO SET UP FOR DIALYSIS AT THE BEDSIDE.. 1400 DIALYSIS STARTED .. 1500 DIALYSIS CONTINUES..
--- NOTE | 2016-10-29 16:57 | NUR ---
1600 DIALYSIS CONTINUES ATY THIS TIME..
--- NOTE | 2016-10-29 17:20 | NUR ---
Mr. Giron had bedside hemodialysis today via his left IJ Trialysis from 1406 until 1706. Average blood flow was 400 mls/minute. Net fluid removed was only 1000 mls due to significant hypotension. Post vital signs were: B/P:116/73, HR:86, Temp:97.5, Resps:18.
--- NOTE | 2016-10-29 18:16 | NUR ---
1700 DIALYSIS IS COMPLETE .. 1730 BS DONE AND MEDS GIVEN NEW BAG TUBE FEEDING HUNG .. I AND O COMPLETE... 1800 WITHOUT VISITOR AT THIS TIME..
--- NOTE | 2016-10-29 19:17 | NUR ---
REPORT RECIEVED. ASSESS COMPLETE PER FLOW SHEET REFER TO FLOW SHEET. O2 VIA VENT 40% FIO2 ORAL ENDOTRACH CARE ADM. O2 SAT 98%. RESPONDS TO PAINFUL STIMULI. REPOSIITONED ON L SIDE. NEEDS MET. VSS. WILL CONTNIUE TO MONITOR.
--- NOTE | 2016-10-29 21:00 | NUR ---
NO VISITORS AT THIS TIME, REPOSITIONED FOR COMFORT, ORAL CARE PROVIDED,
--- NOTE | 2016-10-29 23:00 | NUR ---
REASSESSMENT COMPLETE, NO CHANGES NOTED, PT REPOSITIONED FOR COMFORT, ORAL CARE PROVIDED, VSS, WILL CON'T TO MONITOR
[2016-10-30] VITALS (21 sets, daily range): BP systolic 88–146; BP diastolic 45–94
--- NOTE | 2016-10-30 01:00 | NUR ---
COMPLETE BATH AND LINEN CHANGE
--- NOTE | 2016-10-30 03:00 | NUR ---
REASSESSSMENT COMPLETE, NO CHANGES NOTED, REPOSITIONED FOR COMFORT, ORAL CARE PROVIDED,
[2016-10-30 04:22] LABS: BASOPHILS 0.2 % (0.0-2.0); EOSINOPHILS 0 % (0-7); HEMATOCRIT 38.4 % (42.0-54.0); HEMOGLOBIN 12.2 g/dL (13.5-17.5); IMMATURE GRANULOCYTES 1.6 % (0-5); LYMPHOCYTES 4.7 % (15-50); MCH 28.2 pg (26.0-34.0); MCHC 31.8 g/dL (31.0-37.0); MCV 88.7 fL (80.0-100.0); MEAN PLATELET VOLUME 12.1 fL (7.4-10.4); MONOCYTES 1.3 % (2-11); NEUTROPHILS 92.2 % (40-80); PLATELET COUNT 114 10x3/uL (130-400); RBC 4.33 10x6/uL (4.20-6.10); RDW 18.2 % (11.5-14.5); WBC 21.7 10x3/uL (4.8-10.8)
[2016-10-30 04:39] LABS: ALBUMIN 2.6 g/dL (3.4-5.0); ANION GAP 15.4 mmol/L (8-16); BILIRUBIN - TOTAL 1.11 mg/dL (0.2-1.3); CALCIUM 7.9 mg/dL (8.5-10.1); CARBON DIOXIDE 26.9 mmol/L (21.0-32.0); MAGNESIUM - SERUM 2.2 mg/dL (1.8-2.4); PHOSPHOROUS 6.8 mg/dL (2.5-4.9); POTASSIUM - SERUM 4.3 mmol/L (3.5-5.1)
--- NOTE | 2016-10-30 05:18 | NUR ---
REPOSITIONED ON L SIDE. VSS. NO NEW CHANGES. ORAL ENDOTRACH CARE ADM. NEEDS MET
--- NOTE | 2016-10-30 19:15 | NUR ---
RECEIVED CARE OF PT, ASSESSMENT PER FLOWSHEET. PT INTUBATED ON VENT, NO PHYSICAL RESPONSE TO STIMULI NOTED, OGT PLACEMENT VERIFIED WITH SMALL AIR BOLUS, SIDDIQI CATH PATENT, PPP, HR 82 AND SR WITH PAC'S NOTED ON CM. PT MOTHER AND SISTER IN LAW OUTSIDE OF ROOM, DESIRE TO TERMINALLY EXTUBATE VERBALIZED, ALL QUESTIONS ANSWERED.
--- NOTE | 2016-10-30 19:19 | NUR ---
DR MEADE PAGED REGARDING FAMILY'S DESIRE TO TERMINALLY EXTUBATE, ORDERS RECEIVED.
--- NOTE | 2016-10-30 19:35 | NUR ---
DR KELLEY NOTIFIED OF FAMILY'S INTENT TO TERMINALLY EXTUBATE, NO ORDERS RECEIVED.
--- NOTE | 2016-10-30 19:41 | NUR ---
DR GERMAIN NOTIFIED OF FAMILY'S DECISION TO TERMINALLY EXTUBATE, NO ORDERS RECEIVED AT THIS TIME.
--- NOTE | 2016-10-30 20:33 | NUR ---
PRN 4MG MORPHINE ADMINISTERED VIA SIVP PER MD ORDER.
--- NOTE | 2016-10-30 20:35 | NUR ---
PT EXTUBATED TO 2L NC, OGT D/C'D WITH TIP INTACT, VSS, WILL MONITOR.
[2016-10-31] VITALS (11 sets, daily range): BP systolic 108–142; BP diastolic 84–114
--- NOTE | 2016-10-31 01:10 | NUR ---
PT REPOSITIONED FOR COMFORT SUPPORTED WITH PILLOWS, ORAL CARE PROVIDED, VSS.
--- NOTE | 2016-10-31 03:32 | NUR ---
RESPIRATORY RATE IN UPPER 20'S AND LOW 30'S WITH RETRACTIONS NOTED, PRN MORPHINE 4 MG ADMINISTERED VIA SIVP PER MD ORDER. WILL MONITOR.
--- NOTE | 2016-10-31 05:15 | NUR ---
PT REPOSITIONED FOR COMFORT, ORAL CARE PROVIDED, WILL CONT POC.
--- NOTE | 2016-10-31 06:31 | NUR ---
PRN MORPHINE 4MG ADMINISTERED VIA SIVP PER MD ORDER FOR DYPNEA AND RETRACTIONS WITH BREATHS, WILL MONITOR.
--- NOTE | 2016-10-31 06:49 | NUR ---
PT [id number] UPDATED REGARDING PT STATUS, FAMILY WISHES TO PROCEED WITH [facility] AT THIS TIME.
--- NOTE | 2016-10-31 08:06 | NUR ---
LYING IN BED AT THIS TIME. NO ACUTE DISTRESS NOTED. PT DOES NOT WAKE UP TO VERBAL STIMULATION AND DID NOT RESPOND WHILE PERFORMING ASSESSMENT INCLUDING ASSESSING PUPILS. TURNED Q2H. WILL CONTINUE PLAN OF CARE.
--- NOTE | 2016-10-31 09:50 | NUR ---
VSS. NO ACUTE DISTRESS NOTED. TURNED Q2H. WILL CONTINUE PLAN OF CARE.
--- NOTE | 2016-10-31 10:01 | NUR ---
Order received for hospice consult. CM noted previous cm note that family has selected [facility] if hospice is needed. CM attempted to reach Massiel Giron @ [phone] and left a voice message requesting a reutrn call. CM contacted David Taylor with [facility] with referral infomratoin. David to contact nurse human capital consultant and have her come evaluate patient for hospice serivces. Ruthie ROLON notifed of this infomation. Rosemary Cobian RN, [facility] [phone]
--- NOTE | 2016-10-31 10:48 | NUR ---
FELICIA FROM [facility] ON UNIT TO [facility]I PT AT THIS TIME. NOTED SHE STATED SHE MADE SOME ATTEMPTS TO CONTACT FAMILY AND COUND NOT GET AN ANSWER. WILL TRY AGAIN LATER. FELICIA ASKED THIS NURSE TO CALL HER WHEN PTS FAMILY CALLS UNIT BACK AT [phone]. NO ACUTE DISTRESS NOTED AT THIS TIME. WILL CONTINUE PLAN OF CARE.
--- NOTE | 2016-10-31 11:34 | NUR ---
PT. STRUGGLEING TO BREATH. USING ACCESSORY MUSCLES. MORPHINE ADMN. PER ORDERS.
--- NOTE | 2016-10-31 11:36 | NUR ---
SMALL INCONTINENT BOWEL MOVEMENT NOTED AT THIS TIME, BROWN LOOSE. PT TURNED AT THIS TIME. THOMAS CARE PERFORMED VIA TOTAL ASSIST X 2 PERSON. ALSO AT THIS TIME PRN MORPHINE ADMIN FOR AIR HUNGER. SUCTIONING ALSO PROVIDED AT THIS TIME. NO ACUTE DISTRESS NOTED. WILL CONTINUE PLAN OF CARE.
--- NOTE | 2016-10-31 13:16 | NUR ---
FAMILY HERE AT THIS TIME. UPDATE GIVEN. CALLED FELICIA WITH HOSPICE TO NOTIFY SO PAPERWORK CAN BE SIGNED SO PT CAN BE EVALUATED FOR HOSPICE. NO ACUTE DISTRESS NOTED. WILL CONTINUE PLAN FO CARE.
--- NOTE | 2016-10-31 13:57 | NUR ---
HOSPICE NURSE FELICIA ON UNIT AT THIS TIME SPEAKING WITH PT FAMILY. NO ACUTE DISTRESS NOTED. PT TURNED Q2H. WILL CONTINUE PLAN OF CARE.
--- NOTE | 2016-10-31 16:13 | NUR ---
NOTED PT HAS BEEN ACCEPTED INTO INPATIENT HOSPICE BY [facility]. ORDERS RECIEVED. NO ACUTE DISTRESS NOTED AT THIS TIME. PT TURNED Q2H. WILL CONTINUE PLAN OF CARE.
--- NOTE | 2016-11-03 06:59 | EEG ---
PATIENT:HUI FAUST DATE OF SERVICE: 10/24/16 MEDICAL RECORD: [id number] DATE OF : 49 LOCATION:D.230 D.ICU ADMISSION DATE: 10/24/16 REFERRING PHYSICIAN: INTERPRETING PHYSICIAN: ROSY KELLEY MD DATE OF SERVICE: 10/27/2016 Electroencephalographic Report Referred as an inpatient by myself, currently in room 2305. ELECTROENCEPHALOGRAM: NUMBER: [id number]. DATE OF EXAMINATION: 10/27/2016 at 11:15 a.m. TECHNICAL DATA: This electroencephalographic recording consists of approximately 20 minutes of data collection utilizing the international 10/20 system of electrode placement and both referential and non-referential montages. Sixteen channels of electrocerebral recording are accompanied by a 17th channel dedicated to the electrocardiographic rhythm and 2 channels of electromyographic recording. Recording is performed entirely in the comatose state utilizing activation by photic stimulation as well as both verbal and tactile stimulation. ELECTROENCEPHALOGRAPHIC DATA: The entirety of the recorded electrocerebral activity is performed in the comatose state. Electromyographic artifact is nearly absent. Rapid eye movements are not seen. This is a very low voltage recording with no appreciable electrocerebral activity observed and a sensitivity less than 3 microvolts per millimeter. Electrocerebral activity observed with a sensitivity of 3 microvolts per millimeter, consists of low voltage, irregular, generalized and symmetric 1-2 Hz delta activity that occurs for periods of 1-4 seconds approximately once every 1-2 pages. The intervening electrocerebral recording reveals no other electrocerebral activity with the exception of occasional sharply contoured waveforms after going slow component, maximal on the scalp recording in the right frontotemporal region at F4 and T4. No clinical or electrocerebral seizures were identified. Photic stimulation induces no change in the recorded electrocerebral activity. No focal slowing is identified. Tactile stimulation induces no change in the recorded electrocerebral activity. INTERPRETATION: 1. Continuous slow, generalized (coma). 2. Very low voltage recording. 3. Sharp waves, focal, right frontotemporal. This electroencephalographic recording is indicative of a very severe diffuse encephalopathy and gives evidence of an epileptogenic focus of right frontotemporal origin, maximal on the scalp recording at F4 and T4. TRANSINT:[id number] Voice Confirmation ID: [id number] DOCUMENT ID: [id number] ELECTROENCEPHALOGRAM REPORT [id number] HUI FAUST DONALD P MD at 0659 CC: [id number] DICTATION DATE: 10/28/1658 EXPLOSIVES ENGINEER: 10/28/16 0712 DIS IN 10/31/16 [facility] [address] [place] [address]
--- NOTE | 2016-11-06 10:19 | CN ---
PATIENT NAME:HUI GIRON MEDICAL RECORD: [id number] : 49 LOCATION:[id number] ADMIT DATE: 10/24/16 ACCOUNT: [id number] CONSULTING PHYSICIAN: STEVEN ROGERS MD REFERRING PHYSICIAN: CHRIS ARIZA MD DATE OF CONSULTATION: 10/25/2016 Cardiology Consultation DIAGNOSES: 1. Elevated troponin. 2. Coronary artery disease. 3. Status post respiratory arrest. 4. Chronic obstructive pulmonary disease. 5. Cocaine and meth abuse. 6. Cardiomyopathy. 7. Coronary artery disease. 8. Medical noncompliance. HISTORY OF PRESENT ILLNESS: Mr. Giron has a history of COPD and severe lung disease. He supposedly did some meth, presented to the hospital with shortness of breath. He had no chest pain. He did have a positive troponin. His EKG is with no changes. Does have a history of coronary artery disease, previous PTCA stent. He has a history of cardiomyopathy, last ejection fraction was August of this year at 40%. Overnight, he became more short of breath and had a respiratory arrest requiring intubation. He is now on pressors with systolic blood pressure in the 80s, heart rate of 108, it is sinus. He has not had any arrhythmias. PHYSICAL EXAMINATION: GENERAL APPEARANCE: Well-nourished, well-developed, appears stated age. Level of distress, comfortable. PSYCHIATRIC: Mental status, alert, normal affect. Orientation, oriented to time, place and person. EYES: Lids and conjunctiva, noninjected. No discharge, no pallor. ENT: Lips, teeth, gums, normal dentition. Oropharynx, no cyanosis, no pallor. NECK: Carotid arteries, bilateral normal upstroke, no bruits, no thrills. JUGULAR VEINS: No jugular venous pressure or distention. CERVICAL LYMPH NODES: Nontender, nonenlarged. THYROID: Not enlarged. Nontender. No nodules. LUNGS: Respiratory effort, unlabored. CHEST: Normal curvature. No thoracic deformity. No chest wall tenderness. Percussion, resonant. Auscultation, clear. No wheezes, no rales, no rhonchi. CARDIOVASCULAR: Precordial exam, nondisplaced. No heaves or pericardial thrills. Rate and rhythm, regular. Heart sounds, normal S1, normal S2. No S3, no gallop, no rub. Systolic murmur, not heard. Diastolic murmur, not heard. EXTREMITIES: No cyanosis, no edema. Peripheral pulses, full and equal in all extremities, except as noted. No bruits appreciated. ABDOMEN: Soft, nondistended. Normal aorta. No bruit. Nontender. No masses. Liver, nontender, no hepatomegaly. Spleen, nontender, no splenomegaly. MUSCULOSKELETAL: No joint tenderness. No joint swelling. No erythema. NEUROLOGICAL: Normal gait, normal strength, normal tone. SKIN: Warm and dry. OVERALL IMPRESSION: Status post respiratory arrest. He appears to be CONSULT REPORT [id number] HUI GIRON relatively stable from a cardiac standpoint. Most likely, the increased troponin with demand ischemia from substance abuse as well as respiratory failure. At this time, no discrete cardiac, no further cardiac workup or treatment is necessarily only supportive care with the pressors. TRANSINT:[id number] Voice Confirmation ID: [id number] DOCUMENT ID: [id number] STEVEN ROGERS MD at 1019 CC: [id number] DICTATION DATE: 10/25/16 1119 PADDING GLUER: 10/25/16 1145 DIS IN 10/31/16 [facility] [address] [place] [address]
== END 2016-10-31 17:23 | disposition hospice, inpatient (51) | DRG 207 ==
LOC: D.ER 23:33 → D.MS 10-24 01:58 → D.ICU 10-24 01:58
PROVIDERS: Family Medicine; Internal Medicine Nephrology; Internal Medicine Pulmonary Disease; ADMIT Family Medicine
PROC: 5A12012 Performance of Cardiac Output, Single, Manual (ICD-10-PCS; principal; 2016-10-25)
PROC: 5A1955Z Respiratory Ventilation, Greater than 96 Consecutive Hours (ICD-10-PCS; 2016-10-25)
PROC: 0BH17EZ Insertion of Endotracheal Airway into Trachea, Via Natural or Artificial Opening (ICD-10-PCS; 2016-10-25)
PROC: 02H633Z Insertion of Infusion Device into Right Atrium, Percutaneous Approach (ICD-10-PCS; 2016-10-26)
PROC: B244ZZZ Ultrasonography of Right Heart (ICD-10-PCS; 2016-10-26)
PROC: 5A1D60Z (ICD-10-PCS; 2016-10-28)
DX: J96.01 Acute respiratory failure with hypoxia (principal); I50.23 Acute on chronic systolic (congestive) heart failure; J69.0 Pneumonitis due to inhalation of food and vomit; I21.4 Non-ST elevation (NSTEMI) myocardial infarction; K72.00 Acute and subacute hepatic failure without coma; G93.49 Other encephalopathy; J44.1 Chronic obstructive pulmonary disease with (acute) exacerbation; I13.0 Hypertensive heart and chronic kidney disease with heart failure and stage 1 through stage 4 chronic kidney disease, or unspecified chronic kidney disease; N18.4 Chronic kidney disease, stage 4 (severe); E87.2 Acidosis; G93.1 Anoxic brain damage, not elsewhere classified; I24.8 Other forms of acute ischemic heart disease; I42.9 Cardiomyopathy, unspecified; N17.9 Acute kidney failure, unspecified; E78.5 Hyperlipidemia, unspecified; D63.1 Anemia in chronic kidney disease; I25.10 Atherosclerotic heart disease of native coronary artery without angina pectoris; E87.5 Hyperkalemia; E83.51 Hypocalcemia; D69.6 Thrombocytopenia, unspecified; D50.9 Iron deficiency anemia, unspecified; Z91.19 Patient's noncompliance with other medical treatment and regimen; F15.10 Other stimulant abuse, uncomplicated; F14.10 Cocaine abuse, uncomplicated; R91.8 Other nonspecific abnormal finding of lung field; Z85.46 Personal history of malignant neoplasm of prostate; Z95.5 Presence of coronary angioplasty implant and graft; Z72.0 Tobacco use; I08.1 Rheumatic disorders of both mitral and tricuspid valves

== ENCOUNTER 2016-10-31 15:59 | Inpatient (IN) | payer OTHER ==
[~2016-10-31] VITALS: Ht 167.6 cm; Wt 79.5 kg
[2016-10-31 16:47] VITALS: BP 111/89; Ht 167.6 cm; Wt 79.5 kg
--- NOTE | 2016-10-31 16:58 | NUR ---
CALL IN CODE IS "MOTHER" PER PT MOTHER REQUEST. PT NOTED TRANSFERRED TO INPATIENT HOSPICE AT THIS TIME. NO ACUTE DISTRESS NOTED. TURNED Q2H. WILL CONTINUE PLAN OF CARE.
[2016-10-31 17:00] VITALS: BP 112/94
--- NOTE | 2016-10-31 17:26 | NUR ---
NOTED PT IS NOW ADMITTED UNDER INPATIENT HOSPICE. ORDERS HAVE BEEN RECIEVED AND PROCESSED.
[2016-10-31 18:00] VITALS: BP 135/93
--- NOTE | 2016-10-31 18:09 | NUR ---
NOTED PT TO TRANSFER TO ROOM 2216, WILL CALL REPORT SHORTLY.
--- NOTE | 2016-10-31 18:15 | NUR ---
PT REPORT REC'D FROM GONZALES SALAZAR. ROOM 2216 READY AND AWAITING PT ARRIVAL.
--- NOTE | 2016-10-31 18:19 | NUR ---
REPORT GIVEN TO CLARIBEL AT THIS TIME. CALLED PT FAMILY, EMILY, TO NOTIFY THAT PT IS MOVING TO A DIFFERENT ROOM. DID NOT RECIEVE ANSWER, VOICEMAIL LEFT. WILL TRANSFER PT SHORTLY VIA BED.
--- NOTE | 2016-10-31 18:28 | NUR ---
PT TRANSFERRED TO 2216 AT THIS TIME VIA BED ACCOMPANIED BY HOSPITAL STAFF. NO ACUTE DISTRESS NOTED. NO FURTHER ACTIONS.
--- NOTE | 2016-10-31 18:30 | NUR ---
PT REC'D TO ROOM VIA BED. ACCOMPANIED BY ICU STAFF. PT SOMNELENT. OPENS EYES TO PAINFUL STIMULUS. DRESSING TO L TRIALYSIS PORT CDI. PT HAVING DIFFICULTY BREATHING. SUCTION PERFORMED AND THICK BLOODY MUCUS PULLED. DIME SIZE PURPLE BLISTER TO L FOREARM. GENERALIZED EDEMA TO ALL EXTREMITIES. SIDDIQI CATHETER DRAINING CLEAR CONCENTRATED URINE TO GRAVITY. PT REPOSITIONED IN BED. BED LOW, CALL LIGHT IN REACH, CPOC.
--- NOTE | 2016-10-31 18:31 | NUR ---
NOTED PT DID NOT HAVE ANY PERSONAL ITEMS. ALL PERSONAL ITEMS HAD BEEN TAKEN HOME BY FAMILY PREVIOUSLY.
[2016-10-31 19:01] VITALS: BP 175/108
--- NOTE | 2016-10-31 19:30 | NUR ---
RECIEVED SHIFT REPORT. PT IS LYING IN BED. PT IS ONLY RESPONSIVE TO DEEP STIMULI. O2 @ 2 PER NASAL CANNULA. SIDDIQI IS DRAINING URINE BY GRAVITY. SCD'S ON. ISOLATION PRECAUTIONS IN PLACE. PT REQUIRES ASSISTANCE TURNING IN BED FOR COMFORT AND SKIN CARE. PT SHOWS NO SIGN OF PAIN ON PEÑA BAKERS. WILL CONTINUE TO MONITOR. SIDE RAILS ARE UP X 2. BED IS IN LOWEST POSITION. BED ALARM IS ON FOR SAFETY. CALL LIGHT IS WITHIN REACH.
--- NOTE | 2016-10-31 21:06 | NUR ---
SHIFT ASSESSMENT COMPLETED. PRN ATROPINE DROPS ADMINISTERED FOR SECRETIONS. ORDERED SCOPALAMINE PATCH PLACED BEHIND LEFT EAR. SIDE RAILS X 2. BED LOW. CALL LIGHT IN REACH.
--- NOTE | 2016-11-01 07:15 | NUR ---
REPORT RECEIVED FROM RETURNS SUPERVISOR NURSE. CALL LIGHT IN REACH.
[2016-11-01 08:16] VITALS: BP 118/78
--- NOTE | 2016-11-01 09:25 | NUR ---
ASSESSMENT COMPLETED. SUCTIONED PER GIA. SCDs TO BLE. BED ALARM ON. CALL LIGHT IN REACH. WILL CONTINUE WITH PLAN OF CARE.
--- NOTE | 2016-11-01 10:50 | NUR ---
SUCTIONED PATIENT WITH YANKER D/T GURGLING CAUSED BY EXCESS SPUTUM.
--- NOTE | 2016-11-01 12:46 | NUR ---
PATIENT IS UNRESPONSIVE. MOUTH FULL OF BROWN SPUTUM, DRAINING OUT OF LEFT SIDE OF MOUTH, ONTO CVL DRESSING AND BOTTOM SHEET OF BED. SUCTIONED WITH YONKER. CLEANED HIS FACE WITH A WASH CLOTH. WITH ASSIST FROM TEXTILE SUPERVISOR CHANGED BOTTOM SHEET. TURNED PATIENT TO HIS RIGHT SIDE. POSITIONED WITH PILLOWS. BILATERAL LEGS ELEVATED. SCDS TO BILATERAL LEGS. BED IN LOWEST POSITON, CALL LIGHT IN REACH. BED RAILS UP X'S 2. BED ALARM ON. PATIENT IS RECIEVING OXYGEN VIA NASAL CANNULA AT 2L/MIN. CHANGED CVL DRESSING.
--- NOTE | 2016-11-01 14:40 | NUR ---
LYING IN BED WITH EYES CLOSED. RESP EVEN AND UNLABORED. CALL LIGHT IN REACH.
--- NOTE | 2016-11-01 16:10 | NUR ---
CALLED AND SPOKE WITH PATIENT'S MOTHER ABOUT HIPAA POLICY. PASSWORD OBTAINED AND PLACED IN COMPUTER.
--- NOTE | 2016-11-01 18:33 | NUR ---
NO CHANGES IN INITIAL ASSESSMENT. BED ALARM ON. WILL CONTINUE WITH PLAN OF CARE.
--- NOTE | 2016-11-01 19:25 | NUR ---
RECIEVED SHIFT REPORT. PT IS LYING IN BED. PT DOES NOT AROUSE BUT TO DEEP STIMULI. PT DOES NOT SPEAK. IV IS PATENT AND FLUIDS ARE RUNNING PER ORDER. SIDDIQI IS DRAINING URINE BY GRAVITY. O2 @ 2 PER NASAL CANNULA. ISOLATION PRECAUTIONS IN PLACE. PT REQUIRES ASSISTANCE TURNING IN BED FOR COMFORT AND SKIN CARE. PT HAS SHUTTLE PREPARATION SUPERVISOR BUT NO SIGNS OF PAIN OR DISCOMFORT AT THIS TIME. WILL CONTINUE TO MONITOR. SIDE RAILS ARE UP X 2. BED IS IN LOWEST POSITION. BED ALARM IS ON FOR SAFETY. CALL LIGHT IS IN REACH.
[2016-11-01 20:00] VITALS: BP 122/74
--- NOTE | 2016-11-01 20:30 | NUR ---
SHIFT ASSESSMENT COMPLETED. PT STATUS REMAINS UNCHANGED FROM PREVIOUS. WILL MONITOR. SIDE RAILS X 2. BED LOW. BED ALARM ON. CALL LIGHT IN REACH.
--- NOTE | 2016-11-02 07:25 | NUR ---
PATIENT RECEIVED IN [place] POSITION RESTING WITH EYES CLOSED. RESPIRATIONS EVEN AND UNLABORED. SIDE RAILS UP X2. BED IN LOW POSITION. CALL LIGHT IN REACH. BED ALARM ON.
[2016-11-02 07:49] VITALS: BP 91/74
--- NOTE | 2016-11-02 08:25 | NUR ---
ENTERED PATIENT ROOM TO FIND PATIENT NOT BREATHING. NO PULSE PRESENT. PATIENT IS DNR STATUS. PHYSICIAN AND [facility] NOTIFIED.
--- NOTE | 2016-11-02 08:50 | NUR ---
CARMINA GERARDO RN WITH [facility] PRESENT
--- NOTE | 2016-11-02 11:09 | NUR ---
PATIENT'S BODY RELEASED TO [facility]
== END 2016-11-02 11:10 | DRG 951 ==
LOC: D.ICU 15:59 → D.MS 15:59 → D.SDCHOLD 15:59 → D.MS 18:34
PROVIDERS: ADMIT Legal Medicine
DX: Z51.5 Encounter for palliative care (principal)